=== PATIENT | male | born 2000 | race Caucasian/White ===

== ENCOUNTER 2019-06-03 17:18 | Emergency (ER) | payer OTHER, SELFPAY ==
[2019-06-03 17:20] VITALS: BP 161/73; PULSE 67; PULSE 72; RESP 16; RESP 18; TEMP 37.1; O2SAT 97; O2SAT 98; BMI 25.7
[2019-06-03 17:22] VITALS: O2SAT 96
[2019-06-03] MEDS: Etomidate 20 MG/10 ML Vial IV (17:22)
[2019-06-03] MEDS: Rocuronium Bromide 50 MG/5 ML Vial IV (17:23)
[2019-06-03] MEDS: Midazolam 2 MG/2 ML Syringe IV (17:24)
--- NOTE | 2019-06-03 17:25 | RAD_ITS ---
STUDY: X-RAY CHEST REASON FOR EXAM: Male, 18 years old. Endotracheal tube placement. TECHNIQUE: Single frontal view of the chest. COMPARISON: None. FINDINGS: There is an endotracheal tube in place terminating 2.6 cm above the jamarcus. There is perihilar fullness associated with peribronchial cuffing. Normal size heart. Normal visualized aortic arch and descending thoracic aorta. Normal visualized thoracic spine. Normal visualized ribs, clavicles, and shoulders. There is no demonstrated abnormality of the visualized soft tissue structures of the upper abdomen. RAD/Chest 1 View (Portable) IMPRESSION: Endotracheal tube terminating 2.6 cm above the jamarcus. Pulmonary venous congestion with possible associated mild edema. Electronically Signed: Virginia Clayton MD at 17:39 EST Tel , Service support ,
[2019-06-03 17:41] LABS: Bedside Glucose 151 mg/dL (70-110)
--- NOTE | 2019-06-03 17:55 | ED.RN ---
PT ARRIVED AND WAS EMERGENTLY INTUBATED AT 1725
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
== END 2019-06-03 17:54 | disposition short-term general hospital (02) ==
PROVIDERS: Emergency Provider Emergency Medicine
DX: S06.9X9A Unspecified intracranial injury with loss of consciousness of unspecified duration, initial encounter (principal); S01.01XA Laceration without foreign body of scalp, initial encounter; S80.212A Abrasion, left knee, initial encounter; R29.3 Abnormal posture; R40.2430 Glasgow coma scale score 3-8, unspecified time; V19.49XA Pedal cycle driver injured in collision with other motor vehicles in traffic accident, initial encounter; Y93.55 Activity, bike riding; Y92.9 Unspecified place or not applicable
CPT/HCPCS: 31500; 51702; 71045; 82962; 99285; J7030; A4216

== ENCOUNTER 2019-06-23 17:46 | Inpatient (IN) | payer SELFPAY, OTHER ==
[2019-06-23 17:50] VITALS: RESP 24; O2SAT 98
[2019-06-23 17:55] VITALS: BP 120/69; PULSE 87; RESP 20; TEMP 36.6; O2SAT 97; BMI 21.7
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
[2019-06-23] MEDS: Jevity 1.5 1,000 ML 60 ML GT (19:52)
[2019-06-23 20:46] LABS: Magnesium 2.4 mg/dL (1.6-2.6)
[2019-06-23 21:00] VITALS: BP 110/61; PULSE 77; RESP 28; TEMP 37.8; O2SAT 98; BMI 21.8
[2019-06-23] MEDS: traZODone 50 MG Tablet GT (21:38)
[2019-06-23] MEDS: Propranolol 10 MG Tablet 20 MG GT (21:38)
[2019-06-24] MEDS: 0.9% Saline Lock 10 ML Syringe IV ×2 (00:12→11:58)
[2019-06-24] MEDS: 0.9% NaCl IVPB Med Flush (250 mL) 15 ML IV (00:17)
--- NOTE | 2019-06-24 05:43 | NURSING ---
pt arrived to the floor via cart per ambulance . parents currently at bed side. pt is non.verbal with no movement at this time. pt has a trach with # 8 shiley, trach cuff is sutured to pt neck and is intact. lungs sounds are diminished through out, bowels sounds are present times 4 quads. oral care completed with mothers' help by talking with pt to keep his mouth open. tongue is noted to have a white coating. swabs and suctioning were used to clean oral cavity. pt repositioned 2 Q hours. pt arrived with mepilex to coccyx area and was removed during and assessment skin is intact this area, but is dark pink in color will continue to monitor. trach care and suctioning provided for comfort , pt is able to cough large amts of creamy colored secretions surgical wound noted to the crown of the head that is dark in color and wound nurse was consulted
[2019-06-24 06:40] VITALS: O2SAT 99
[2019-06-24] MEDS: Enoxaparin 30 MG/0.3 ML Syringe SC (07:12)
[2019-06-24 09:14] VITALS: BP 114/68; PULSE 72; RESP 16; TEMP 36.9; O2SAT 99
[2019-06-24] MEDS: Propranolol 10 MG Tablet 20 MG GT ×4 (09:34→22:15)
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
[2019-06-24 14:00] VITALS: BP 107/67; PULSE 84; RESP 18; TEMP 36.6; O2SAT 98
--- NOTE | 2019-06-24 15:42 | NURSING ---
wound photo: scalp
--- NOTE | 2019-06-24 16:12 | CHAPLAIN ---
Type of Pastoral Visit _x__ Initial Visit ___ Follow-up Visit ___ On-call Visit ___ General Patient Visit ___ Spiritual Assessment ___ Family Conference ___ Bereavement ___ Rapid Response ___ Code Blue ___ Other (describe below) Pastoral Care Referral From ___ Patient _x__ Family ___ Nurse ___ Physician ___ Fire Dispatcher ___ Repair Armature Winder ___ Other (describe below) Sacrament/Intervention _x__ Active listening ___ Anointing ___ Worship ___ Bereavement ___ Communion ___ Nickie exploration ___ ___ Life review _x__ Prayer ___ Reconciliation ___ Sacrament of Sick _x__ Supportive presence ___ Wedding ___ Other (describe below) Pastoral Comments parents of patient are in the room; pt is sleeping at first and then awakens during the visit; parents describe situation and the healing process so far; family is of the Juan nickie and welcome spiritual care; this slab lifting engineer also talks with pt who is not able to respond; pt looks at slab lifting engineer but not yet able to follow the conversation it appears; offer of ongoing presence and support to patient and family; family welcomes prayer
[2019-06-24] MEDS: Pivot 1.5 Cal 1,000 ML 60 ML GT (16:56)
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
[2019-06-24 19:33] VITALS: BP 123/66; PULSE 86; RESP 18; TEMP 36.1; O2SAT 97
[2019-06-24 21:14] VITALS: O2SAT 98
[2019-06-24] MEDS: traZODone 50 MG Tablet GT (22:15)
--- NOTE | 2019-06-25 01:59 | NURSING ---
PT'S INNER TRACH CANNULA CHANGED. PT TOLERATES PROCEDURE WELL. MINIMAL SPUTUM PRODUCTION AT THIS TIME. RESP ARE EVEN AND EASY. ORAL CARE GIVEN.
[2019-06-25 06:58] VITALS: O2SAT 96
[2019-06-25 07:20] LABS: International Normalized Ratio 1.1; Prothrombin Time (Protime)PT. 14.4 SECONDS (11.7-14.9)
[2019-06-25 07:21] LABS: Absolute Lymphocyte Count 1.63 X10^3/uL (0.83-4.51); Absolute Neutrophil Count 3.9 X10^3/uL (2.0-7.7); Basophil# 0.05 X10^3/uL; Basophil% 0.8 % (0-1); Eosinophil# 0.14 X10^3/uL; Eosinophils% 2.2 % (0-5); Hematocrit 32.9 % (40-54); Hemoglobin 10.2 g/dL (13.0-16.5); Lymphocyte # 1.63 X10^3/ul (4.0); Lymphocyte % 26.1 % (19-41); Mean Corpuscular Hgb 26.6 pg (27.0-32.0); Mean Corpuscular Volume 85.7 fL (80-94); Mean Platelet Vol. 11.3 fl (6.2-12.0); Monocyte# 0.51 X10^3/uL; Monocyte% 8.2 % (0-10); NRBC Flagged by Analyzer 0 % (0-5); Neutrophil % 62.4 % (47-70); Platelet Count 388 K/mm3 (150-450); RBC Distribution Width SD 43.7 fl (35.1-43.9); Red Blood Count 3.84 M/mm3 (4.6-6.2); White Blood Count 6.3 K/mm3 (4.4-11.0)
[2019-06-25 07:30] LABS: ALB/GLOB Ratio 0.6 RATIO (0.9-2.4); AST(SGOT) 43 U/L (15-37); Alanine Aminotransfer ALT/SGPT 54 U/L (16-61); Albumin, Serum 3.1 g/dL (3.2-5.0); Alkaline Phosphatase 51 U/L (45-117); Anion Gap 5 (5-15); BUN 30 mg/dL (7-18); BUN/Creat Ratio 48.5 RATIO (10-20); Chloride 112 mmol/L (98-107); Creatinine, Serum 0.62 mg/dL (0.70-1.30); EST Glomerular Filtration Rate 174 mL/min (>60); Est Glom Filt Rate - Afr Amer 211 mL/min (>60); Estimated Creatinine Clearance 167.94 ml/min; Globulin 5.1 g/dL (2.2-4.2); Glucose 116 mg/dL (74-106); Magnesium 2.4 mg/dL (1.6-2.6); Phosphorus 3.5 mg/dL (2.5-4.9); Potassium 3.8 mmol/L (3.5-5.1); Protein, Total 8.2 g/dL (6.4-8.2); Sodium Level 146 mmol/L (136-145)
[2019-06-25] MEDS: Enoxaparin 40 MG/0.4 ML Syringe SC (07:37)
[2019-06-25 08:50] VITALS: BP 112/65; PULSE 82; RESP 20; TEMP 36.7; O2SAT 96
[2019-06-25 10:00] VITALS: O2SAT 97
[2019-06-25] MEDS: Pivot 1.5 Cal 1,000 ML 60 ML GT (10:34)
[2019-06-25] MEDS: Propranolol 10 MG Tablet 20 MG GT ×4 (10:34→21:54)
[2019-06-25] MEDS: Acetaminophen 650 MG/20 ML UDC GT ×2 (10:45→18:23)
[2019-06-25] MEDS: Loperamide 2 MG Capsule GT (14:40)
[2019-06-25] MEDS: traZODone 50 MG Tablet GT (21:54)
[2019-06-25 22:00] VITALS: BP 113/58; PULSE 79; RESP 18; TEMP 36.1; O2SAT 100
--- NOTE | 2019-06-26 03:00 | NURSING ---
pt noted to be coughing with increased secretions at this time. trach care provided. cleansed around trach and new inner cannula inserted. pt tolerated procedure well. PEG care provided at this time as well.
--- NOTE | 2019-06-26 05:03 | NURSING ---
Reviewed and agree with LPNs handoff
[2019-06-26] MEDS: Pivot 1.5 Cal 1,000 ML 60 ML GT (05:45)
[2019-06-26] MEDS: Enoxaparin 40 MG/0.4 ML Syringe SC (05:45)
[2019-06-26] MEDS: Acetaminophen 650 MG/20 ML UDC GT ×3 (06:00→22:54)
--- NOTE | 2019-06-26 06:15 | NURSING ---
pt had increased secretions at this time, suction done. pt tolerated procedure well. lungs clear. coughs up excess secretions with ease. will continue to monitor for the need to suction.
[2019-06-26 07:00] VITALS: BP 119/68; PULSE 82; RESP 18; TEMP 36.8; O2SAT 98
[2019-06-26 07:52] VITALS: O2SAT 98
[2019-06-26] MEDS: Propranolol 10 MG Tablet 20 MG GT ×4 (08:33→22:54)
[2019-06-26] MEDS: Menthol/Lanolin/Calamine/Znox 113 GM Tube 1 APPLIC TOPICAL ×3 (08:33→22:50)
[2019-06-26] MEDS: Loperamide 2 MG Capsule GT ×2 (08:33→14:32)
--- NOTE | 2019-06-26 14:03 | NURSING ---
Message left for Dr. Ruby office nurse to have call back regarding culture report.
--- NOTE | 2019-06-26 14:30 | NURSING ---
Dr. Ruby nurse Bethany reported that he is out for the day and Dr. Sow has been made aware. NNO's per Dr. Sow. Patient is afebrile.
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
[2019-06-26 22:00] VITALS: BP 118/72; PULSE 80; RESP 18; TEMP 36.3; O2SAT 95; O2SAT 97
[2019-06-26] MEDS: traZODone 50 MG Tablet GT (22:54)
[2019-06-27] MEDS: Pivot 1.5 Cal 1,000 ML 60 ML GT ×2 (01:17→21:29)
[2019-06-27] MEDS: Enoxaparin 40 MG/0.4 ML Syringe SC (04:51)
--- NOTE | 2019-06-27 06:43 | NURSING ---
Reviewed and agree with LPNs handoff
[2019-06-27] MEDS: Menthol/Lanolin/Calamine/Znox 113 GM Tube 1 APPLIC TOPICAL ×3 (07:00→21:35)
--- NOTE | 2019-06-27 07:52 | PCM.PN.BLA ---
Progress Note Received call from nursing staff regarding the patient's sputum culture which was positive for Klebsiella pneumonia with 2+ growth. The organism appears to be pansensitive. However, given that the patient remains afebrile and is clinically stable without evidence of an elevated white blood cell count or significant airway secretions, I do not see an indication for antibiotics to be started at this time. We will continue to monitor accordingly.
[2019-06-27 08:02] VITALS: BP 101/52; PULSE 70; RESP 20; TEMP 36.9; O2SAT 99
[2019-06-27] MEDS: Propranolol 10 MG Tablet 20 MG GT ×4 (08:42→21:37)
[2019-06-27] MEDS: Acetaminophen 650 MG/20 ML UDC GT ×2 (08:42→21:37)
[2019-06-27 08:50] VITALS: O2SAT 98
[2019-06-27] MEDS: Loperamide 2 MG Capsule GT ×3 (09:22→21:37)
[2019-06-27 12:20] VITALS: O2SAT 98
[2019-06-27] MEDS: Fluconazole Suspension 40 MG/ML 35 ML Bottle 200 MG GT (15:25)
[2019-06-27 18:51] LABS: Bedside Glucose 102 mg/dL (70-110)
[2019-06-27 19:32] VITALS: BP 119/83; PULSE 81; RESP 18; TEMP 36.7; O2SAT 98
[2019-06-27] MEDS: traZODone 50 MG Tablet GT (21:37)
[2019-06-27 22:00] VITALS: PULSE 81; RESP 16
[2019-06-28] MEDS: Pivot 1.5 Cal 1,000 ML 60 ML GT ×2 (05:53→17:53)
[2019-06-28] MEDS: Loperamide 2 MG Capsule GT ×3 (05:53→21:20)
[2019-06-28] MEDS: Enoxaparin 40 MG/0.4 ML Syringe SC (06:02)
[2019-06-28] MEDS: Menthol/Lanolin/Calamine/Znox 113 GM Tube 1 APPLIC TOPICAL ×3 (06:03→21:18)
[2019-06-28 07:05] LABS: Bedside Glucose 102 mg/dL (70-110)
[2019-06-28 07:21] VITALS: BP 107/65; PULSE 85; RESP 17; TEMP 36.9; O2SAT 97
[2019-06-28 08:08] VITALS: O2SAT 95
[2019-06-28] MEDS: Propranolol 10 MG Tablet 20 MG GT ×4 (08:52→21:20)
[2019-06-28] MEDS: Fluconazole Suspension 40 MG/ML 35 ML Bottle 200 MG GT (08:52)
[2019-06-28] MEDS: Acetaminophen 650 MG/20 ML UDC GT ×2 (14:38→21:18)
[2019-06-28 17:01] LABS: Bedside Glucose 124 mg/dL (70-110)
[2019-06-28 19:30] VITALS: BP 113/70; PULSE 77; RESP 16; TEMP 36.6; O2SAT 97
[2019-06-28] MEDS: traZODone 50 MG Tablet GT (21:20)
[2019-06-28 22:00] VITALS: RESP 16
[2019-06-29 05:45] LABS: Absolute Lymphocyte Count 1.71 X10^3/uL (0.83-4.51); Absolute Neutrophil Count 4.4 X10^3/uL (2.0-7.7); Basophil# 0.03 X10^3/uL; Basophil% 0.4 % (0-1); Eosinophil# 0.14 X10^3/uL; Hematocrit 34.1 % (40-54); Hemoglobin 10.9 g/dL (13.0-16.5); Lymphocyte # 1.71 X10^3/ul (4.0); Mean Corpuscular Hgb 26.5 pg (27.0-32.0); Mean Platelet Vol. 11.3 fl (6.2-12.0); Monocyte# 0.55 X10^3/uL; NRBC Flagged by Analyzer 0 % (0-5); Neutrophil # 4.39 X10^3/uL (2.7-7.7); Neutrophil % 64.2 % (47-70); Platelet Count 261 K/mm3 (150-450); RBC Distribution Width CV 14.3 % (11.6-14.6); RBC Distribution Width SD 42.3 fl (35.1-43.9); Red Blood Count 4.11 M/mm3 (4.6-6.2); White Blood Count 6.9 K/mm3 (4.4-11.0)
[2019-06-29 05:55] LABS: Anion Gap 6 (5-15); BUN 25 mg/dL (7-18); BUN/Creat Ratio 36.8 RATIO (10-20); Calcium,Total 9.2 mg/dL (8.5-10.1); Chloride 104 mmol/L (98-107); Creatinine, Serum 0.68 mg/dL (0.70-1.30); EST Glomerular Filtration Rate 156 mL/min (>60); Est Glom Filt Rate - Afr Amer 189 mL/min (>60); Estimated Creatinine Clearance 153.13 ml/min; Glucose 116 mg/dL (74-106); Magnesium 1.9 mg/dL (1.6-2.6); Phosphorus 4.2 mg/dL (2.5-4.9); Potassium 3.9 mmol/L (3.5-5.1); Sodium Level 137 mmol/L (136-145)
[2019-06-29] MEDS: Enoxaparin 40 MG/0.4 ML Syringe SC (06:01)
[2019-06-29] MEDS: Loperamide 2 MG Capsule GT ×4 (06:02→21:47)
[2019-06-29] MEDS: Menthol/Lanolin/Calamine/Znox 113 GM Tube 1 APPLIC TOPICAL ×3 (06:02→21:47)
[2019-06-29 06:56] LABS: Bedside Glucose 125 mg/dL (70-110)
[2019-06-29 08:07] VITALS: BP 104/58; PULSE 69; RESP 16; TEMP 36.9; O2SAT 99
[2019-06-29] MEDS: Fluconazole Suspension 40 MG/ML 35 ML Bottle 200 MG GT (09:01)
[2019-06-29] MEDS: Acetaminophen 650 MG/20 ML UDC GT (09:02)
[2019-06-29] MEDS: Propranolol 10 MG Tablet 20 MG GT ×4 (09:02→21:59)
--- NOTE | 2019-06-29 12:25 | CASEMGMT ---
Social Work IDT met with patient and parents for Team Meeting. Discussed patient's progress in therapy. Pt is able to track with his eyes, focusing better, and starting to respond with facial expressions. Pt's head control is limited but able to turn head on his own at times. Pt is yuriy lift for transfers, OT working on ROM - pt has more tone on right side than left. Pt able to follow directions at times, just needing extra time to process and perform task. Pt is total assist for ADLs. ST continuing to work on processing. Nursing in tune with facial expressions or body sings to asses for pain. Therapy recommending neck brace to assist with neck muscles and strength. Left message with [employer] for quote as pt is private pay. Pt was approved at [facility] and will transfer 06/30. Plan: Transfer to [facility] 06/30. LENORE Kimbrough
[2019-06-29] MEDS: Pivot 1.5 Cal 1,000 ML 60 ML GT (13:27)
--- NOTE | 2019-06-29 13:39 | NURSING ---
the scabbed area to the posterior head remains dry and stable. no surrounding erythema. the scab is loosening slightly around the edges. will continue to monitor. pt will be moving down to TCU tomorrow. will follow patient there as needed as well.
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
--- NOTE | 2019-06-29 17:02 | CHAPLAIN ---
Type of Pastoral Visit ___ Initial Visit _x__ Follow-up Visit ___ On-call Visit ___ General Patient Visit ___ Spiritual Assessment ___ Family Conference ___ Bereavement ___ Rapid Response ___ Code Blue ___ Other (describe below) Pastoral Care Referral From ___ Patient _x__ Family ___ Nurse ___ Physician ___ General Office Worker ___ Peoplesoft Developer ___ Other (describe below) Sacrament/Intervention ___ Active listening ___ Anointing ___ Jew ___ Bereavement ___ Communion ___ Nickie exploration ___ ___ Life review _x__ Prayer ___ Reconciliation ___ Sacrament of Sick _x__ Supportive presence ___ Wedding ___ Other (describe below) Pastoral Comments mother of patient is in the room with him; talked with mother but pt is alert and seems to be aware of the conversation and surroundings
[2019-06-29] MEDS: tiZANidine HCl 2 MG Tablet GT (21:47)
[2019-06-29] MEDS: traZODone 50 MG Tablet GT (21:47)
[2019-06-29 22:00] VITALS: BP 115/62; PULSE 78; RESP 16; TEMP 36.3; O2SAT 97
[2019-06-30] MEDS: Pivot 1.5 Cal 1,000 ML 60 ML GT (04:15)
[2019-06-30] MEDS: Enoxaparin 40 MG/0.4 ML Syringe SC (06:14)
[2019-06-30] MEDS: Loperamide 2 MG Capsule GT ×2 (06:14→13:45)
[2019-06-30] MEDS: Menthol/Lanolin/Calamine/Znox 113 GM Tube 1 APPLIC TOPICAL ×2 (06:15→13:45)
[2019-06-30 09:32] VITALS: BP 110/71; PULSE 76; RESP 16; TEMP 36.7; O2SAT 97
[2019-06-30] MEDS: Fluconazole Suspension 40 MG/ML 35 ML Bottle 200 MG GT (09:38)
[2019-06-30] MEDS: Propranolol 10 MG Tablet 20 MG GT ×2 (09:38→13:45)
[2019-06-30] MEDS: Acetaminophen 650 MG/20 ML UDC GT (09:42)
[2019-06-30 09:55] VITALS: O2SAT 95
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
[2019-06-30 13:24] VITALS: BP 112/70; PULSE 76; RESP 16; TEMP 36.7; O2SAT 98
[2019-06-30 14:02] VITALS: BP 112/70; PULSE 76; RESP 16; TEMP 36.7; O2SAT 98
--- NOTE | 2019-06-30 14:04 | NURSING ---
discharged to TCU. Family present. denies questions or concerns.
== END 2019-06-30 14:00 | disposition skilled nursing facility (03) | DRG 949 ==
PROVIDERS: Family Medicine; Hospitalist; Admitting Provider Internal Medicine; Family Provider Family Medicine; PCP Family Medicine; Visit Provider Internal Medicine
DX: S06.5X Traumatic subdural hemorrhage (principal); J96.11 Chronic respiratory failure with hypoxia; D62 Acute posthemorrhagic anemia; S27.329D Contusion of lung, unspecified, subsequent encounter; V13.4XXD Pedal cycle driver injured in collision with car, pick-up truck or van in traffic accident, subsequent encounter; Z93.0 Tracheostomy status; Z93.1 Gastrostomy status
CPT/HCPCS: 31502; 31720; 36415; 80048; 80053; 82962; 83735; 84100; 85025; 85610; 87070; 87077; 87186; 87205; 92507; 92523; 92526; 92610; 97110; 97112; 97140; 97162; 97166; 97530; 97535; 97802; 97803; 99251; J7050; A4216; G0463; J0295

== ENCOUNTER 2019-06-30 14:00 | Inpatient (IN) | payer SELFPAY, OTHER ==
[2019-06-30 14:44] VITALS: BP 104/61; PULSE 74; RESP 16; TEMP 36.7; BMI 22.1
--- NOTE | 2019-06-30 16:19 | NURSING ---
PT ARRIVED FROM REHAB FLOOR BY BED AT 1400. FAMILY WITH PT.
--- NOTE | 2019-06-30 16:22 | NS ---
Recommend Jevity 1.5 via PEG at goal rate of 60mL/hour w/ 200mL H2O flush every 4 hours to provide 2160 calories, 91.8 g protein, and 2294mL total fluid per day. Would recommend starting Jevity at 20mL/hour and increase by 20mL every 8 hours as res tolerates until goal rate achieved. May be appropriate to transition res to bolus feeds as new formula is tolerated- consult RD for adjusted recommendations as warranted. Lizy Ayoub MS, RDN, LD
--- NOTE | 2019-06-30 18:16 | NURSING ---
PT FAMILY WISHES FOR PT TO BE FULL CODE. REPORTED TO HELEN CMCAIN
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
[2019-06-30] MEDS: MELATONIN 10 MG TABLET 5 MG PO (22:14)
[2019-06-30] MEDS: Menthol/Lanolin/Calamine/Znox 113 GM Tube 1 APPLIC TOPICAL (22:15)
[2019-06-30] MEDS: tiZANidine HCl 2 MG Tablet GT (22:15)
[2019-06-30] MEDS: Propranolol 10 MG Tablet 20 MG GT (22:23)
[2019-06-30] MEDS: Jevity 1.5 1,000 ML 60 ML GT (22:32)
--- NOTE | 2019-06-30 23:05 | NURSING ---
Per Darvin in pharmacy administer 2200 Propranolol now hold 1700 dosage. Bottle of Jevity hung at this time.
[2019-07-01] MEDS: Fluconazole Suspension 40 MG/ML 35 ML Bottle 200 MG GT (03:56)
[2019-07-01] MEDS: Propranolol 10 MG Tablet 20 MG GT ×4 (03:58→20:51)
[2019-07-01] MEDS: Menthol/Lanolin/Calamine/Znox 113 GM Tube 1 APPLIC TOPICAL ×3 (03:58→20:51)
[2019-07-01] MEDS: Enoxaparin 40 MG/0.4 ML Syringe SC (04:09)
[2019-07-01 06:17] LABS: Absolute Lymphocyte Count 1.67 X10^3/uL (0.83-4.51); Absolute Neutrophil Count 5.2 X10^3/uL (2.0-7.7); Basophil# 0.05 X10^3/uL; Basophil% 0.6 % (0-1); Eosinophil# 0.14 X10^3/uL; Eosinophils% 1.8 % (0-5); Hematocrit 36.1 % (40-54); Hemoglobin 11.4 g/dL (13.0-16.5); Lymphocyte # 1.67 X10^3/ul (4.0); Lymphocyte % 21.4 % (19-41); Mean Corp Hgb Conc 31.6 g/dL (32-36); Mean Corpuscular Hgb 26.4 pg (27.0-32.0); Mean Corpuscular Volume 83.6 fL (80-94); Mean Platelet Vol. 11.8 fl (6.2-12.0); Monocyte# 0.66 X10^3/uL; Monocyte% 8.5 % (0-10); NRBC Flagged by Analyzer 0 % (0-5); Neutrophil # 5.23 X10^3/uL (2.7-7.7); Neutrophil % 67.2 % (47-70); Platelet Count 256 K/mm3 (150-450); RBC Distribution Width CV 14.6 % (11.6-14.6); RBC Distribution Width SD 43.9 fl (35.1-43.9); Red Blood Count 4.32 M/mm3 (4.6-6.2); White Blood Count 7.8 K/mm3 (4.4-11.0)
[2019-07-01 06:27] LABS: Anion Gap 6 (5-15); BUN 22 mg/dL (7-18); BUN/Creat Ratio 31.6 RATIO (10-20); Calcium,Total 9.5 mg/dL (8.5-10.1); Chloride 105 mmol/L (98-107); EST Glomerular Filtration Rate 152 mL/min (>60); Est Glom Filt Rate - Afr Amer 184 mL/min (>60); Estimated Creatinine Clearance 151.11 ml/min; Glucose 122 mg/dL (74-106); Potassium 3.9 mmol/L (3.5-5.1); Sodium Level 139 mmol/L (136-145)
[2019-07-01 06:55] LABS: Phosphorus 4.8 mg/dL (2.5-4.9)
[2019-07-01 10:56] VITALS: BP 113/57; PULSE 86
[2019-07-01] MEDS: Tuberculin,Purif.prot.deriv. 50 TU/ML Vial 5 ML ID (10:58)
[2019-07-01 15:16] VITALS: BP 106/62; PULSE 73; RESP 18; TEMP 36.7; O2SAT 97
[2019-07-01] MEDS: Jevity 1.5 1,000 ML 60 ML GT (16:00)
[2019-07-01] MEDS: tiZANidine HCl 2 MG Tablet GT (20:51)
[2019-07-01] MEDS: MELATONIN 10 MG TABLET 5 MG PO (20:51)
[2019-07-02] MEDS: Fluconazole Suspension 40 MG/ML 35 ML Bottle 200 MG GT (04:56)
[2019-07-02] MEDS: Propranolol 10 MG Tablet 20 MG GT ×2 (04:56→11:32)
[2019-07-02] MEDS: Menthol/Lanolin/Calamine/Znox 113 GM Tube 1 APPLIC TOPICAL (04:57)
[2019-07-02] MEDS: Enoxaparin 40 MG/0.4 ML Syringe SC (05:13)
--- NOTE | 2019-07-02 07:35 | NURSING ---
INnner cannula changed with AM med pass. Pt tolerated well
[2019-07-02] MEDS: Jevity 1.5 1,000 ML 60 ML GT (11:39)
--- NOTE | 2019-07-02 15:20 | PCM.PN.RX ---
<Khadra Vo M - Last Filed: 07/02/19 15:20> Progress Note - Pharmacy Subjective: TCU ADMISSION Objective: Allergies Unable to Assess Allergy (Verified 06/03/19 17:47) Current Medications Generic Name Dose Route Start Last Admin Trade Name Freq PRN Reason Stop Dose Admin Acetaminophen 650 mg 06/30/19 15:19 Tylenol Liquid GT Q6H PRN PRN Pain 1-10 or Fever Bisacodyl 10 mg 06/30/19 15:19 Dulcolax RECTAL DAILY PRN Constipation Calamine/Phenol 1 applic 06/30/19 22:00 07/02/19 04:57 Calmoseptine Ointment TOPICAL 1 applicatio TID MIGUEL ÁNGEL Administration Protocol Enoxaparin Sodium 40 mg 07/01/19 06:00 07/02/19 05:13 Lovenox SC 40 mg DAILY@0600 MIGUEL ÁNGEL Administration Fluconazole 200 mg 07/01/19 06:00 07/02/19 04:56 Fluconazole GT 07/10/19 06:01 200 mg DAILY MIGUEL ÁNGEL Administration Enteral Nutritional Formula 1,000 mls @ 60 mls/hr 06/30/19 15:30 07/02/19 11:39 Jevity 1.5 GT 60 mls/hr .[id number] MIGUEL ÁNGEL Administration Loperamide HCl 2 mg 06/30/19 15:19 Imodium Liquid GT Q4H PRN PRN Diarrhea Loperamide HCl 2 mg 06/30/19 22:00 07/02/19 14:37 Imodium Liquid PO Not Given Q8 MIGUEL ÁNGEL Melatonin 5 mg 06/30/19 22:00 07/01/19 20:51 Melatonin PO 5 mg QHS MIGUEL ÁNGEL Administration Multi-Ingredient Cream 1 applic 06/30/19 22:00 07/01/19 20:51 Eucerin TOPICAL 1 applicatio QHS MIGUEL ÁNGEL Administration Protocol Propranolol HCl 20 mg 06/30/19 17:00 07/02/19 11:32 Inderal GT 20 mg 4X/DAY MIGUEL ÁNGEL Administration Tizanidine HCl 2 mg 06/30/19 20:00 07/01/19 20:51 Zanaflex GT 2 mg QHS@2000 MIGUEL ÁNGEL Administration Tuberculin PPD 5 tu 07/08/19 10:00 Tubersol, Aplisol, Ppd ID 07/08/19 10:01 X1 ONE Problem List (Last Reviewed 06/24/19 @ 12:43 by AVEL Cheng Debility (Acute) Scalp laceration (Chronic) Insomnia (Chronic) Vital Signs Temp Pulse Resp BP Pulse Ox 98.1 F 73 18 106/62 97 07/01/19 15:16 07/01/19 15:16 07/01/19 15:16 07/01/19 15:16 07/01/19 15:16 Oxygen Flow Rate (L/min) 4 Oxygen Delivery Method Trach Collar Weight: 64 kg Body Mass Index (BMI) 22.1 Finger Stick Blood Glucose 151 Sodium 139 mmol/L (136-145) 07/01/19 05:05 Potassium 3.9 mmol/L (3.5-5.1) 07/01/19 05:05 Chloride 105 mmol/L (98-107) 07/01/19 05:05 Carbon Dioxide 28.0 mmol/L (21.0-32.0) 07/01/19 05:05 Anion Gap 6 (5-15) 07/01/19 05:05 BUN 22 mg/dL (7-18) H 07/01/19 05:05 Creatinine 0.70 mg/dL (0.70-1.30) 07/01/19 05:05 Est GFR (MDRD) Af Amer 184 mL/min (>60) 07/01/19 05:05 Est GFR (MDRD) Non-Af 152 mL/min (>60) 07/01/19 05:05 BUN/Creatinine Ratio 31.6 RATIO (10-20) H 07/01/19 05:05 Glucose 122 mg/dL (74-106) H 07/01/19 05:05 Assessment/Plan: 1. Pain: Tylenol Liquid 650mg GT Q6H PRN pain. Please continue to monitor PRN usage, S/S of increased or decreased pain 2. DVT prophylaxis: Lovenox 40mg SC daily. Please continue to monitor renal function, S/S bleeding and/or bruising 3. Thrush: Fluconazole 200mg GT daily thru 07/10/2019. Please continue to monitor for thrush improvement, medication effectiveness *4. Insomnia - Melatonin 5mg GT QHS. Please continue to monitor for medication effectiveness. May consider re-timing med ~2hrs prior to patient's bedtime for optimum results. 5. Tachycardia - Propranolol 20mg GT 4x/day. Please continue to monitor pulse, BP, medication effectiveness 6. Muscle spasm - Tizanidine 2mg GT QHS. Please continue to monitor patient for continued spasms, medication effectiveness Psychotropic Medications: None Unnecessary Medications: None *Bowel Regimen: Imodium 2mg GT Q8H, Imodium 2mg GT Q4H PRN diarrhea, Dulcolax 10mg OH daily PRN constipation. Please continue to monitor patient's bowel status, amount of bowel movements/diarrhea. Should the patient become constipated, consider discontinuing the patient's scheduled Imodium as to not further his constipation Date of Note:: 07/02/19 - Provider Comments Provider responsibility: Provider responsible to enter orders to implement recommendations <Joe Amaral Chi - Last Filed: 07/02/19 20:25> Progress Note - Pharmacy Subjective: [] Objective: Allergies Unable to Assess Allergy (Verified 06/03/19 17:47) Vital Signs Temp Pulse Resp BP Pulse Ox 98.1 F 66 17 112/65 98 07/02/19 16:00 07/02/19 16:00 07/02/19 16:00 07/02/19 16:00 07/02/19 16:00 Oxygen Flow Rate (L/min) 4 Oxygen Delivery Method Room Air Weight: 64 kg Body Mass Index (BMI) 22.1 Finger Stick Blood Glucose 151 Sodium 139 mmol/L (136-145) 07/01/19 05:05 Potassium 3.9 mmol/L (3.5-5.1) 07/01/19 05:05 Chloride 105 mmol/L (98-107) 07/01/19 05:05 Carbon Dioxide 28.0 mmol/L (21.0-32.0) 07/01/19 05:05 Anion Gap 6 (5-15) 07/01/19 05:05 BUN 22 mg/dL (7-18) H 07/01/19 05:05 Creatinine 0.70 mg/dL (0.70-1.30) 07/01/19 05:05 Est GFR (MDRD) Af Amer 184 mL/min (>60) 07/01/19 05:05 Est GFR (MDRD) Non-Af 152 mL/min (>60) 07/01/19 05:05 BUN/Creatinine Ratio 31.6 RATIO (10-20) H 07/01/19 05:05 Glucose 122 mg/dL (74-106) H 07/01/19 05:05 Assessment/Plan: Psychotropic Medications: Unnecessary Medications: Bowel Regimen: - Provider Comments Provider responsibility: Provider responsible to enter orders to implement recommendations Provider Comments to Recommendations by Pharmacy: Agree
[2019-07-02 16:00] VITALS: BP 112/65; PULSE 66; RESP 17; TEMP 36.7; O2SAT 98
--- NOTE | 2019-07-02 17:49 | NURSING ---
Dr Mims's nurse practitioner, Melba regarding plastic white piece sticking up on Rt side of scalp. no drng or s/s infection noted. She states that is his shunt and he needs to be transferred back to [facility][1] to ER to be admitted, high risk of infection. DR Amaral updated, pt being transferred by [facility]. Family updated, mother stated that she was never told he had a shunt.
--- NOTE | 2019-07-02 17:51 | DCINST_ITS ---
- Discharge Diagnoses Current Active Problems: Current Active and Chronic Problems (Last Reviewed 06/24/19 @ 12:43 by Lisa Daly DO) Debility (Acute) Scalp laceration (Chronic) Insomnia (Chronic) You will use the following diet at home:: Other - NPO. Discharge Activity: Return to Normal Activity Call your doctor if you observe: Fever of 101 or Higher, Inability to urinate, Inability to have a bowel movement, Chest pain, Uncontrolled pain Allergies/Adverse Reactions: Allergies Unable to Assess Allergy (Verified 06/03/19 17:47) Medications to take at Discharge Jevity 1.5 60 ml GT DAILY 06/23/19 Propranolol HCl [Inderal (Beta Paco)] 20 mg GT 4X/DAY 06/23/19 Acetaminophen Liquid [Tylenol Liquid] 650 mg GT Q6H PRN PRN udc 06/30/19 Bisacodyl [Dulcolax] 10 mg RECTAL DAILY PRN 06/30/19 Enoxaparin [Lovenox] 40 mg SUBCUT DAILY@0600 06/30/19 Fluconazole Suspension [Fluconazole] 200 mg GT DAILY 06/30/19 Loperamide [Imodium] 2 mg GT Q4H PRN PRN cap 06/30/19 Loperamide [Imodium] 2 mg GT Q8 06/30/19 Melatonin/Pyridoxine [Melatonin 5 mg Tablet] 1 ea PO QHS 06/30/19 Menthol/Lanolin/Calamine/Znox [Calmoseptine Ointment] 1 applic TOPICAL TID 06/30/19 Tizanidine HCl [Zanaflex] 2 mg GT QHS@2000 06/30/19 Loperamide [Imodium Liquid] 2 mg PO Q8 ml 07/02/19 Mineral Oil/Petrolatum,White [Eucerin] 1 applic TOPICAL QHS jar 07/02/19 Primary Care Physician: Darvin Telles MD [Primary Care Provider] - Test Results: Test results from this visit will be discussed in further detail at your follow- up appointment, if applicable. Please Follow Up With: Dr. Leia Lynne Proposed Discharge Date: 07/02/19
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
--- NOTE | 2019-07-02 18:24 | NURSING ---
report called to [facility] at this time. oliveira summit here and pt placed on cot, oxygen via trach collar at 28%. PEG tube disconnected from kangaroo pump and flushed for transport. mother at side.
--- NOTE | 2019-07-02 22:59 | NURSING ---
Call from HELEN Solomon at [facility] stating pt is discharged and will be returning back to the unit tonight. Stating Dr. Lynne was consulted and the area is fine to schedule a F/U. He stated no medications were administered, no labs taken or no images were taken. Pt to depart via cot between [phone].
[2019-07-03] VITALS: BP 120/67; PULSE 74; RESP 18; TEMP 37.2
[2019-07-03] MEDS: Jevity 1.5 1,000 ML 60 ML GT ×2 (00:14→19:10)
[2019-07-03] MEDS: MELATONIN 10 MG TABLET 5 MG PO ×2 (00:16→21:47)
[2019-07-03] MEDS: Propranolol 10 MG Tablet 20 MG GT ×5 (00:17→21:47)
[2019-07-03] MEDS: tiZANidine HCl 2 MG Tablet GT ×2 (00:17→21:47)
[2019-07-03] MEDS: Menthol/Lanolin/Calamine/Znox 113 GM Tube 1 APPLIC TOPICAL ×4 (00:28→21:49)
[2019-07-03] MEDS: Fluconazole Suspension 40 MG/ML 35 ML Bottle 200 MG GT (05:27)
[2019-07-03] MEDS: Enoxaparin 40 MG/0.4 ML Syringe SC (05:29)
[2019-07-03 06:11] LABS: Absolute Lymphocyte Count 1.57 X10^3/uL (0.83-4.51); Absolute Neutrophil Count 3.1 X10^3/uL (2.0-7.7); Basophil# 0.05 X10^3/uL; Basophil% 0.9 % (0-1); Eosinophils% 1.9 % (0-5); Hematocrit 34.6 % (40-54); Lymphocyte # 1.57 X10^3/ul (4.0); Lymphocyte % 29.1 % (19-41); Mean Corp Hgb Conc 31.8 g/dL (32-36); Mean Corpuscular Hgb 26.4 pg (27.0-32.0); Mean Platelet Vol. 11.8 fl (6.2-12.0); Monocyte# 0.55 X10^3/uL; Monocyte% 10.2 % (0-10); NRBC Flagged by Analyzer 0 % (0-5); Neutrophil # 3.12 X10^3/uL (2.7-7.7); Neutrophil % 57.7 % (47-70); Platelet Count 209 K/mm3 (150-450); RBC Distribution Width CV 14.6 % (11.6-14.6); RBC Distribution Width SD 43.8 fl (35.1-43.9); Red Blood Count 4.17 M/mm3 (4.6-6.2); White Blood Count 5.4 K/mm3 (4.4-11.0)
[2019-07-03 06:28] LABS: Anion Gap 5 (5-15); BUN 19 mg/dL (7-18); Calcium,Total 9.5 mg/dL (8.5-10.1); Chloride 104 mmol/L (98-107); Creatinine, Serum 0.73 mg/dL (0.70-1.30); EST Glomerular Filtration Rate 144 mL/min (>60); Est Glom Filt Rate - Afr Amer 174 mL/min (>60); Glucose 140 mg/dL (74-106); Magnesium 2.1 mg/dL (1.6-2.6); Phosphorus 4.8 mg/dL (2.5-4.9); Potassium 3.9 mmol/L (3.5-5.1); Sodium Level 139 mmol/L (136-145)
[2019-07-03 12:16] VITALS: BP 108/60; PULSE 86
[2019-07-03] MEDS: Acetaminophen 650 MG/20 ML UDC GT (13:40)
--- NOTE | 2019-07-03 15:09 | MDS.RN ---
staff observation for pain for gage 07/07/19 completed.
[2019-07-03 16:00] VITALS: BP 100/62; PULSE 73; RESP 18; TEMP 37.1; O2SAT 98
--- NOTE | 2019-07-03 16:17 | NURSING ---
spoke to DR Cabrera's membership secretary, he wants to see pt on at 3pm to assess the ICP monitor or possible shunt that is protruding from pt head. Wants staff to cover protruding object w/4x4 gauze to protect site. Mother has many questions since pt nonverbal. Called Dr Haji office left message that mother needs to speak with someone regarding what they will actually do while pt at their office. Family leery about sending pt in another ambulance for transport since [facility] did nothing last evening and they are private pay. awaiting return call.
[2019-07-04] MEDS: Enoxaparin 40 MG/0.4 ML Syringe SC (06:48)
[2019-07-04] MEDS: Propranolol 10 MG Tablet 20 MG GT ×4 (06:50→21:57)
[2019-07-04] MEDS: Fluconazole Suspension 40 MG/ML 35 ML Bottle 200 MG GT (06:53)
[2019-07-04] MEDS: Menthol/Lanolin/Calamine/Znox 113 GM Tube 1 APPLIC TOPICAL ×3 (07:10→22:02)
[2019-07-04 11:00] VITALS: BP 108/70; PULSE 75; O2SAT 94
[2019-07-04] MEDS: Acetaminophen 650 MG/20 ML UDC GT ×2 (11:03→21:55)
[2019-07-04 13:30] VITALS: O2SAT 99
--- NOTE | 2019-07-04 13:30 | CPS ---
Found cool aerosol running off 4lpm, increased to 6lpm as required by manufacturers guidelines.
[2019-07-04 16:00] VITALS: BP 109/70; PULSE 68; RESP 18; TEMP 36.5; O2SAT 99
[2019-07-04] MEDS: Jevity 1.5 1,000 ML 60 ML GT (16:20)
[2019-07-04] MEDS: MELATONIN 10 MG TABLET 5 MG PO (21:57)
[2019-07-04] MEDS: tiZANidine HCl 2 MG Tablet GT (21:57)
--- NOTE | 2019-07-04 23:42 | NURSING ---
Inner cannula changed this AM pt tolerated well.
[2019-07-05] MEDS: Fluconazole Suspension 40 MG/ML 35 ML Bottle 200 MG GT (06:17)
[2019-07-05] MEDS: Enoxaparin 40 MG/0.4 ML Syringe SC (06:17)
[2019-07-05] MEDS: Propranolol 10 MG Tablet 20 MG GT ×4 (06:17→21:28)
[2019-07-05] MEDS: Menthol/Lanolin/Calamine/Znox 113 GM Tube 1 APPLIC TOPICAL ×3 (06:21→21:39)
--- NOTE | 2019-07-05 06:47 | NURSING ---
Cleaning performed using sterile technique, inner cannula replaced with new one. Cleansed tracheostomy site using normal saline, moistened cotton applicator and 4x4 gauze and a dried 4x4 gauze. Ostomy site tissue intact and a small amount of drainage on old dressing. Pt tolerated well call light within reach and HOB elevated at 30 degrees.
[2019-07-05] MEDS: Jevity 1.5 1,000 ML 60 ML GT (11:40)
[2019-07-05 13:40] VITALS: O2SAT 99
[2019-07-05 16:00] VITALS: BP 105/62; PULSE 69; RESP 20; TEMP 37.1; O2SAT 99
--- NOTE | 2019-07-05 19:14 | NURSING ---
Inner cannula changed, 4x4 split gauze replaced after cleaning stoma, pt coughed up small amount of sputum, Ostomy site cleaned small amount of dry crusty drainage, split drg changed, Jevity maintained through pump, pt tolerated procedure well
[2019-07-05] MEDS: MELATONIN 10 MG TABLET 5 MG PO (21:29)
[2019-07-05] MEDS: tiZANidine HCl 2 MG Tablet GT (21:29)
[2019-07-06] MEDS: Enoxaparin 40 MG/0.4 ML Syringe SC (06:19)
[2019-07-06] MEDS: Propranolol 10 MG Tablet 20 MG GT ×4 (06:21→21:19)
[2019-07-06] MEDS: Fluconazole Suspension 40 MG/ML 35 ML Bottle 200 MG GT (06:22)
[2019-07-06] MEDS: Menthol/Lanolin/Calamine/Znox 113 GM Tube 1 APPLIC TOPICAL ×3 (06:31→22:33)
[2019-07-06] MEDS: Jevity 1.5 1,000 ML 60 ML GT (06:58)
[2019-07-06 07:33] VITALS: O2SAT 98
--- NOTE | 2019-07-06 09:54 | NURSING ---
Contacted in regards to upcoming appointment. Mom wanted to verify that they will be doing something at this appointment. This nurse spoke with Elizabet snyder nurse in the doctors office. She told this nurse that the white hardware will either be removed in the office tomorrow or the pt will be admitted to [facility] to have it removed. Mom aware of plan and is agreeable.
[2019-07-06] MEDS: Acetaminophen 650 MG/20 ML UDC GT ×2 (14:32→21:34)
[2019-07-06 16:00] VITALS: BP 122/71; PULSE 53; RESP 18; TEMP 36.7; O2SAT 99
--- NOTE | 2019-07-06 19:16 | NURSING ---
Inner canula changed, 4x4 split gauze applied after cleaning stoma, pt coughed up large amount of sputum. Jevity maintained through pump, Pt tolerated well.
[2019-07-06] MEDS: MELATONIN 10 MG TABLET 5 MG PO (21:19)
[2019-07-06] MEDS: tiZANidine HCl 2 MG Tablet GT (21:19)
[2019-07-07] MEDS: Jevity 1.5 1,000 ML 60 ML GT (04:11)
[2019-07-07] MEDS: Propranolol 10 MG Tablet 20 MG GT ×4 (06:29→21:44)
[2019-07-07] MEDS: Fluconazole Suspension 40 MG/ML 35 ML Bottle 200 MG GT (06:29)
[2019-07-07] MEDS: Enoxaparin 40 MG/0.4 ML Syringe SC (06:34)
[2019-07-07] MEDS: Menthol/Lanolin/Calamine/Znox 113 GM Tube 1 APPLIC TOPICAL ×3 (06:47→22:12)
[2019-07-07 09:40] VITALS: PULSE 55; RESP 18
[2019-07-07] MEDS: Acetaminophen 650 MG/20 ML UDC GT ×2 (11:19→21:43)
--- NOTE | 2019-07-07 13:52 | NURSING ---
PT LEFT AT 1345 BY COT TO APPOINTMENT IN [place]. PT MOTHER WITH PT.
[2019-07-07 16:00] VITALS: BP 120/74; PULSE 66; RESP 18; O2SAT 99
--- NOTE | 2019-07-07 16:07 | NURSING ---
PT RETURNED FROM APPOINTMENT AT 1605 BY COT,MOTHER WITH PT.
--- NOTE | 2019-07-07 16:16 | NURSING ---
[facility] Dr Luciano at 1610. Pt returned with one suture to RT frontal lobe from removal of a white tube that was left in during previous surgery. No paperwork was sent back with pt on what was removed and when sutures can be removed. Called office and spoke with Kathie, she is going to fax an order for suture removal and report that states what was done at [facility]. awaiting fax.
--- NOTE | 2019-07-07 16:38 | NURSING ---
DRESSING AND INNER CANULA CHANGED AND DRESSING TO HEAD CHANGED WHEN PT ARRIVED BACK TO FLOOR. HELEN SAGE AWARE
[2019-07-07] MEDS: tiZANidine HCl 2 MG Tablet GT (21:44)
[2019-07-07] MEDS: MELATONIN 10 MG TABLET 5 MG PO (21:45)
[2019-07-08] MEDS: Jevity 1.5 1,000 ML 60 ML GT (01:53)
[2019-07-08] MEDS: Enoxaparin 40 MG/0.4 ML Syringe SC (06:41)
[2019-07-08] MEDS: Menthol/Lanolin/Calamine/Znox 113 GM Tube 1 APPLIC TOPICAL ×3 (06:41→22:32)
[2019-07-08] MEDS: Propranolol 10 MG Tablet 20 MG GT ×4 (06:41→21:50)
[2019-07-08] MEDS: Fluconazole Suspension 40 MG/ML 35 ML Bottle 200 MG GT (06:47)
[2019-07-08 07:22] VITALS: O2SAT 99
--- NOTE | 2019-07-08 07:26 | NURSING ---
Cleansed tracheostomy site using normal saline, and applied clean 4x4 guaze. Cleansed peg tube site area and replaced dressing. Pt tolerated well.
--- NOTE | 2019-07-08 09:10 | NS ---
May be appropriate to transition res to bolus feeds as pt tolerating TF - if bolus feeds warranted rec Jevity 1.5 240 cc with 200 cc H2O flush during waking hours (ie. 7a, 10a, 1p, 4p, 7p, 10p) to provide 2160 calories, 91.8 g protein, and 2294mL total fluid per day.
--- NOTE | 2019-07-08 09:17 | CASEMGMT ---
Social Work IDT met with patient and parents for care plan meeting. Discussed patient's progress in therapy. ST is seeing improvements with following one step commands, trialing ice chips and exercises, increased eye contact. Pt stood at the parallel bars for 3 mins twice, lifting legs, trialing SerraLift for transfers, but currently yuriy lift, biking on the NuStep, and wearing cervical collar for head control. Pt is private pay and [facility] Liaison assisting. Will continue to follow. LENORE Kimbrough
--- NOTE | 2019-07-08 11:01 | NURSING ---
spoke with DR Robles office, he wants speech to trial PMV (speaking valve). Edna, in speech therapy updated.
[2019-07-08] MEDS: Tuberculin,Purif.prot.deriv. 50 TU/ML Vial 5 ML ID (11:08)
[2019-07-08] MEDS: Acetaminophen 650 MG/20 ML UDC GT (11:09)
--- NOTE | 2019-07-08 12:00 | NURSING ---
spoke with sole stapler welt regarding boluses and times. ordering 360cc boluses 4 xday and 300cc flushes with each bolus
--- NOTE | 2019-07-08 14:20 | NURSING ---
Pt orders for Jevity changed. This nurse removed kangaroo pump and peg tube clamped.
[2019-07-08 16:00] VITALS: BP 102/63; PULSE 59; RESP 20; TEMP 36.7; O2SAT 97
--- NOTE | 2019-07-08 16:54 | CHAPLAIN ---
Type of Pastoral Visit ___ Initial Visit _x__ Follow-up Visit ___ On-call Visit ___ General Patient Visit ___ Spiritual Assessment ___ Family Conference ___ Bereavement ___ Rapid Response ___ Code Blue ___ Other (describe below) Pastoral Care Referral From ___ Patient _x__ Family ___ Nurse ___ Physician ___ Office Helper Clerical ___ Sow Farm Technician ___ Other (describe below) Sacrament/Intervention _x__ Active listening ___ Anointing ___ Orthodox ___ Bereavement ___ Communion ___ Nickie exploration ___ ___ Life review _x__ Prayer ___ Reconciliation ___ Sacrament of Sick _x__ Supportive presence ___ Wedding ___ Other (describe below) Pastoral Comments patient is sleeping but mother and sister are with him in the room; engaged in conversation for support and listening time with family members; prayer welcomed;
[2019-07-08] MEDS: Jevity 1.5. 1,000 ML Bottle 360 ML GT ×2 (18:05→22:12)
--- NOTE | 2019-07-08 18:33 | NURSING ---
300 cc flush given after Jevity bolus feeding. Tracheostomy site cleaned and dressing changed. Pt tolerated well.
[2019-07-08 21:25] VITALS: PULSE 80; RESP 16
[2019-07-08] MEDS: MELATONIN 10 MG TABLET 5 MG PO (21:51)
[2019-07-08] MEDS: tiZANidine HCl 2 MG Tablet GT (21:52)
[2019-07-09] MEDS: Propranolol 10 MG Tablet 20 MG GT ×4 (06:13→22:24)
[2019-07-09] MEDS: Fluconazole Suspension 40 MG/ML 35 ML Bottle 200 MG GT (06:14)
[2019-07-09] MEDS: Enoxaparin 40 MG/0.4 ML Syringe SC (06:15)
[2019-07-09] MEDS: Jevity 1.5. 1,000 ML Bottle 360 ML GT ×4 (06:18→22:29)
[2019-07-09] MEDS: Menthol/Lanolin/Calamine/Znox 113 GM Tube 1 APPLIC TOPICAL ×3 (06:21→22:42)
--- NOTE | 2019-07-09 06:29 | NURSING ---
Peg tube remains patent and no residual p. Peg placement verified by auscultation. HOB at 30 degree. Pt given 360cc of jevity 1.5 bolus and 300cc of sterile water flushed after bolus. All meds received via peg tube without difficulty. Pt tolerated well.
--- NOTE | 2019-07-09 11:23 | NURSING ---
DRESSING TO TRAK CLEANED AND CHANGED. CHANGED INTER CANNULA.
[2019-07-09] MEDS: Acetaminophen 650 MG/20 ML UDC GT ×2 (11:59→22:24)
[2019-07-09 14:30] VITALS: PULSE 82; RESP 16; O2SAT 95
[2019-07-09 16:00] VITALS: BP 119/63; PULSE 74; RESP 16; TEMP 37; O2SAT 98
--- NOTE | 2019-07-09 16:15 | NURSING ---
SPEECH THERAPY INTO WORK WITH PT TODAY WITH SPEAKING VALVE FOR 30 MINS. PT OXYGEN HELD AT 98%. SPEECH WILL TRIAL AGAIN TOMORROW AND WILL REPORT BACK.
[2019-07-09] MEDS: tiZANidine HCl 2 MG Tablet GT (22:24)
[2019-07-09] MEDS: MELATONIN 10 MG TABLET 5 MG PO (22:25)
--- NOTE | 2019-07-09 23:20 | NURSING ---
Went in to give patient tube feed. Patient has 0 residual and PEG tube placement confirmed with auscultation. Patient's head of bed elevated before tube feed given. Tube feed and flushes given as ordered. Patient with emesis. Patient's head of the bed remained elevated all the way at this time. Patient without anymore emesis. Lungs clear to auscultation. Patient resting peacefully. Will update Dr. Amaral.
[2019-07-10 06:03] LABS: Absolute Lymphocyte Count 1.58 X10^3/uL (0.83-4.51); Absolute Neutrophil Count 3.1 X10^3/uL (2.0-7.7); Basophil# 0.03 X10^3/uL; Basophil% 0.6 % (0-1); Eosinophil# 0.08 X10^3/uL; Eosinophils% 1.5 % (0-5); Hematocrit 36.4 % (40-54); Hemoglobin 11.4 g/dL (13.0-16.5); Lymphocyte # 1.58 X10^3/ul (4.0); Mean Corp Hgb Conc 31.3 g/dL (32-36); Mean Corpuscular Hgb 26.2 pg (27.0-32.0); Mean Corpuscular Volume 83.7 fL (80-94); Mean Platelet Vol. 11.1 fl (6.2-12.0); Monocyte# 0.45 X10^3/uL; Monocyte% 8.6 % (0-10); NRBC Flagged by Analyzer 0 % (0-5); Neutrophil # 3.11 X10^3/uL (2.7-7.7); Neutrophil % 59.1 % (47-70); Platelet Count 169 K/mm3 (150-450); RBC Distribution Width CV 14.4 % (11.6-14.6); RBC Distribution Width SD 44.1 fl (35.1-43.9); Red Blood Count 4.35 M/mm3 (4.6-6.2); White Blood Count 5.3 K/mm3 (4.4-11.0)
[2019-07-10 06:28] LABS: Anion Gap 5 (5-15); BUN 13 mg/dL (7-18); BUN/Creat Ratio 18.2 RATIO (10-20); Calcium,Total 9.5 mg/dL (8.5-10.1); Chloride 101 mmol/L (98-107); Creatinine, Serum 0.71 mg/dL (0.70-1.30); EST Glomerular Filtration Rate 148 mL/min (>60); Est Glom Filt Rate - Afr Amer 179 mL/min (>60); Estimated Creatinine Clearance 150.33 ml/min; Glucose 95 mg/dL (74-106); Phosphorus 4.7 mg/dL (2.5-4.9); Potassium 4.5 mmol/L (3.5-5.1); Sodium Level 138 mmol/L (136-145)
[2019-07-10] MEDS: Fluconazole Suspension 40 MG/ML 35 ML Bottle 200 MG GT (06:31)
[2019-07-10] MEDS: Enoxaparin 40 MG/0.4 ML Syringe SC (06:31)
[2019-07-10] MEDS: Propranolol 10 MG Tablet 20 MG GT ×4 (06:32→22:45)
[2019-07-10] MEDS: Jevity 1.5. 1,000 ML Bottle 360 ML GT ×3 (06:42→18:05)
[2019-07-10] MEDS: Menthol/Lanolin/Calamine/Znox 113 GM Tube 1 APPLIC TOPICAL ×3 (06:55→21:55)
--- NOTE | 2019-07-10 08:11 | RAD_ITS ---
STUDY: X-RAY - ABDOMEN/PELVIS REASON FOR EXAM: Male, 19 years old. NAUSEA/VOMITING TECHNIQUE: Single AP view of the abdomen / pelvis. COMPARISON: None. FINDINGS: Normal visualized lung bases. There is an unremarkable bowel gas pattern. Gastrostomy tube is in situ. The visualized liver, spleen and kidneys are grossly normal in size and morphology. Normal soft tissue structures. Normal visualized osseous structures. RAD/Abdomen Single View IMPRESSION: A gastrostomy tube is seen within the distal stomach. Electronically Signed: Sorin Ferrer, at 10:39 EST , Service support ,
--- NOTE | 2019-07-10 08:31 | MDS.RN ---
Information for the mds was obtained from review of the clinical record, interview of resident, staff, and direct observation of resident's care.
[2019-07-10 13:07] LABS: Mucous, Urine 0 SEEN /hpf (<or=2+); Red Blood Cells-Urine 0 SEEN /hpf (0-5)
[2019-07-10 13:12] LABS: Color, Urine Straw (Yellow); Glucose, Dipstick Normal (Normal); Ketone-Dipstick Negative (Negative); Leukocyte Esterase-Dipstick Negative /ul (Negative); Nitrite-Dipstick Negative (Negative); Occult Blood-Urine Negative /ul (Negative); Protein-Dipstick Negative (Negative); Specific Gravity, Urine 1.015 (1.002-1.030); Urine Bilirubin Dipstick Negative (Negative); Urine Clarity Cloudy (Clear); Urine Urobilinogen Normal (Normal)
[2019-07-10 13:55] LABS: Amorphous Sediment 4+; Bacteria 3+ /hpf (None Seen); Squamous Epithelial Cells - UA 0-5 SEEN /hpf (0-5); White Blood Cells 0-5 SEEN /hpf (0-5)
[2019-07-10 14:10] VITALS: O2SAT 93
[2019-07-10 16:00] VITALS: BP 118/71; PULSE 79; RESP 17; TEMP 36.9; O2SAT 96
[2019-07-10] MEDS: NYSTATIN 500,000 UNIT/5 ML UDC 500000 UNIT PO ×2 (18:05→22:45)
[2019-07-10] MEDS: MELATONIN 10 MG TABLET 5 MG PO (22:45)
[2019-07-10] MEDS: tiZANidine HCl 2 MG Tablet GT (22:45)
--- NOTE | 2019-07-10 23:04 | NURSING ---
2300- PEG residual 130mL prior to tonight's dose of jevity and water flush. Residual returned and scheduled medications given. Dr. Amaral notified and new orders received to hold tonight's dose of Jevity and water flush and to recheck residual prior to next scheduled feed. Bedside nurse, Kadi notified.
[2019-07-10 23:08] VITALS: O2SAT 96
--- NOTE | 2019-07-10 23:18 | NURSING ---
Pt with 130cc of residual this evening. Dr Amaral notified. N.O. to hold Jevity bolus and 300cc sterile water flush this evening and reassess residual in morning.
[2019-07-11] MEDS: Acetaminophen 650 MG/20 ML UDC GT ×2 (02:39→22:06)
[2019-07-11] MEDS: Menthol/Lanolin/Calamine/Znox 113 GM Tube 1 APPLIC TOPICAL ×3 (06:14→21:51)
[2019-07-11] MEDS: Propranolol 10 MG Tablet 20 MG GT ×4 (06:23→22:06)
[2019-07-11] MEDS: Jevity 1.5. 1,000 ML Bottle 360 ML GT ×3 (06:23→18:26)
[2019-07-11] MEDS: NYSTATIN 500,000 UNIT/5 ML UDC 500000 UNIT PO ×4 (06:24→22:06)
[2019-07-11] MEDS: Enoxaparin 40 MG/0.4 ML Syringe SC (06:24)
[2019-07-11 09:30] VITALS: PULSE 75; RESP 18; O2SAT 99
[2019-07-11 10:55] VITALS: O2SAT 96
[2019-07-11 13:20] VITALS: O2SAT 96
[2019-07-11 16:00] VITALS: BP 119/65; PULSE 78; RESP 17; TEMP 36.7; O2SAT 96
--- NOTE | 2019-07-11 18:47 | NURSING ---
0 RESIDUAL, 360 TUBE FEED,300 FLUSH HEAD OF BED 30 DEGREES. PT TOLERATED WELL.
[2019-07-11] MEDS: Nystatin Powder 15gm Bottle 1 APPLIC TOPICAL (21:52)
[2019-07-11] MEDS: MELATONIN 10 MG TABLET 5 MG PO (22:07)
[2019-07-11] MEDS: tiZANidine HCl 2 MG Tablet GT (22:07)
[2019-07-12] MEDS: NYSTATIN 500,000 UNIT/5 ML UDC 500000 UNIT PO ×4 (05:52→22:11)
[2019-07-12] MEDS: Enoxaparin 40 MG/0.4 ML Syringe SC (05:52)
[2019-07-12] MEDS: Propranolol 10 MG Tablet 20 MG GT ×4 (05:52→22:10)
[2019-07-12] MEDS: Acetaminophen 650 MG/20 ML UDC GT ×2 (05:53→22:12)
[2019-07-12] MEDS: Nystatin Powder 15gm Bottle 1 APPLIC TOPICAL ×2 (05:58→22:06)
[2019-07-12] MEDS: Menthol/Lanolin/Calamine/Znox 113 GM Tube 1 APPLIC TOPICAL ×3 (05:58→22:07)
[2019-07-12] MEDS: Jevity 1.5. 1,000 ML Bottle 360 ML GT ×4 (05:58→22:07)
--- NOTE | 2019-07-12 06:31 | NURSING ---
Per family pt swung both legs out of the bed during the middle of the night and had done it a couple of nights ago also. PA applied and staffing to switch bed to [facility] [place] for safety.
--- NOTE | 2019-07-12 06:41 | NURSING ---
family reports they woke up this am and pt had both legs dangling over the bed, this is the 2nd time in the last few days this has happened but the first time they have reported it to staff. repositioned pt and notified tcu rn for other safety measures for pt to prevent falling.
--- NOTE | 2019-07-12 11:47 | NURSING ---
PT SITTING UP IN RECLINER. 0 RESIDUAL,360 JEVITY 1.5, 300 FLUSH WITH MEDS. PT TOLERATED WELL. PARENTS IN ROOM.
--- NOTE | 2019-07-12 14:35 | NURSING ---
Kavin, RT attempted to cap trach but pt began having trouble with stridor like respirations. pt on Rm air, sat 96%.
[2019-07-12 15:12] VITALS: BP 109/63; PULSE 71; RESP 19; TEMP 37; O2SAT 96
--- NOTE | 2019-07-12 15:37 | CPS ---
Placed Resident on trach cap,tolerated poorly.Became stridorus,accessory muscle usage noted. Removed cap. Resident respirations returned to normal. RN aware.
--- NOTE | 2019-07-12 17:56 | NURSING ---
pt in bed,30 degrees. placement verified,0 residual, 360 jevity 1.5, flush 300. pt tolerated well.
[2019-07-12] MEDS: tiZANidine HCl 2 MG Tablet GT (22:13)
[2019-07-12] MEDS: MELATONIN 10 MG TABLET 5 MG PO (22:13)
[2019-07-12 22:17] VITALS: PULSE 56; RESP 16; O2SAT 98
[2019-07-13] MEDS: Enoxaparin 40 MG/0.4 ML Syringe SC (06:04)
[2019-07-13] MEDS: Propranolol 10 MG Tablet 20 MG GT ×4 (06:04→22:04)
[2019-07-13] MEDS: Menthol/Lanolin/Calamine/Znox 113 GM Tube 1 APPLIC TOPICAL ×3 (06:04→22:28)
[2019-07-13] MEDS: NYSTATIN 500,000 UNIT/5 ML UDC 500000 UNIT PO ×4 (06:04→22:05)
[2019-07-13] MEDS: Nystatin Powder 15gm Bottle 1 APPLIC TOPICAL ×2 (06:16→22:29)
[2019-07-13] MEDS: Jevity 1.5. 1,000 ML Bottle 360 ML GT ×4 (06:19→22:19)
[2019-07-13 08:12] VITALS: O2SAT 99
[2019-07-13 10:00] VITALS: O2SAT 98
[2019-07-13 16:00] VITALS: BP 106/54; PULSE 57; RESP 16; TEMP 36.7; O2SAT 100
[2019-07-13] MEDS: tiZANidine HCl 2 MG Tablet GT (22:04)
[2019-07-13] MEDS: MELATONIN 10 MG TABLET 5 MG PO (22:04)
[2019-07-13] MEDS: Acetaminophen 650 MG/20 ML UDC GT (22:28)
[2019-07-13 22:48] VITALS: O2SAT 98
--- NOTE | 2019-07-14 00:07 | NURSING ---
22:20 pm Pt HOB elevated at 30 degrees, no residual verified placement, given medication as ordered. Removed inner cannula and cleansed tracheostomy area and applied new dressing. Peg tube area cleansed and dressing also changed tonight. Small drainage amount brown colored, and no odor noted during this time.
[2019-07-14] MEDS: Propranolol 10 MG Tablet 20 MG GT ×4 (05:45→21:36)
[2019-07-14] MEDS: Menthol/Lanolin/Calamine/Znox 113 GM Tube 1 APPLIC TOPICAL ×3 (05:46→21:39)
[2019-07-14] MEDS: Enoxaparin 40 MG/0.4 ML Syringe SC (06:05)
[2019-07-14] MEDS: Jevity 1.5. 1,000 ML Bottle 360 ML GT ×4 (06:08→21:39)
[2019-07-14] MEDS: Nystatin Powder 15gm Bottle 1 APPLIC TOPICAL ×2 (06:08→21:38)
[2019-07-14] MEDS: NYSTATIN 500,000 UNIT/5 ML UDC 500000 UNIT PO ×4 (06:10→21:36)
[2019-07-14 08:27] VITALS: O2SAT 99
--- NOTE | 2019-07-14 11:46 | NURSING ---
inner cannula changed, stoma cleaned and dried. Peg tube area cleaned/dried and change dressing, 25 ml residual before noon feed, Pt sitting in recliner, helmet and soft collar in place, family members in place, nystatin s/s painted to tongue, pt was receptive with care
[2019-07-14] MEDS: Acetaminophen 650 MG/20 ML UDC GT (11:55)
[2019-07-14 15:55] VITALS: BP 105/62; PULSE 60; RESP 20; TEMP 36.7; O2SAT 97
[2019-07-14] MEDS: MELATONIN 10 MG TABLET 5 MG PO (21:36)
[2019-07-14] MEDS: tiZANidine HCl 2 MG Tablet GT (21:39)
[2019-07-15] MEDS: NYSTATIN 500,000 UNIT/5 ML UDC 500000 UNIT PO ×4 (06:23→22:46)
[2019-07-15] MEDS: Enoxaparin 40 MG/0.4 ML Syringe SC (06:23)
[2019-07-15] MEDS: Propranolol 10 MG Tablet 20 MG GT ×4 (06:23→22:45)
[2019-07-15] MEDS: Menthol/Lanolin/Calamine/Znox 113 GM Tube 1 APPLIC TOPICAL ×3 (06:31→22:46)
[2019-07-15] MEDS: Jevity 1.5. 1,000 ML Bottle 360 ML GT ×4 (06:31→22:46)
[2019-07-15] MEDS: Nystatin Powder 15gm Bottle 1 APPLIC TOPICAL ×2 (06:47→22:47)
[2019-07-15 07:46] VITALS: O2SAT 98
[2019-07-15 10:00] VITALS: PULSE 66; RESP 16; O2SAT 98
--- NOTE | 2019-07-15 11:00 | NURSING ---
Pt trach care done by this nurse. Dressing and inner cannula changes. Pt tolerated well.
--- NOTE | 2019-07-15 11:25 | NURSING ---
Addendum entered by Lisa Hallman 07/15/19 12:30: Pt doing well w/capping of trach, continues to sat 97-98% on RA, staff in doing incont care. Family at bedside. Original Note: Johanna RT assisted this nurse with capping trach. Pt tolerating well sat 97-98% on RA, no stridor. much encouragement to explain to have pt breathe thru nose or mouth to assist with respirations. Mother and father at side communicating this with son/patient. Will continue to monitor.
[2019-07-15 15:35] VITALS: BP 134/72; PULSE 88; RESP 19; TEMP 36.1; O2SAT 95
[2019-07-15] MEDS: Acetaminophen 650 MG/20 ML UDC GT (16:46)
--- NOTE | 2019-07-15 18:04 | NURSING ---
pt remains capped, doing well. able to cough up secretions but not able to spit it out, suctioned with yankur at times. sat 96-98%, no resp distress noted. mother and father at bedside. sitting in recliner chair.
[2019-07-15] MEDS: tiZANidine HCl 2 MG Tablet GT (20:00)
[2019-07-15] MEDS: MELATONIN 10 MG TABLET 5 MG PO (22:45)
[2019-07-16] MEDS: Menthol/Lanolin/Calamine/Znox 113 GM Tube 1 APPLIC TOPICAL ×3 (06:31→22:10)
[2019-07-16] MEDS: Propranolol 10 MG Tablet 20 MG GT ×4 (06:31→22:20)
[2019-07-16] MEDS: Jevity 1.5. 1,000 ML Bottle 360 ML GT ×4 (06:32→22:12)
[2019-07-16] MEDS: NYSTATIN 500,000 UNIT/5 ML UDC 500000 UNIT PO ×4 (06:32→22:09)
[2019-07-16] MEDS: Nystatin Powder 15gm Bottle 1 APPLIC TOPICAL ×2 (06:32→22:11)
[2019-07-16] MEDS: Enoxaparin 40 MG/0.4 ML Syringe SC (06:34)
--- NOTE | 2019-07-16 09:46 | NURSING ---
PER SPEECH THERAPY,PT DEANNE WATER PROTOCOL. TEASPOON SIPS OF WATER OR ICE CHIPS. STAFF AND OK FOR FAMILY TO DO. MOUTH CARE ALSO TO BE GIVEN. REPORTED TO HELEN RODRIGUEZ
--- NOTE | 2019-07-16 10:30 | NS ---
Rec increase bolus feeds to 360 cc 4x/day (0600, 1200, 1800, 2400) with 300 cc flush after each feeding to provide ~ 2160 seda, 91.8 gm pro, 2294 cc free water per day and better meet res est nutritional needs.
--- NOTE | 2019-07-16 12:44 | NURSING ---
PT INTER CANNULA CHANGED, SITE CLEANED AND NEW DRESSING APPLIED. MOUTH CARE DONE, PEG PLACEMENT VERIFIED,0 RESIDUAL. 360 ML OF JEVITY 1.5, AND FLUSHED WITH 300 ML OF STERIL WATER. HEAD OF BED 30 DEGREES. PT TOLERATED WELL,PT FAMILY IN ROOM.
[2019-07-16 16:00] VITALS: BP 120/82; PULSE 81; RESP 18; TEMP 36.8; O2SAT 94
--- NOTE | 2019-07-16 18:11 | NURSING ---
THIS NURSE SUCTIONED TRAK OUT,MODERATE/THICK/CREAMY IN COLOR. VERIFIED PEG PLACEMENT,0 RESIDUAL. HEAD OF BED 30 DEGREES, JEVITY 1.5 360ML,FLUSH WITH STERIL WATER 300ML WITH MEDS. PT MOTHER DID MOUTH CARE AT BED SIDE. PT TOLERATED WELL.
[2019-07-16 21:40] VITALS: O2SAT 98
[2019-07-16] MEDS: tiZANidine HCl 2 MG Tablet GT (22:09)
[2019-07-16] MEDS: MELATONIN 10 MG TABLET 5 MG PO (22:10)
[2019-07-16 22:20] VITALS: BP 126/68; PULSE 71; O2SAT 99
[2019-07-17 05:54] VITALS: PULSE 67; RESP 18; O2SAT 98
[2019-07-17] MEDS: Menthol/Lanolin/Calamine/Znox 113 GM Tube 1 APPLIC TOPICAL ×3 (05:58→22:41)
[2019-07-17] MEDS: Nystatin Powder 15gm Bottle 1 APPLIC TOPICAL ×2 (05:59→22:42)
[2019-07-17] MEDS: Enoxaparin 40 MG/0.4 ML Syringe SC (06:00)
[2019-07-17 06:05] LABS: Absolute Lymphocyte Count 1.75 X10^3/uL (0.83-4.51); Absolute Neutrophil Count 2.8 X10^3/uL (2.0-7.7); Basophil# 0.03 X10^3/uL; Basophil% 0.5 % (0-1); Eosinophil# 0.18 X10^3/uL; Eosinophils% 3.3 % (0-5); Hematocrit 35.7 % (40-54); Hemoglobin 11.4 g/dL (13.0-16.5); Lymphocyte # 1.75 X10^3/ul (4.0); Lymphocyte % 32.1 % (19-41); Mean Corp Hgb Conc 31.9 g/dL (32-36); Mean Corpuscular Hgb 26.4 pg (27.0-32.0); Mean Corpuscular Volume 82.6 fL (80-94); Mean Platelet Vol. 10.6 fl (6.2-12.0); Monocyte# 0.69 X10^3/uL; Monocyte% 12.6 % (0-10); NRBC Flagged by Analyzer 0 % (0-5); Neutrophil % 51.3 % (47-70); Platelet Count 236 K/mm3 (150-450); RBC Distribution Width CV 14.6 % (11.6-14.6); RBC Distribution Width SD 43.7 fl (35.1-43.9); Red Blood Count 4.32 M/mm3 (4.6-6.2); White Blood Count 5.5 K/mm3 (4.4-11.0)
[2019-07-17 06:21] LABS: Anion Gap 8 (5-15); BUN 12 mg/dL (7-18); BUN/Creat Ratio 18.6 RATIO (10-20); Calcium,Total 9.5 mg/dL (8.5-10.1); Chloride 102 mmol/L (98-107); Creatinine, Serum 0.64 mg/dL (0.70-1.30); EST Glomerular Filtration Rate 166 mL/min (>60); Est Glom Filt Rate - Afr Amer 201 mL/min (>60); Estimated Creatinine Clearance 169.41 ml/min; Glucose 98 mg/dL (74-106); Magnesium 1.9 mg/dL (1.6-2.6); Phosphorus 5.3 mg/dL (2.5-4.9); Sodium Level 139 mmol/L (136-145)
[2019-07-17] MEDS: Jevity 1.5. 1,000 ML Bottle 360 ML GT ×4 (06:45→22:33)
[2019-07-17] MEDS: NYSTATIN 500,000 UNIT/5 ML UDC 500000 UNIT PO ×3 (06:45→18:34)
[2019-07-17] MEDS: Propranolol 10 MG Tablet 20 MG GT ×4 (06:46→22:32)
[2019-07-17 08:10] VITALS: O2SAT 98
[2019-07-17] MEDS: Acetaminophen 650 MG/20 ML UDC GT ×2 (08:50→22:40)
[2019-07-17 09:30] VITALS: PULSE 71; RESP 18; O2SAT 97
--- NOTE | 2019-07-17 12:01 | NURSING ---
pt up 30 degrees, mouth care done. peg tube verified, 0 residual. jevity 1.5 360ml and flush sterile water 300ml with med. pt tolerated well.
--- NOTE | 2019-07-17 12:04 | NURSING ---
AT 9AM PT GIVEN TYLENOL BY PEG TUBE. 1O RESIDUAL,60 FLUSH WITH STERILE WATER. SUCTIONED TRAK, VERY LITTLE SPUTUM. CHANGED INTER CANNULA AND CLEANED AND NEW DRESSING TO TRAK SITE. PT TOLERATED WELL.
[2019-07-17 16:00] VITALS: BP 105/62; PULSE 76; RESP 16; TEMP 37.1; O2SAT 98
--- NOTE | 2019-07-17 18:54 | NURSING ---
Addendum entered by Ralph Capellan 07/17/19 19:01: HEAD OF BED 30 DEGREES Original Note: PEG PLACEMENT VERIFIED,0 RESIDUAL. BOLUS OF JEVITY 1.5 360ML AND FLUSH 300ML OF STERILE WATER GIVEN. PT TOLERATED WELL. FAMILY IN ROOM.
[2019-07-17 22:31] VITALS: PULSE 80; O2SAT 97
[2019-07-17] MEDS: tiZANidine HCl 2 MG Tablet GT (22:32)
[2019-07-17] MEDS: MELATONIN 10 MG TABLET 5 MG PO (22:32)
[2019-07-17 23:20] VITALS: O2SAT 99
[2019-07-18] MEDS: Menthol/Lanolin/Calamine/Znox 113 GM Tube 1 APPLIC TOPICAL ×3 (06:17→22:17)
[2019-07-18] MEDS: Nystatin Powder 15gm Bottle 1 APPLIC TOPICAL ×2 (06:18→22:19)
[2019-07-18] MEDS: Enoxaparin 40 MG/0.4 ML Syringe SC (06:20)
[2019-07-18 06:24] VITALS: PULSE 58; O2SAT 99
[2019-07-18] MEDS: Jevity 1.5. 1,000 ML Bottle 360 ML GT ×4 (06:25→22:17)
[2019-07-18] MEDS: Propranolol 10 MG Tablet 20 MG GT ×4 (06:25→22:17)
[2019-07-18 07:43] VITALS: O2SAT 100
[2019-07-18] MEDS: Acetaminophen 650 MG/20 ML UDC GT (12:24)
[2019-07-18 16:00] VITALS: BP 118/68; PULSE 91; RESP 24; TEMP 36.4; O2SAT 95
[2019-07-18 21:07] VITALS: O2SAT 98
[2019-07-18] MEDS: tiZANidine HCl 2 MG Tablet GT (22:17)
[2019-07-18] MEDS: MELATONIN 10 MG TABLET 5 MG PO (22:18)
[2019-07-18 23:04] VITALS: RESP 18; O2SAT 95
[2019-07-19] MEDS: Enoxaparin 40 MG/0.4 ML Syringe SC (05:07)
[2019-07-19] MEDS: Nystatin Powder 15gm Bottle 1 APPLIC TOPICAL ×2 (05:08→23:02)
[2019-07-19] MEDS: Menthol/Lanolin/Calamine/Znox 113 GM Tube 1 APPLIC TOPICAL ×3 (05:08→20:37)
[2019-07-19] MEDS: Jevity 1.5. 1,000 ML Bottle 360 ML GT ×4 (06:49→23:02)
[2019-07-19] MEDS: Propranolol 10 MG Tablet 20 MG GT ×4 (06:49→23:01)
[2019-07-19 07:51] VITALS: O2SAT 99
[2019-07-19 10:00] VITALS: PULSE 76; RESP 18; O2SAT 97
[2019-07-19 15:32] VITALS: BP 112/67; PULSE 92; RESP 18; TEMP 36.9; O2SAT 95
[2019-07-19] MEDS: Acetaminophen 650 MG/20 ML UDC GT (18:15)
--- NOTE | 2019-07-19 20:24 | CPS ---
Pt uncapped and cool aerosol put on at 1855, 28%.
[2019-07-19] MEDS: tiZANidine HCl 2 MG Tablet GT (20:29)
[2019-07-19] MEDS: MELATONIN 10 MG TABLET 5 MG PO (23:01)
[2019-07-20] MEDS: Jevity 1.5. 1,000 ML Bottle 360 ML GT ×4 (06:57→22:16)
[2019-07-20] MEDS: Propranolol 10 MG Tablet 20 MG GT ×4 (06:57→22:02)
[2019-07-20] MEDS: Menthol/Lanolin/Calamine/Znox 113 GM Tube 1 APPLIC TOPICAL ×3 (06:57→21:57)
[2019-07-20] MEDS: Enoxaparin 40 MG/0.4 ML Syringe SC (06:58)
[2019-07-20] MEDS: Nystatin Powder 15gm Bottle 1 APPLIC TOPICAL ×2 (06:58→21:57)
--- NOTE | 2019-07-20 08:12 | CPS ---
Pt. was placed on Trach Cap trial this morning. Was showing slight signs of discomfort/distress after initial capping. Family said that pt. sometimes gets nervous when cap is initially put on. MIDDLE SCHOOL SPORTS COACH allowed patient to trial for 30 mins under observation by this MIDDLE SCHOOL SPORTS COACH. After this time, pt. was still showing signs of distress. Including tachypnea,ins/ex wheezes, and audible increased WOB. Results were explained to family and pt. was placed back on cool aerosol by trach for the time being. Will try patient on cap trial later in the day if tolerated.
[2019-07-20 10:00] VITALS: PULSE 72; RESP 14
--- NOTE | 2019-07-20 14:10 | NURSING ---
Trach and dressing changed and cleaned around trach. pt tolerated well.
[2019-07-20 16:00] VITALS: BP 114/48; PULSE 70; RESP 18; TEMP 36.4; O2SAT 97
[2019-07-20] MEDS: MELATONIN 10 MG TABLET 5 MG PO (22:02)
[2019-07-20] MEDS: tiZANidine HCl 2 MG Tablet GT (22:03)
[2019-07-21] MEDS: Jevity 1.5. 1,000 ML Bottle 360 ML GT ×4 (07:07→22:44)
[2019-07-21] MEDS: Enoxaparin 40 MG/0.4 ML Syringe SC (07:08)
[2019-07-21] MEDS: Propranolol 10 MG Tablet 20 MG GT ×4 (07:08→22:35)
[2019-07-21] MEDS: Nystatin Powder 15gm Bottle 1 APPLIC TOPICAL ×2 (07:19→22:37)
[2019-07-21] MEDS: Menthol/Lanolin/Calamine/Znox 113 GM Tube 1 APPLIC TOPICAL ×3 (07:20→22:36)
[2019-07-21 10:00] VITALS: PULSE 74; RESP 16
[2019-07-21] MEDS: Acetaminophen 650 MG/20 ML UDC GT (11:39)
--- NOTE | 2019-07-21 15:03 | NURSING ---
Inner canula and dressing to trach changed. Cleaned around site, then recapped.
[2019-07-21 16:00] VITALS: BP 112/59; PULSE 65; RESP 17; TEMP 37; O2SAT 97
--- NOTE | 2019-07-21 16:38 | NURSING ---
Mother up at desk asking about when trach would be removed or how long until it can be removed. attempted to call Dr Robles's office for appt but closed. Will contact him on after the New Year. Mother verbalized understanding.
[2019-07-21] MEDS: MELATONIN 10 MG TABLET 5 MG PO (22:35)
[2019-07-21] MEDS: tiZANidine HCl 2 MG Tablet GT (22:35)
[2019-07-22] MEDS: Jevity 1.5. 1,000 ML Bottle 360 ML GT ×4 (06:44→22:07)
[2019-07-22] MEDS: Propranolol 10 MG Tablet 20 MG GT ×3 (06:45→22:05)
[2019-07-22] MEDS: Nystatin Powder 15gm Bottle 1 APPLIC TOPICAL ×2 (06:50→22:07)
[2019-07-22] MEDS: Menthol/Lanolin/Calamine/Znox 113 GM Tube 1 APPLIC TOPICAL ×3 (06:50→22:06)
[2019-07-22] MEDS: Enoxaparin 40 MG/0.4 ML Syringe SC (06:51)
--- NOTE | 2019-07-22 07:41 | NURSING ---
Peg tube remains patent and no residual during this time. Peg placement verified by auscultation. HOB at 30 degree. Pt given 360cc of jevity 1.5 bolus and 300cc of sterile water flushed after bolus. All meds received via peg tube without difficulty. Pt tolerated well.
--- NOTE | 2019-07-22 09:00 | NURSING ---
Per previous shift, pts family concerned with pts bp and propanolol. Dr. Amaral aware and new order to decrease propanolol to TID. Will update pts family.
[2019-07-22 13:15] VITALS: BP 123/70; PULSE 80; RESP 22; O2SAT 95
[2019-07-22 15:35] VITALS: BP 112/72; PULSE 93; RESP 20; TEMP 36.8; O2SAT 97
[2019-07-22 21:50] VITALS: PULSE 76; O2SAT 97
[2019-07-22] MEDS: tiZANidine HCl 2 MG Tablet GT (22:06)
[2019-07-22] MEDS: MELATONIN 10 MG TABLET 5 MG PO (22:07)
[2019-07-22 22:37] VITALS: O2SAT 99
[2019-07-23] MEDS: Enoxaparin 40 MG/0.4 ML Syringe SC (06:36)
[2019-07-23] MEDS: Nystatin Powder 15gm Bottle 1 APPLIC TOPICAL ×2 (06:36→22:04)
[2019-07-23] MEDS: Jevity 1.5. 1,000 ML Bottle 360 ML GT ×4 (06:36→21:53)
[2019-07-23] MEDS: Propranolol 10 MG Tablet 20 MG GT ×3 (06:37→21:43)
[2019-07-23] MEDS: Menthol/Lanolin/Calamine/Znox 113 GM Tube 1 APPLIC TOPICAL ×3 (06:37→22:03)
--- NOTE | 2019-07-23 09:34 | NURSING ---
Dr Apple office notified of consult order for possible trach removal. pt tolerating capping during day. updated family on consult.
--- NOTE | 2019-07-23 12:26 | NURSING ---
Addendum entered by Lisa Hallman 07/23/19 16:24: Cap was replaced in approx 1 minute after pt expelled sputum Original Note: During administering of PEG tube feeding, pt was trialing yogurt for speech therapist. This nurse left room & approx [address] came out to let staff know pt had vomited up tube feed. Lungs clear A&P but some wheezing noted. Cap removed from trach and pt able to cough out sputum. sat 99% on RA. Will update Dr Amaral.
[2019-07-23] MEDS: Acetaminophen 650 MG/20 ML UDC GT (15:10)
[2019-07-23 15:19] VITALS: BP 122/82; PULSE 73; RESP 20; TEMP 36.4; O2SAT 99
--- NOTE | 2019-07-23 17:40 | NURSING ---
Sat 97% on RA, lungs w/expiratory wheezing T/O, Faint crackles/coarseness RLL, HOB elevated 30 degrees. family at bedside, updated Dr Amaral, new order for chest xray in AM. Will conintue to monitor. pt able to cough up some secretions in mouth and then swallows. Pt was able to blow his nose with assist of his Aunt holding tissue. resting in bed, call light in reach. Family updated on xray in AM
[2019-07-23] MEDS: tiZANidine HCl 2 MG Tablet GT (21:43)
[2019-07-23] MEDS: MELATONIN 10 MG TABLET 5 MG PO (21:44)
[2019-07-23 22:06] VITALS: BP 123/70; PULSE 89; O2SAT 95
[2019-07-24 03:13] VITALS: PULSE 83; O2SAT 94
[2019-07-24] MEDS: Nystatin Powder 15gm Bottle 1 APPLIC TOPICAL ×2 (06:05→21:23)
[2019-07-24] MEDS: Menthol/Lanolin/Calamine/Znox 113 GM Tube 1 APPLIC TOPICAL ×3 (06:07→21:23)
[2019-07-24 06:08] VITALS: BP 104/57; PULSE 82; O2SAT 97
[2019-07-24] MEDS: Jevity 1.5. 1,000 ML Bottle 360 ML GT ×4 (06:10→21:34)
[2019-07-24] MEDS: Propranolol 10 MG Tablet 20 MG GT ×3 (06:13→21:13)
[2019-07-24] MEDS: Enoxaparin 40 MG/0.4 ML Syringe SC (06:21)
--- NOTE | 2019-07-24 08:00 | RAD_ITS ---
STUDY: X-RAY CHEST REASON FOR EXAM: Male, 19 years old. COUGH, EMESIS TECHNIQUE: PA and lateral views of the chest. COMPARISON: June 03, 2019. FINDINGS: The tracheostomy tube tip terminates 3.5 cm proximal to the jamarcus. There is no pneumothorax. There is no pleural effusion. The lungs are clear and expanded. Normal size heart. There is no demonstrated mediastinal lymphadenopathy or mediastinal mass lesion. Normal visualized pulmonary arteries. Normal visualized aortic arch and descending thoracic aorta. Normal visualized thoracic spine. Normal visualized ribs, clavicles, and shoulders. There is no demonstrated abnormality of the visualized soft tissue structures of the upper abdomen. RAD/Chest PA and Lateral IMPRESSION: No evident acute cardiopulmonary disease. Electronically Signed: Yair Garcia MD at 11:35 EST , Service support ,
[2019-07-24 11:05] VITALS: O2SAT 98
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
[2019-07-24 14:21] VITALS: BP 124/78; PULSE 66; RESP 18; TEMP 36.9; O2SAT 97
[2019-07-24 15:16] VITALS: PULSE 86; RESP 18; O2SAT 99
[2019-07-24 21:10] VITALS: BP 129/72; PULSE 78; O2SAT 98
[2019-07-24] MEDS: Acetaminophen 650 MG/20 ML UDC GT (21:13)
[2019-07-24] MEDS: MELATONIN 10 MG TABLET 5 MG PO (21:13)
[2019-07-24] MEDS: tiZANidine HCl 2 MG Tablet GT (21:13)
[2019-07-25 05:44] VITALS: BP 124/63; PULSE 85
[2019-07-25] MEDS: Enoxaparin 40 MG/0.4 ML Syringe SC (05:45)
[2019-07-25] MEDS: Propranolol 10 MG Tablet 20 MG GT ×3 (05:45→21:32)
[2019-07-25] MEDS: Jevity 1.5. 1,000 ML Bottle 360 ML GT ×4 (05:48→21:32)
[2019-07-25] MEDS: Menthol/Lanolin/Calamine/Znox 113 GM Tube 1 APPLIC TOPICAL ×3 (05:59→21:33)
[2019-07-25] MEDS: Nystatin Powder 15gm Bottle 1 APPLIC TOPICAL ×2 (05:59→21:33)
[2019-07-25 13:30] VITALS: O2SAT 97
--- NOTE | 2019-07-25 15:25 | NURSING ---
Peg site and Trach site cleaned and new dressing applied. Innercanula changed, patient produced large amount mucus.
[2019-07-25 15:43] VITALS: BP 131/76; PULSE 103; RESP 19; TEMP 37.1; O2SAT 97
[2019-07-25] MEDS: tiZANidine HCl 2 MG Tablet GT (21:31)
[2019-07-25] MEDS: MELATONIN 10 MG TABLET 5 MG PO (21:31)
--- NOTE | 2019-07-25 23:32 | CPS ---
Pt's mother stated her son's trach has been capped the past couple of nights and she wanted to leave his trach capped tonight.
[2019-07-26] MEDS: Enoxaparin 40 MG/0.4 ML Syringe SC (06:30)
[2019-07-26] MEDS: Jevity 1.5. 1,000 ML Bottle 360 ML GT ×4 (06:30→21:33)
[2019-07-26] MEDS: Menthol/Lanolin/Calamine/Znox 113 GM Tube 1 APPLIC TOPICAL ×3 (06:31→21:34)
[2019-07-26] MEDS: Propranolol 10 MG Tablet 20 MG GT ×3 (06:31→21:32)
[2019-07-26] MEDS: Nystatin Powder 15gm Bottle 1 APPLIC TOPICAL ×2 (06:32→21:34)
[2019-07-26 10:00] VITALS: PULSE 79; RESP 16; O2SAT 96
[2019-07-26 11:00] VITALS: O2SAT 98
[2019-07-26 15:10] VITALS: BP 124/68; PULSE 90; RESP 20; TEMP 37; O2SAT 97
--- NOTE | 2019-07-26 18:40 | NURSING ---
Trach cleaned, dressing and inner canula changed.
[2019-07-26] MEDS: MELATONIN 10 MG TABLET 5 MG PO (21:32)
[2019-07-26] MEDS: tiZANidine HCl 2 MG Tablet GT (21:33)
[2019-07-27] MEDS: Propranolol 10 MG Tablet 20 MG GT ×3 (06:30→21:29)
[2019-07-27] MEDS: Enoxaparin 40 MG/0.4 ML Syringe SC (06:30)
[2019-07-27] MEDS: Jevity 1.5. 1,000 ML Bottle 360 ML GT ×4 (06:31→21:34)
[2019-07-27] MEDS: Nystatin Powder 15gm Bottle 1 APPLIC TOPICAL ×2 (06:31→21:26)
[2019-07-27] MEDS: Menthol/Lanolin/Calamine/Znox 113 GM Tube 1 APPLIC TOPICAL ×3 (06:31→21:25)
[2019-07-27 07:52] VITALS: O2SAT 97
--- NOTE | 2019-07-27 12:30 | NURSING ---
spoke with Dr Apple claims assistant, he will return call regarding concerns about stridorous breathing at times but if trach is lifted it immediately disappears & lungs clear. awaiting return call.
--- NOTE | 2019-07-27 15:30 | NURSING ---
Addendum entered by Maria Ferraro 07/27/19 15:39: Old dressing removed. Tracheostomy stoma cleansed with Sterile water. Inner cannula removed and new cannula inserted. New DSD applied and trach recapped. Pt tolerated well. Dressing at PEG site also changed and cleansed. Pt tolerated well. Original Note: Tracheostomy care performed at this time by this nurse.
[2019-07-27 15:44] VITALS: BP 118/71; PULSE 75; RESP 17; TEMP 37; O2SAT 97
[2019-07-27 21:20] VITALS: O2SAT 94
[2019-07-27 21:22] VITALS: BP 115/64; PULSE 90; O2SAT 95
[2019-07-27] MEDS: MELATONIN 10 MG TABLET 5 MG PO (21:29)
[2019-07-27] MEDS: tiZANidine HCl 2 MG Tablet GT (21:29)
[2019-07-28 05:40] VITALS: BP 123/73; PULSE 84; O2SAT 97
[2019-07-28] MEDS: Nystatin Powder 15gm Bottle 1 APPLIC TOPICAL ×2 (05:42→21:42)
[2019-07-28] MEDS: Menthol/Lanolin/Calamine/Znox 113 GM Tube 1 APPLIC TOPICAL ×3 (05:42→21:41)
[2019-07-28] MEDS: Propranolol 10 MG Tablet 20 MG GT ×3 (05:44→21:34)
[2019-07-28] MEDS: Jevity 1.5. 1,000 ML Bottle 360 ML GT ×4 (05:59→22:34)
[2019-07-28] MEDS: Enoxaparin 40 MG/0.4 ML Syringe SC (06:00)
[2019-07-28] MEDS: Acetaminophen 650 MG/20 ML UDC GT ×2 (11:27→21:38)
--- NOTE | 2019-07-28 11:30 | NURSING ---
Attempted to administer tube feed but pt with 80cc residual from morning feeding. Mom states pt rubbing head, felt his head hurting. Tylenol adminstered via PEG. will try tube feed later.
[2019-07-28 12:45] VITALS: PULSE 83; RESP 18; O2SAT 96
--- NOTE | 2019-07-28 13:30 | RAD_ITS ---
STUDY: SWALLOWING STUDY REASON FOR EXAM: Male, 19 years old. DYSPHAGIA TECHNIQUE: The examination was performed with Speech Pathology in attendance. Under fluoroscopic observation, the patient ingested thin barium, thick barium, barium pudding, and barium coated cracker. FLUOROSCOPY TIME: 2:08 minutes/seconds RADIOLOGIST INVOLVEMENT: Radiologist was present and providing direct supervision. COMPARISON: None. FINDINGS: The following was observed during swallowing of the various mixtures of barium: Thin Barium: There was no evidence of aspiration or laryngeal penetration. Thick Barium: There was no evidence of aspiration or laryngeal penetration. Barium Pudding: There was no evidence of aspiration or laryngeal penetration. Barium Coated Cracker: There was no evidence of aspiration or laryngeal penetration. RAD/Swallowing Function w/Video IMPRESSION: Normal tailored barium swallow study. No evidence of increased risk for aspiration. The swallow study findings were discussed with the patient by the speech pathologist at the conclusion of the examination. Please see speech pathology report for more information and recommendations. Electronically Signed: Sorin Ferrer, at 14:29 EST , Service support ,
--- NOTE | 2019-07-28 15:06 | CHAPLAIN ---
Type of Pastoral Visit ___ Initial Visit _x__ Follow-up Visit ___ On-call Visit ___ General Patient Visit ___ Spiritual Assessment ___ Family Conference ___ Bereavement ___ Rapid Response ___ Code Blue ___ Other (describe below) Pastoral Care Referral From ___ Patient _x__ Family ___ Nurse ___ Physician ___ Recruitment Intern ___ Electric Trucker ___ Other (describe below) Sacrament/Intervention _x__ Active listening ___ Anointing ___ Jain ___ Bereavement ___ Communion ___ Nickie exploration ___ ___ Life review ___ Prayer ___ Reconciliation ___ Sacrament of Sick _x__ Supportive presence ___ Wedding ___ Other (describe below) Pastoral Comments spoke directly to patient and he was able to track this videographer with his eyes and followed me as I moved into chair; when talked to the patient did turn his head to videographer; pt does not try to speak and does not show any emotion or feelings; 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
--- NOTE | 2019-07-28 15:29 | NURSING ---
this nurse changed out inter cannula and cleaned trak area and applied new dressing. peg placement verified ,10 residual. scheduled meds given with 100 flush of sterile water. bed in low position,mother in room. pt tolerated well. reported to rica argueta
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
[2019-07-28 16:00] VITALS: BP 120/71; PULSE 78; RESP 22; TEMP 36.9; O2SAT 96
--- NOTE | 2019-07-28 16:43 | CASEMGMT ---
Social Work Met with patient and mother about patient's current status. Pt had repeat MBS on this date and passed and has been upgraded to puree, thin diet. Discussed pt's appt with ENT on 07/24. Mother inquiring about other options and had several questions about the outcome. Provided a list of other ENTs for pt to get other opinions about trach short and emt intermediate. Inquired about pt's mood. Mother reports no change in mood she can see, although staff has noticed a decline in mood. Explained mood symptoms and signs from brain injury and offered continued support, along with pharmacological intervention if needed. Encouraged mother to speak with physician or nursing further with any questions and assistance. Mother appreciative of visit and information. Will continue to follow. LENORE Kimbrough
--- NOTE | 2019-07-28 18:45 | NURSING ---
PEG PLACEMENT VERIFIED,0 RESIDUAL. HOB 30 DEGREES, JEVITY 1.5 360CC GIVEN, FLUSHED 300CC. PT TOLERATED WELL. RAILS UP X2, BED IN LOW POSITION,FAMILY IN ROOM.
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
[2019-07-28] MEDS: tiZANidine HCl 2 MG Tablet GT (21:33)
[2019-07-28] MEDS: MELATONIN 10 MG TABLET 5 MG PO (21:33)
[2019-07-29 05:22] VITALS: BP 127/85; PULSE 87
[2019-07-29] MEDS: Acetaminophen 650 MG/20 ML UDC GT ×3 (05:28→20:34)
[2019-07-29] MEDS: Propranolol 10 MG Tablet 20 MG GT ×3 (05:28→20:34)
[2019-07-29] MEDS: Enoxaparin 40 MG/0.4 ML Syringe SC (05:40)
[2019-07-29] MEDS: Jevity 1.5. 1,000 ML Bottle 360 ML GT (05:40)
[2019-07-29] MEDS: Menthol/Lanolin/Calamine/Znox 113 GM Tube 1 APPLIC TOPICAL ×3 (05:41→20:43)
[2019-07-29] MEDS: Nystatin Powder 15gm Bottle 1 APPLIC TOPICAL ×2 (05:42→20:44)
--- NOTE | 2019-07-29 11:49 | NURSING ---
PER SPEECH THERAPY, ASK DIETARY TO ADJUST TUBE FEEDINGS DO TO PT DID VERY WELL WITH EATING TODAY. NO STRAWS, SUPERVISED FEED, OK FOR FAMILY TO FEED PT. ENCOURAGE PT TO HOLD DRINKING CUP AND UTENSILS. PT UP 90 DEGREES DURING INTAKE AND STAY UP FOR 30 TO 90 MINS AFTER EATING. INSTRUCTIONS ON BOARD IN PT ROOM. REPORTED TO HELEN MCCAIN
[2019-07-29 15:39] VITALS: BP 124/85; PULSE 83; RESP 20; TEMP 36.9; O2SAT 98
[2019-07-29 20:35] VITALS: PULSE 72; RESP 16; O2SAT 97
[2019-07-29] MEDS: MELATONIN 10 MG TABLET 5 MG PO (20:35)
[2019-07-29] MEDS: tiZANidine HCl 2 MG Tablet GT (20:35)
[2019-07-30 06:38] VITALS: O2SAT 95
[2019-07-30] MEDS: Enoxaparin 40 MG/0.4 ML Syringe SC (07:04)
[2019-07-30] MEDS: Menthol/Lanolin/Calamine/Znox 113 GM Tube 1 APPLIC TOPICAL ×3 (07:04→22:03)
[2019-07-30] MEDS: Acetaminophen 650 MG/20 ML UDC GT ×3 (07:04→21:22)
[2019-07-30] MEDS: Nystatin Powder 15gm Bottle 1 APPLIC TOPICAL ×2 (07:05→22:03)
[2019-07-30] MEDS: Propranolol 10 MG Tablet 20 MG GT ×3 (07:08→21:20)
--- NOTE | 2019-07-30 08:54 | NS ---
Recommend bolus feeds of Jevity 1.5 360 cc after each meal if PO intake <50% at meals. Recommend continue w/ 360cc feeding at night until adequate, consistent intake at meals is established. Recommend 150cc H2O flush every 4 hours to provide ~900cc/day additional fluid. Will adjust flushes pending PO fluid intake as established. Daily weights for close monitoring of nutritional status. Continue regular diet, consistency per ROUGH RICE GRADER. Will provide ONS w/ meals for additional calories/protein if consumed. Discussed recommendations w/ Sejal, TCU staff. Please contact clinical RDN w/ further questions at [phone]. Lizy Ayoub MS, RDN, LD
--- NOTE | 2019-07-30 09:01 | NURSING ---
Received notification from Dietary to change Jevity bolus feeding to 360ml after meals, hold if patient consumes 50% or more. Continue 150ml water flush 4xday and give a nightly Jevity tube feed of 360ml. Monitor weight daily for one week.
--- NOTE | 2019-07-30 13:24 | NURSING ---
spoke with AC, pt to be NPO at midnight, no meds d/t inability to take with a sip of water. plan for pt to come down [phone] with surgery at 1100, subject to change
[2019-07-30 16:00] VITALS: BP 117/63; PULSE 73; RESP 18; TEMP 36.7; O2SAT 99
[2019-07-30] MEDS: tiZANidine HCl 2 MG Tablet GT (21:20)
[2019-07-30] MEDS: MELATONIN 10 MG TABLET 5 MG PO (21:23)
[2019-07-30] MEDS: Jevity 1.5. 1,000 ML Bottle 360 ML GT (21:34)
[2019-07-31 06:16] VITALS: BP 107/70; PULSE 76
[2019-07-31] MEDS: Menthol/Lanolin/Calamine/Znox 113 GM Tube 1 APPLIC TOPICAL ×3 (06:19→22:34)
[2019-07-31] MEDS: Nystatin Powder 15gm Bottle 1 APPLIC TOPICAL ×2 (06:20→22:34)
[2019-07-31] MEDS: Enoxaparin 40 MG/0.4 ML Syringe SC (06:23)
[2019-07-31] MEDS: Propranolol 10 MG Tablet 20 MG GT ×3 (06:30→22:05)
[2019-07-31 10:00] VITALS: PULSE 67; RESP 18; O2SAT 97
[2019-07-31] MEDS: Acetaminophen 650 MG/20 ML UDC GT ×2 (14:00→22:04)
[2019-07-31 15:09] VITALS: BP 108/58; PULSE 68; RESP 19; TEMP 37; O2SAT 97
--- NOTE | 2019-07-31 15:11 | NURSING ---
this RN spoke with Dr. 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
[2019-07-31 16:48] VITALS: O2SAT 96
[2019-07-31] MEDS: Jevity 1.5. 1,000 ML Bottle 360 ML GT ×2 (18:04→22:27)
[2019-07-31 21:30] VITALS: BP 126/79; PULSE 86; O2SAT 98
[2019-07-31] MEDS: tiZANidine HCl 2 MG Tablet GT (22:05)
[2019-07-31] MEDS: MELATONIN 10 MG TABLET 5 MG PO (22:06)
[2019-08-01] MEDS: Propranolol 10 MG Tablet 20 MG GT ×3 (06:39→21:20)
[2019-08-01] MEDS: Menthol/Lanolin/Calamine/Znox 113 GM Tube 1 APPLIC TOPICAL ×3 (06:51→21:25)
[2019-08-01] MEDS: Nystatin Powder 15gm Bottle 1 APPLIC TOPICAL ×2 (06:51→21:43)
[2019-08-01 07:28] VITALS: O2SAT 98
[2019-08-01] MEDS: Enoxaparin 40 MG/0.4 ML Syringe SC (09:22)
[2019-08-01 15:30] VITALS: BP 111/57; PULSE 77; RESP 20; TEMP 37.1; O2SAT 99
[2019-08-01] MEDS: MELATONIN 10 MG TABLET 5 MG PO (21:20)
[2019-08-01] MEDS: tiZANidine HCl 2 MG Tablet GT (21:20)
[2019-08-01] MEDS: Jevity 1.5. 1,000 ML Bottle 360 ML GT (21:21)
[2019-08-02] MEDS: Acetaminophen 650 MG/20 ML UDC GT ×3 (03:29→22:00)
--- NOTE | 2019-08-02 03:41 | NURSING ---
This nurse and CHECK WRITING MACHINE OPERATOR into reposition pt. Stool noted to be on hands, blankets and pillow sheets. Incontinence care provided. Pt noted to of picked scab off of posterior head, a small amount of blood noted to be on pillow case. Area cleansed with NS and adaptic with DSD applied. Pt noted to be restless. Pt mom requesting Tylenol be given stating he gets restless like this when he has pain. PRN tylenol given via PEG. Pt lying in bed, mom at bedside, bed in the lowest position, PA on and call light in reach.
[2019-08-02] MEDS: Enoxaparin 40 MG/0.4 ML Syringe SC (06:43)
[2019-08-02] MEDS: Propranolol 10 MG Tablet 20 MG GT ×3 (06:44→21:58)
[2019-08-02] MEDS: Menthol/Lanolin/Calamine/Znox 113 GM Tube 1 APPLIC TOPICAL ×3 (06:56→22:12)
[2019-08-02] MEDS: Nystatin Powder 15gm Bottle 1 APPLIC TOPICAL ×2 (06:57→22:14)
[2019-08-02 09:20] VITALS: PULSE 81; RESP 18; O2SAT 98
--- NOTE | 2019-08-02 13:15 | CPS ---
patient not in room, trach tube and oxygenation not assessed
--- NOTE | 2019-08-02 13:50 | CPS ---
Patient not in room, tracheostomy tube and oxygenation not assessed.
[2019-08-02 16:00] VITALS: BP 124/65; PULSE 71; RESP 19; TEMP 37.2; O2SAT 98
[2019-08-02 16:39] VITALS: O2SAT 98
--- NOTE | 2019-08-02 18:56 | NURSING ---
PT ATE WELL TODAY,NO BOLUSES GIVEN. INTER CANNULA CHANGED AND TRACH AREA CLEANED WITH NEW DRESSING. PT TOLERATED WELL. PT RESTING IN RECLINER AT THIS TIME PARENTS IN ROOM.
[2019-08-02] MEDS: MELATONIN 10 MG TABLET 5 MG PO (21:57)
[2019-08-02] MEDS: tiZANidine HCl 2 MG Tablet GT (22:00)
[2019-08-02] MEDS: Jevity 1.5. 1,000 ML Bottle 360 ML GT (22:14)
[2019-08-03 05:50] VITALS: O2SAT 97
[2019-08-03] MEDS: Propranolol 10 MG Tablet 20 MG GT ×3 (06:06→21:52)
[2019-08-03] MEDS: Enoxaparin 40 MG/0.4 ML Syringe SC (06:06)
[2019-08-03] MEDS: Menthol/Lanolin/Calamine/Znox 113 GM Tube 1 APPLIC TOPICAL ×3 (06:16→22:08)
[2019-08-03] MEDS: Nystatin Powder 15gm Bottle 1 APPLIC TOPICAL ×2 (06:18→22:10)
[2019-08-03 16:00] VITALS: BP 128/78; PULSE 88; RESP 20; TEMP 36.7; O2SAT 98
[2019-08-03] MEDS: tiZANidine HCl 2 MG Tablet GT (21:52)
[2019-08-03] MEDS: Acetaminophen 650 MG/20 ML UDC GT (21:52)
[2019-08-03] MEDS: MELATONIN 10 MG TABLET 5 MG PO (21:53)
[2019-08-03] MEDS: Jevity 1.5. 1,000 ML Bottle 360 ML GT (22:11)
[2019-08-03 22:12] VITALS: PULSE 74; O2SAT 98
[2019-08-04] MEDS: Nystatin Powder 15gm Bottle 1 APPLIC TOPICAL ×2 (06:15→22:01)
[2019-08-04] MEDS: Menthol/Lanolin/Calamine/Znox 113 GM Tube 1 APPLIC TOPICAL ×3 (06:15→22:01)
[2019-08-04] MEDS: Enoxaparin 40 MG/0.4 ML Syringe SC (06:17)
[2019-08-04] MEDS: Propranolol 10 MG Tablet 20 MG GT ×3 (06:17→22:02)
[2019-08-04 10:00] VITALS: PULSE 76; RESP 20
[2019-08-04] MEDS: Acetaminophen 650 MG/20 ML UDC GT ×2 (15:01→22:01)
[2019-08-04 15:09] VITALS: BP 117/69; PULSE 76; RESP 22; TEMP 37.1; O2SAT 99
[2019-08-04] MEDS: tiZANidine HCl 2 MG Tablet GT (22:02)
[2019-08-04] MEDS: MELATONIN 10 MG TABLET 5 MG PO (22:02)
[2019-08-04] MEDS: Jevity 1.5. 1,000 ML Bottle 360 ML GT (22:28)
[2019-08-05] MEDS: Enoxaparin 40 MG/0.4 ML Syringe SC (07:09)
[2019-08-05] MEDS: Nystatin Powder 15gm Bottle 1 APPLIC TOPICAL ×2 (07:10→20:29)
[2019-08-05] MEDS: Propranolol 10 MG Tablet 20 MG GT ×3 (07:10→20:26)
[2019-08-05] MEDS: Menthol/Lanolin/Calamine/Znox 113 GM Tube 1 APPLIC TOPICAL ×3 (07:11→20:35)
[2019-08-05] MEDS: Acetaminophen 650 MG/20 ML UDC GT ×2 (09:01→20:27)
--- NOTE | 2019-08-05 13:20 | NURSING ---
PT LEFT FLOOR AT 12:55 BY WHEEL CHAIR FOR DOCTOR APPOINTMENT. PARENTS TAKING PT.
--- NOTE | 2019-08-05 14:13 | NURSING ---
PT RETURNED TO FLOOR AT 1410.
[2019-08-05 16:00] VITALS: BP 120/69; PULSE 71; RESP 20; TEMP 37.1; O2SAT 95
[2019-08-05] MEDS: tiZANidine HCl 2 MG Tablet GT (20:26)
[2019-08-05] MEDS: MELATONIN 10 MG TABLET 5 MG PO (20:26)
[2019-08-05] MEDS: Jevity 1.5. 1,000 ML Bottle 360 ML GT (20:55)
[2019-08-05 20:58] VITALS: PULSE 80; RESP 16; O2SAT 97
[2019-08-06] MEDS: Menthol/Lanolin/Calamine/Znox 113 GM Tube 1 APPLIC TOPICAL ×3 (06:19→22:39)
[2019-08-06] MEDS: Nystatin Powder 15gm Bottle 1 APPLIC TOPICAL ×2 (06:20→22:54)
[2019-08-06] MEDS: Enoxaparin 40 MG/0.4 ML Syringe SC (06:24)
[2019-08-06] MEDS: Propranolol 10 MG Tablet 20 MG GT ×3 (06:25→22:40)
--- NOTE | 2019-08-06 06:51 | NURSING ---
This nurse changed inner cannula and cleaned trach area and applied new dressing. Peg area cleansed and dressing changed. Scheduled meds given with 150 flush of sterile water. Bed in low position,mother in room. pt tolerated well. Pt was given supplements this morning per mother.
[2019-08-06 07:12] VITALS: RESP 16; O2SAT 98
[2019-08-06] MEDS: Acetaminophen 650 MG/20 ML UDC GT ×2 (08:49→22:41)
[2019-08-06 16:00] VITALS: BP 116/61; PULSE 59; RESP 20; TEMP 37; O2SAT 100
[2019-08-06] MEDS: Jevity 1.5. 1,000 ML Bottle 360 ML GT (22:36)
[2019-08-06] MEDS: MELATONIN 10 MG TABLET 5 MG PO (22:40)
[2019-08-06] MEDS: tiZANidine HCl 2 MG Tablet GT (22:40)
[2019-08-06 23:31] VITALS: PULSE 72; RESP 16; O2SAT 98
[2019-08-07] MEDS: Enoxaparin 40 MG/0.4 ML Syringe SC (06:26)
[2019-08-07] MEDS: Propranolol 10 MG Tablet 20 MG GT ×3 (06:35→22:26)
[2019-08-07] MEDS: Nystatin Powder 15gm Bottle 1 APPLIC TOPICAL ×2 (06:36→22:48)
[2019-08-07] MEDS: Menthol/Lanolin/Calamine/Znox 113 GM Tube 1 APPLIC TOPICAL ×3 (06:48→22:47)
--- NOTE | 2019-08-07 06:52 | NURSING ---
Scheduled meds given with 150 flush of sterile water. Bed in low position,mother in room. pt tolerated well. Pt was given supplements this morning per mother.
[2019-08-07 07:28] VITALS: O2SAT 97
[2019-08-07 10:00] VITALS: PULSE 79; RESP 14; O2SAT 97
--- NOTE | 2019-08-07 11:03 | NURSING ---
Trach site and peg cleaned. Inner cannula and dressing changed.
[2019-08-07 16:00] VITALS: BP 115/58; PULSE 85; RESP 16; TEMP 37.1; O2SAT 97
[2019-08-07] MEDS: MELATONIN 10 MG TABLET 5 MG PO (22:26)
[2019-08-07] MEDS: tiZANidine HCl 2 MG Tablet GT (22:26)
[2019-08-07] MEDS: Acetaminophen 650 MG/20 ML UDC GT (22:27)
[2019-08-07] MEDS: Jevity 1.5. 1,000 ML Bottle 360 ML GT (22:50)
--- NOTE | 2019-08-08 01:49 | NURSING ---
0 residual, placement verified, given hs bolus 360ml with 150 flush of sterile water. Pt was given hs meds and supplements per mother request. Pt tolerated well.
[2019-08-08] MEDS: Propranolol 10 MG Tablet 20 MG GT ×3 (05:51→23:15)
[2019-08-08] MEDS: Enoxaparin 40 MG/0.4 ML Syringe SC (05:52)
[2019-08-08] MEDS: Menthol/Lanolin/Calamine/Znox 113 GM Tube 1 APPLIC TOPICAL ×3 (05:54→23:20)
[2019-08-08] MEDS: Nystatin Powder 15gm Bottle 1 APPLIC TOPICAL ×2 (05:54→23:19)
--- NOTE | 2019-08-08 06:04 | NURSING ---
0 residual, placement verified, given AM meds and supplements with 150 flush of sterile water. HOB elevated at 30 degrees, bed lower, and call light within reach. Supplements given per mother request. Pt tolerated well.
[2019-08-08 07:20] VITALS: O2SAT 98
[2019-08-08 16:00] VITALS: BP 110/67; PULSE 66; RESP 18; TEMP 37.1; O2SAT 100
[2019-08-08 19:59] VITALS: O2SAT 97
[2019-08-08 22:00] VITALS: PULSE 76; RESP 16; O2SAT 96
[2019-08-08] MEDS: MELATONIN 10 MG TABLET 5 MG PO (23:15)
[2019-08-08] MEDS: Acetaminophen 650 MG/20 ML UDC GT (23:16)
[2019-08-08] MEDS: tiZANidine HCl 2 MG Tablet GT (23:16)
[2019-08-08] MEDS: Jevity 1.5. 1,000 ML Bottle 360 ML GT (23:20)
[2019-08-09] MEDS: Propranolol 10 MG Tablet 20 MG GT ×3 (06:50→21:25)
[2019-08-09] MEDS: Enoxaparin 40 MG/0.4 ML Syringe SC (06:50)
[2019-08-09] MEDS: Nystatin Powder 15gm Bottle 1 APPLIC TOPICAL ×2 (06:58→21:48)
[2019-08-09] MEDS: Menthol/Lanolin/Calamine/Znox 113 GM Tube 1 APPLIC TOPICAL ×3 (06:58→21:44)
[2019-08-09 10:00] VITALS: PULSE 80; RESP 16; O2SAT 97
[2019-08-09 15:54] VITALS: BP 114/64; PULSE 72; RESP 18; TEMP 37; O2SAT 93
[2019-08-09] MEDS: Acetaminophen 650 MG/20 ML UDC GT (21:24)
[2019-08-09] MEDS: tiZANidine HCl 2 MG Tablet GT (21:25)
[2019-08-09] MEDS: MELATONIN 10 MG TABLET 5 MG PO (21:25)
[2019-08-09] MEDS: Jevity 1.5. 1,000 ML Bottle 360 ML GT (21:50)
[2019-08-10] MEDS: Propranolol 10 MG Tablet 20 MG GT ×3 (04:10→22:10)
[2019-08-10] MEDS: Enoxaparin 40 MG/0.4 ML Syringe SC (04:10)
[2019-08-10] MEDS: Nystatin Powder 15gm Bottle 1 APPLIC TOPICAL ×2 (04:19→22:14)
[2019-08-10] MEDS: Menthol/Lanolin/Calamine/Znox 113 GM Tube 1 APPLIC TOPICAL ×3 (04:20→22:13)
--- NOTE | 2019-08-10 14:38 | NURSING ---
trach site cleaned, inter cannula and dressing changed. pt tolerated well
[2019-08-10 16:00] VITALS: BP 102/70; PULSE 87; RESP 20; TEMP 36.9; O2SAT 100
[2019-08-10] MEDS: MELATONIN 10 MG TABLET 5 MG PO (22:10)
[2019-08-10] MEDS: Acetaminophen 650 MG/20 ML UDC GT (22:10)
[2019-08-10] MEDS: Jevity 1.5. 1,000 ML Bottle 360 ML GT (22:10)
[2019-08-10] MEDS: tiZANidine HCl 2 MG Tablet GT (22:10)
[2019-08-11] MEDS: Propranolol 10 MG Tablet 20 MG GT ×3 (05:42→21:44)
[2019-08-11] MEDS: Menthol/Lanolin/Calamine/Znox 113 GM Tube 1 APPLIC TOPICAL ×3 (05:49→22:07)
[2019-08-11] MEDS: Nystatin Powder 15gm Bottle 1 APPLIC TOPICAL ×2 (05:50→22:07)
[2019-08-11] MEDS: Enoxaparin 40 MG/0.4 ML Syringe SC (06:29)
[2019-08-11 07:20] VITALS: O2SAT 96
[2019-08-11 10:00] VITALS: RESP 14
[2019-08-11] MEDS: Acetaminophen 650 MG/20 ML UDC GT ×2 (14:45→21:50)
--- NOTE | 2019-08-11 14:58 | NURSING ---
Trach site cleaned, innercanula changed. Dressing to trach and peg changed.
[2019-08-11 16:00] VITALS: BP 115/73; PULSE 76; RESP 19; TEMP 36.9; O2SAT 98
[2019-08-11] MEDS: tiZANidine HCl 2 MG Tablet GT (21:44)
[2019-08-11] MEDS: MELATONIN 10 MG TABLET 5 MG PO (21:44)
[2019-08-11] MEDS: Jevity 1.5. 1,000 ML Bottle 360 ML GT (21:50)
[2019-08-12] MEDS: Propranolol 10 MG Tablet 20 MG GT ×3 (06:01→21:22)
[2019-08-12] MEDS: Enoxaparin 40 MG/0.4 ML Syringe SC (06:11)
[2019-08-12] MEDS: Menthol/Lanolin/Calamine/Znox 113 GM Tube 1 APPLIC TOPICAL ×3 (06:18→21:50)
[2019-08-12] MEDS: Nystatin Powder 15gm Bottle 1 APPLIC TOPICAL ×2 (06:18→21:50)
[2019-08-12] MEDS: Acetaminophen 650 MG/20 ML UDC GT ×2 (12:49→21:23)
[2019-08-12 16:00] VITALS: BP 116/69; PULSE 84; RESP 19; TEMP 37; O2SAT 97
--- NOTE | 2019-08-12 16:50 | NURSING ---
Trach and peg tube cleaned and dressings changed. Inner cannula changed.
[2019-08-12] MEDS: tiZANidine HCl 2 MG Tablet GT (21:22)
[2019-08-12] MEDS: MELATONIN 10 MG TABLET 5 MG PO (21:22)
[2019-08-12 21:25] VITALS: PULSE 60; RESP 16; O2SAT 98
[2019-08-12] MEDS: Jevity 1.5. 1,000 ML Bottle 480 ML GT (21:51)
[2019-08-13] MEDS: Menthol/Lanolin/Calamine/Znox 113 GM Tube 1 APPLIC TOPICAL ×3 (06:27→22:10)
[2019-08-13] MEDS: Nystatin Powder 15gm Bottle 1 APPLIC TOPICAL ×2 (06:27→22:10)
[2019-08-13] MEDS: Propranolol 10 MG Tablet 20 MG GT ×3 (06:28→22:09)
[2019-08-13] MEDS: Enoxaparin 40 MG/0.4 ML Syringe SC (06:28)
[2019-08-13] MEDS: Acetaminophen 650 MG/20 ML UDC GT ×2 (10:33→22:08)
[2019-08-13 10:45] VITALS: PULSE 77; RESP 18; O2SAT 98
--- NOTE | 2019-08-13 13:12 | NURSING ---
TRACH SITE CLEANED AND DRESSING CHANGED. INTER CANNULA CHANGED. PT TOLERATED WELL.
[2019-08-13 16:00] VITALS: BP 131/71; PULSE 70; RESP 16; TEMP 36.8; O2SAT 98
[2019-08-13] MEDS: MELATONIN 10 MG TABLET 5 MG PO (22:08)
[2019-08-13] MEDS: tiZANidine HCl 2 MG Tablet GT (22:09)
[2019-08-13] MEDS: Jevity 1.5. 1,000 ML Bottle 480 ML GT (22:23)
[2019-08-14] MEDS: Propranolol 10 MG Tablet 20 MG GT ×3 (05:56→23:27)
[2019-08-14] MEDS: Enoxaparin 40 MG/0.4 ML Syringe SC (06:00)
[2019-08-14] MEDS: Nystatin Powder 15gm Bottle 1 APPLIC TOPICAL ×2 (06:01→23:30)
[2019-08-14] MEDS: Menthol/Lanolin/Calamine/Znox 113 GM Tube 1 APPLIC TOPICAL ×3 (06:02→23:28)
[2019-08-14] MEDS: Acetaminophen 650 MG/20 ML UDC GT ×2 (12:52→23:09)
--- NOTE | 2019-08-14 14:51 | NURSING ---
PT HAD SHOWER, DRESSING CHANGED TO PT TRACH SITE AND PEG TUBE DUE TO WETNESS.
[2019-08-14 16:00] VITALS: BP 102/59; PULSE 67; RESP 17; TEMP 36.9; O2SAT 97
[2019-08-14 23:00] VITALS: PULSE 75; O2SAT 97
[2019-08-14] MEDS: Jevity 1.5. 1,000 ML Bottle 480 ML GT (23:09)
[2019-08-14] MEDS: tiZANidine HCl 2 MG Tablet GT (23:27)
[2019-08-14] MEDS: MELATONIN 10 MG TABLET 5 MG PO (23:27)
[2019-08-15] MEDS: Menthol/Lanolin/Calamine/Znox 113 GM Tube 1 APPLIC TOPICAL ×3 (06:56→23:06)
[2019-08-15] MEDS: Enoxaparin 40 MG/0.4 ML Syringe SC (06:58)
[2019-08-15] MEDS: Propranolol 10 MG Tablet 20 MG GT ×3 (06:58→23:07)
[2019-08-15] MEDS: Nystatin Powder 15gm Bottle 1 APPLIC TOPICAL ×2 (07:16→23:09)
--- NOTE | 2019-08-15 14:10 | NURSING ---
Trach and peg tube dressing changed and cleaned. Inner cannula changed.
[2019-08-15] MEDS: Acetaminophen 650 MG/20 ML UDC GT ×2 (14:59→23:09)
[2019-08-15 15:00] VITALS: BP 121/71; PULSE 78; RESP 24; TEMP 37.1; O2SAT 98
[2019-08-15] MEDS: tiZANidine HCl 2 MG Tablet GT (23:06)
[2019-08-15] MEDS: MELATONIN 10 MG TABLET 5 MG PO (23:08)
[2019-08-15] MEDS: Jevity 1.5. 1,000 ML Bottle 480 ML GT (23:08)
[2019-08-15 23:10] VITALS: PULSE 67; RESP 18; O2SAT 98
[2019-08-16] MEDS: Menthol/Lanolin/Calamine/Znox 113 GM Tube 1 APPLIC TOPICAL ×3 (06:21→21:42)
[2019-08-16] MEDS: Propranolol 10 MG Tablet 20 MG GT ×3 (06:22→21:42)
[2019-08-16] MEDS: Enoxaparin 40 MG/0.4 ML Syringe SC (06:23)
[2019-08-16] MEDS: Nystatin Powder 15gm Bottle 1 APPLIC TOPICAL ×2 (06:24→21:40)
[2019-08-16 15:56] VITALS: BP 110/67; PULSE 80; RESP 17; TEMP 37.1; O2SAT 97
[2019-08-16] MEDS: MELATONIN 10 MG TABLET 5 MG PO (21:40)
[2019-08-16] MEDS: Acetaminophen 650 MG/20 ML UDC GT (21:41)
[2019-08-16] MEDS: tiZANidine HCl 2 MG Tablet GT (21:42)
[2019-08-16] MEDS: Jevity 1.5. 1,000 ML Bottle 480 ML GT (21:43)
[2019-08-16 21:45] VITALS: BP 131/80; PULSE 100; RESP 20; TEMP 37.1; O2SAT 97
[2019-08-17] MEDS: Propranolol 10 MG Tablet 20 MG GT ×3 (06:57→21:37)
[2019-08-17] MEDS: Enoxaparin 40 MG/0.4 ML Syringe SC (06:57)
[2019-08-17] MEDS: Menthol/Lanolin/Calamine/Znox 113 GM Tube 1 APPLIC TOPICAL ×3 (07:17→21:58)
[2019-08-17] MEDS: Nystatin Powder 15gm Bottle 1 APPLIC TOPICAL ×2 (07:21→21:58)
--- NOTE | 2019-08-17 08:44 | NURSING ---
PT FAMILY CALLED NURSE TO HIS ROOM. PT THREW UP ALL OF HIS BREAKFAST. THIS NURSE ASKED PT IF HIS STOMACH HURT OR FELT SICK. PT SHOOK HEAD NO. REPORTED TO HELEN SAGE
--- NOTE | 2019-08-17 08:55 | RAD_ITS ---
STUDY: X-RAY CHEST REASON FOR EXAM: Male, 19 years old. ASPIRATION TECHNIQUE: PA and lateral views of the chest. COMPARISON: Comparison is made with prior examination dated July 24, 2019. FINDINGS: A tracheostomy tube is in situ. The tip is at 4.4 cm proximal to the jamarcus. The lungs are clear and expanded. There is no demonstrated pleural abnormality. Normal size heart. Normal mediastinum and kris. Normal visualized pulmonary arteries. Normal visualized aortic arch and descending thoracic aorta. Normal visualized thoracic spine. Normal visualized ribs, clavicles, and shoulders. Findings suggestive of a gastrostomy tube. RAD/Chest PA and Lateral IMPRESSION: Normal x-ray examination of the chest. Electronically Signed: Sorin Ferrer, at 12:37 EST , Service support ,
[2019-08-17 14:00] VITALS: PULSE 85; RESP 18; O2SAT 96
[2019-08-17 16:00] VITALS: BP 118/71; PULSE 71; RESP 18; TEMP 36.6
[2019-08-17] MEDS: Acetaminophen 650 MG/20 ML UDC GT (21:37)
[2019-08-17] MEDS: tiZANidine HCl 2 MG Tablet GT (21:38)
[2019-08-17] MEDS: MELATONIN 10 MG TABLET 5 MG PO (21:38)
[2019-08-17] MEDS: Jevity 1.5. 1,000 ML Bottle 480 ML GT (21:56)
[2019-08-18] MEDS: Propranolol 10 MG Tablet 20 MG GT ×2 (06:03→13:16)
[2019-08-18] MEDS: Enoxaparin 40 MG/0.4 ML Syringe SC (06:03)
[2019-08-18] MEDS: Nystatin Powder 15gm Bottle 1 APPLIC TOPICAL ×2 (06:04→21:07)
[2019-08-18] MEDS: Menthol/Lanolin/Calamine/Znox 113 GM Tube 1 APPLIC TOPICAL ×3 (06:04→21:07)
--- NOTE | 2019-08-18 08:08 | NURSING ---
per family,pt was flushed at 6am.
--- NOTE | 2019-08-18 09:33 | NURSING ---
TRACH SITE CLEANED,NEW DRESSING AND INTER CANNULA.
--- NOTE | 2019-08-18 14:40 | PHA.CONS_ITS ---
<Khadra Vo M - Last Filed: 08/18/19 14:40> Progress Note - Pharmacy Subjective: [] TCU FOLLOW-UP Objective: Allergies No Known Allergies Allergy (Verified 07/12/19 06:19) Current Medications Generic Name Dose Route Start Last Admin Trade Name Freq PRN Reason Stop Dose Admin Acetaminophen 650 mg 06/30/19 15:19 08/15/19 14:59 Tylenol Liquid GT 650 mg Q6H PRN PRN Administration Pain 1-10 or Fever Acetaminophen 650 mg 08/02/19 22:00 08/17/19 21:37 Tylenol Liquid GT 650 mg QHS MIGUEL ÁNGEL Administration Albuterol Sulfate 2.5 mg 08/17/19 08:22 Ventolin Aerosols INHALATION Q2H PRN PRN WHEEZING Bisacodyl 10 mg 06/30/19 15:19 Dulcolax RECTAL DAILY PRN Constipation Calamine/Phenol 1 applic 06/30/19 22:00 08/18/19 13:15 Calmoseptine Ointment TOPICAL 1 applicatio TID [facility] Administration Protocol Enoxaparin Sodium 40 mg 07/01/19 06:00 08/18/19 06:03 Lovenox SC 40 mg DAILY@0600 [facility] Administration Enteral Nutritional Formula 480 ml 08/12/19 22:00 08/17/19 21:56 Jevity 1.5 GT 480 ml 2199 [facility] Administration Guaifenesin 10 ml 07/27/19 08:22 Robitussin GT Q4H PRN PRN secretions Loperamide HCl 2 mg 06/30/19 15:19 Imodium Liquid GT Q4H PRN PRN Diarrhea Melatonin 5 mg 06/30/19 22:00 08/17/19 21:38 Melatonin PO 5 mg QHS [facility] Administration Multi-Ingredient Cream 1 applic 07/15/19 22:00 08/18/19 06:04 Eucerin TOPICAL 1 applicatio 599,2199 [facility] Administration Protocol Nystatin 1 applic 07/11/19 22:00 08/18/19 06:04 Mycostatin Powder TOPICAL 1 applicatio 0600,0 [facility] Administration Protocol Propranolol HCl 20 mg 07/22/19 14:00 08/18/19 13:16 Inderal GT 20 mg TID MIGUEL [facility]NGEL Administration Tizanidine HCl 2 mg 06/30/19 20:00 08/17/19 21:38 Zanaflex GT 2 mg QHS@1999 [facility] Administration Problem List (Last Reviewed 06/24/19 @ 12:43 by Lisa Daly DO) Debility (Acute) Scalp laceration (Chronic) Insomnia (Chronic) Vital Signs Temp Pulse Resp BP Pulse Ox 97.9 F 71 18 118/71 96 08/17/19 16:00 08/17/19 16:00 08/17/19 16:00 08/17/19 16:00 08/17/19 14:00 Oxygen Flow Rate (L/min) 6 Oxygen Delivery Method Room Air Weight: 60.384 kg Body Mass Index (BMI) 22.1 Finger Stick Blood Glucose 151 Sodium 139 mmol/L (136-145) 07/17/19 05:05 Potassium 4.0 mmol/L (3.5-5.1) 07/17/19 05:05 Chloride 102 mmol/L (98-107) 07/17/19 05:05 Carbon Dioxide 29.0 mmol/L (21.0-32.0) 07/17/19 05:05 Anion Gap 8 (5-15) 07/17/19 05:05 BUN 12 mg/dL (7-18) 07/17/19 05:05 Creatinine 0.64 mg/dL (0.70-1.30) L 07/17/19 05:05 Est GFR (MDRD) Af Amer 201 mL/min (>60) 07/17/19 05:05 Est GFR (MDRD) Non-Af 166 mL/min (>60) 07/17/19 05:05 BUN/Creatinine Ratio 18.6 RATIO (10-20) 07/17/19 05:05 Glucose 98 mg/dL (74-106) 07/17/19 05:05 Assessment/Plan: 1. Pain: Tylenol Liquid 650mg GT QHS, Tylenol Liquid 650mg GT Q6H PRN Pain 1-10 or fever. Please continue to monitor PRN usage, S/S of increased or decreased pain 2. DVT prophylaxis: Lovenox 40mg SC daily. Please continue to monitor renal function, S/S bleeding and/or bruising 3. Insomnia - Melatonin 5mg GT QHS. Please continue to monitor for medication effectiveness. 4. Tachycardia - Propranolol 20mg GT TID. Please continue to monitor pulse, BP, medication effectiveness 6. Muscle spasm - Tizanidine 2mg GT QHS. Please continue to monitor patient for continued spasms, medication effectiveness 7. Wheezing/congestion: Robitussin 10mL GT Q4h PRN, Albuterol 1 inhalation Q2h PRN. Please continue to monitor for medication effectiveness, PRN usage Psychotropic Medications: None Unnecessary Medications: None Bowel Regimen: Imodium 2mg GT Q8H, Imodium 2mg GT Q4H PRN diarrhea, Dulcolax 10mg NC daily PRN constipation. Please continue to monitor patient's bowel status, amount of bowel movements/diarrhea. Date of Note:: 08/18/19 - Provider Comments Provider responsibility: Provider responsible to enter orders to implement recommendations <Joe Amaral Chi - Last Filed: 08/18/19 16:29> Progress Note - Pharmacy Subjective: [] Objective: Allergies No Known Allergies Allergy (Verified 07/12/19 06:19) Current Medications Generic Name Dose Route Start Last Admin Trade Name Freq PRN Reason Stop Dose Admin Acetaminophen 650 mg 06/30/19 15:19 08/15/19 14:59 Tylenol Liquid GT 650 mg Q6H PRN PRN Administration Pain 1-10 or Fever Acetaminophen 650 mg 08/02/19 22:00 08/17/19 21:37 Tylenol Liquid GT 650 mg QHS [facility] Administration Albuterol Sulfate 2.5 mg 08/17/19 08:22 Ventolin Aerosols INHALATION Q2H PRN PRN WHEEZING Bisacodyl 10 mg 06/30/19 15:19 Dulcolax RECTAL DAILY PRN Constipation Calamine/Phenol 1 applic 06/30/19 22:00 08/18/19 13:15 Calmoseptine Ointment TOPICAL 1 applicatio TID [facility] Administration Protocol Enoxaparin Sodium 40 mg 07/01/19 06:00 08/18/19 06:03 Lovenox SC 40 mg DAILY@0600 [facility] Administration Enteral Nutritional Formula 480 ml 08/12/19 22:00 08/17/19 21:56 Jevity 1.5 GT 480 ml 2200 [facility] Administration Guaifenesin 10 ml 07/27/19 08:22 Robitussin GT Q4H PRN PRN secretions Loperamide HCl 2 mg 06/30/19 15:19 Imodium Liquid GT Q4H PRN PRN Diarrhea Melatonin 5 mg 06/30/19 22:00 08/17/19 21:38 Melatonin PO 5 mg QHS [facility] Administration Multi-Ingredient Cream 1 applic 07/15/19 22:00 08/18/19 06:04 Eucerin TOPICAL 1 applicatio 06,2199 [facility] Administration Protocol Nystatin 1 applic 07/11/19 22:00 08/18/19 06:04 Mycostatin Powder TOPICAL 1 applicatio 0600,2200 [facility] Administration Protocol Propranolol HCl 20 mg 08/18/19 22:00 Inderal PO TID [facility] Tizanidine HCl 2 mg 08/18/19 20:00 Zanaflex PO QHS@1999 [facility] Problem List (Last Reviewed 06/24/19 @ 12:43 by Lisa Daly DO) Debility (Acute) Scalp laceration (Chronic) Insomnia (Chronic) Vital Signs Temp Pulse Resp BP Pulse Ox 97.3 F L 67 16 100/56 L 98 08/18/19 15:47 08/18/19 15:47 08/18/19 15:47 08/18/19 15:47 08/18/19 15:47 Oxygen Flow Rate (L/min) 6 Oxygen Delivery Method Room Air Weight: 60.384 kg Body Mass Index (BMI) 22.1 Finger Stick Blood Glucose 151 Sodium 139 mmol/L (136-145) 07/17/19 05:05 Potassium 4.0 mmol/L (3.5-5.1) 07/17/19 05:05 Chloride 102 mmol/L (98-107) 07/17/19 05:05 Carbon Dioxide 29.0 mmol/L (21.0-32.0) 07/17/19 05:05 Anion Gap 8 (5-15) 07/17/19 05:05 BUN 12 mg/dL (7-18) 07/17/19 05:05 Creatinine 0.64 mg/dL (0.70-1.30) L 07/17/19 05:05 Est GFR (MDRD) Af Amer 201 mL/min (>60) 07/17/19 05:05 Est GFR (MDRD) Non-Af 166 mL/min (>60) 07/17/19 05:05 BUN/Creatinine Ratio 18.6 RATIO (10-20) 07/17/19 05:05 Glucose 98 mg/dL (74-106) 07/17/19 05:05 Assessment/Plan: Psychotropic Medications: Unnecessary Medications: Bowel Regimen: - Provider Comments Provider responsibility: Provider responsible to enter orders to implement recommendations Provider Comments to Recommendations by Pharmacy: Agree
[2019-08-18 15:47] VITALS: BP 100/56; PULSE 67; RESP 16; TEMP 36.3; O2SAT 98
--- NOTE | 2019-08-18 16:25 | CHAPLAIN ---
brief visit with parents of patient who is sleeping; parents report good progress and that DR at today's follow up appt is pleased; pt will be having surgery in September; continual support available
[2019-08-18 21:01] VITALS: BP 103/60; PULSE 76
[2019-08-18] MEDS: MELATONIN 10 MG TABLET 5 MG PO (21:04)
[2019-08-18] MEDS: Propranolol 10 MG Tablet 20 MG PO (21:04)
[2019-08-18] MEDS: tiZANidine HCl 2 MG Tablet PO (21:04)
[2019-08-18] MEDS: Jevity 1.5. 1,000 ML Bottle 480 ML GT (21:36)
[2019-08-18] MEDS: Acetaminophen 650 MG/20 ML UDC GT (21:42)
[2019-08-19 06:06] VITALS: BP 108/65; PULSE 61
[2019-08-19] MEDS: Enoxaparin 40 MG/0.4 ML Syringe SC (06:06)
[2019-08-19] MEDS: Propranolol 10 MG Tablet 20 MG PO ×3 (06:06→22:15)
[2019-08-19] MEDS: Menthol/Lanolin/Calamine/Znox 113 GM Tube 1 APPLIC TOPICAL ×3 (06:07→22:55)
[2019-08-19] MEDS: Nystatin Powder 15gm Bottle 1 APPLIC TOPICAL ×2 (06:07→22:55)
[2019-08-19 10:00] VITALS: PULSE 73; RESP 16; O2SAT 97
--- NOTE | 2019-08-19 11:03 | NURSING ---
Trach dressing and inner canula changed. Pt tolerated well. Dressing presents with green colored sputum and stoma said has redness. Charge nurse notified.
[2019-08-19] MEDS: Acetaminophen 650 MG/20 ML UDC GT ×2 (13:04→22:16)
[2019-08-19 16:00] VITALS: BP 145/60; PULSE 67; RESP 18; TEMP 35.9; O2SAT 96
--- NOTE | 2019-08-19 16:06 | CHAPLAIN ---
Type of Pastoral Visit ___ Initial Visit _x__ Follow-up Visit ___ On-call Visit ___ General Patient Visit ___ Spiritual Assessment ___ Family Conference ___ Bereavement ___ Rapid Response ___ Code Blue ___ Other (describe below) Pastoral Care Referral From ___ Patient _x__ Family ___ Nurse ___ Physician ___ Technical Service Specialist ___ Telephone Solicitor ___ Other (describe below) Sacrament/Intervention ___ Active listening ___ Anointing ___ Restorationist ___ Bereavement ___ Communion ___ Nickie exploration ___ ___ Life review ___ Prayer ___ Reconciliation ___ Sacrament of Sick _x__ Supportive presence ___ Wedding ___ Other (describe below) Pastoral Comments brief hello to the patient; family members are coming and going from the room; offer of presence and support
[2019-08-19] MEDS: MELATONIN 10 MG TABLET 5 MG PO (22:15)
[2019-08-19] MEDS: Jevity 1.5. 1,000 ML Bottle 480 ML GT (22:15)
[2019-08-19] MEDS: tiZANidine HCl 2 MG Tablet PO (22:16)
[2019-08-20] MEDS: Menthol/Lanolin/Calamine/Znox 113 GM Tube 1 APPLIC TOPICAL ×2 (06:07→21:51)
[2019-08-20] MEDS: Nystatin Powder 15gm Bottle 1 APPLIC TOPICAL ×2 (06:08→21:51)
[2019-08-20] MEDS: Propranolol 10 MG Tablet 20 MG PO ×3 (06:10→21:53)
[2019-08-20] MEDS: Enoxaparin 40 MG/0.4 ML Syringe SC (06:11)
[2019-08-20 15:28] VITALS: BP 126/75; PULSE 95; RESP 16; TEMP 36.2; O2SAT 97
[2019-08-20] MEDS: Jevity 1.5. 1,000 ML Bottle 480 ML GT (21:50)
[2019-08-20] MEDS: MELATONIN 10 MG TABLET 5 MG PO (21:54)
[2019-08-20] MEDS: tiZANidine HCl 2 MG Tablet PO (21:54)
[2019-08-20 21:55] VITALS: PULSE 76; RESP 16; O2SAT 97
[2019-08-20] MEDS: Acetaminophen 650 MG/20 ML UDC GT (21:55)
[2019-08-21] MEDS: Enoxaparin 40 MG/0.4 ML Syringe SC (06:10)
[2019-08-21] MEDS: Propranolol 10 MG Tablet 20 MG PO ×3 (06:11→21:12)
[2019-08-21] MEDS: Menthol/Lanolin/Calamine/Znox 113 GM Tube 1 APPLIC TOPICAL ×3 (06:18→21:10)
[2019-08-21] MEDS: Nystatin Powder 15gm Bottle 1 APPLIC TOPICAL ×2 (06:21→21:10)
--- NOTE | 2019-08-21 14:57 | NURSING ---
Trach and peg tube care provided. Dressings changed. Inner-cannula changed.
[2019-08-21 15:12] VITALS: BP 121/70; PULSE 75; RESP 18; TEMP 36.8; O2SAT 98
[2019-08-21 20:56] VITALS: PULSE 93; O2SAT 97
[2019-08-21] MEDS: Acetaminophen 650 MG/20 ML UDC GT (21:11)
[2019-08-21] MEDS: tiZANidine HCl 2 MG Tablet PO (21:12)
[2019-08-21] MEDS: MELATONIN 10 MG TABLET 5 MG PO (21:12)
--- NOTE | 2019-08-21 22:21 | NURSING ---
Addendum entered by Sari Hamm 08/22/19 04:05: Rechecked residual at 00:00 hours. 10 mL received. Patient tolerated well. Original Note: 230 mL residual, placement verified, HS medications administered with 150 flush of sterile water. Jevity 1.5 bolus held d/t residual amount. HOB elevated at 30 degrees, bed lowered. RN notified of residual amount. Will Continue to monitor.
[2019-08-22] MEDS: Enoxaparin 40 MG/0.4 ML Syringe SC (06:54)
[2019-08-22] MEDS: Propranolol 10 MG Tablet 20 MG PO ×3 (06:54→21:21)
[2019-08-22] MEDS: Menthol/Lanolin/Calamine/Znox 113 GM Tube 1 APPLIC TOPICAL ×3 (07:00→21:19)
[2019-08-22] MEDS: Nystatin Powder 15gm Bottle 1 APPLIC TOPICAL ×2 (07:00→21:19)
[2019-08-22 14:30] VITALS: PULSE 76; RESP 18; O2SAT 98
--- NOTE | 2019-08-22 15:20 | NURSING ---
AT 1440 PT WAS COUGHING HARD WHEN THIS NURSE IN ROOM. REMOVED CAP ON TRACH SITE AND PT COUGHED UP A LARGE AMOUNT OF THICK,CREAMY IN COLOR SPUTUM. PT THEN HAD 2OO CC OF LIGHT BROWN EMESES. PT STARTED COUGHING AGAIN AND BROUGHT UP MORE SPUTUM. CLEANED TRACH SITE AND CHANGED DRESSING AND INTER CANNULA. PT SETTLED DOWN AND NOW IS RESTING COMFORTABLY. CALLED RESPIRATORY TO SEND UP NEW BLUE STRAPS FOR AROUND PT NECK THAT HOLDS TRACH IN PLACE DUE TO OLD STRAPS GETTING SOILED. VITALS WERE DONE BY EXTERNAL GRINDER TENDER,VITALS WITH IN NORMAL LIMITS. WILL CONTINUE TO MONITOR. REPORTED TO HELEN SAGE
[2019-08-22 15:37] VITALS: BP 113/76; PULSE 76; RESP 16; TEMP 36.8; O2SAT 99
--- NOTE | 2019-08-22 16:56 | NURSING ---
THIS NURSE CHANGED BLUE TRACH COLLAR STRAPS. PT COUGHED AND BROUGHT UP SMALL AMOUNT THICK,CREAMY IN COLOR SPUTUM.
[2019-08-22] MEDS: Acetaminophen 650 MG/20 ML UDC GT (21:22)
[2019-08-22] MEDS: tiZANidine HCl 2 MG Tablet PO (21:23)
[2019-08-22] MEDS: MELATONIN 10 MG TABLET 5 MG PO (21:23)
[2019-08-22] MEDS: Jevity 1.5. 1,000 ML Bottle 480 ML GT (21:24)
[2019-08-23] MEDS: Propranolol 10 MG Tablet 20 MG PO ×3 (06:45→20:53)
[2019-08-23] MEDS: Enoxaparin 40 MG/0.4 ML Syringe SC (06:45)
[2019-08-23] MEDS: Menthol/Lanolin/Calamine/Znox 113 GM Tube 1 APPLIC TOPICAL ×3 (06:54→21:15)
[2019-08-23] MEDS: Nystatin Powder 15gm Bottle 1 APPLIC TOPICAL ×2 (06:55→21:16)
[2019-08-23 14:13] VITALS: BP 113/64; PULSE 79; RESP 16; TEMP 37.1; O2SAT 97
[2019-08-23] MEDS: Acetaminophen 650 MG/20 ML UDC GT (20:53)
[2019-08-23] MEDS: MELATONIN 10 MG TABLET 5 MG PO (20:53)
[2019-08-23] MEDS: tiZANidine HCl 2 MG Tablet PO (20:53)
[2019-08-23] MEDS: Jevity 1.5. 1,000 ML Bottle 480 ML GT (21:15)
[2019-08-24] MEDS: Enoxaparin 40 MG/0.4 ML Syringe SC (04:13)
[2019-08-24] MEDS: Propranolol 10 MG Tablet 20 MG PO ×3 (04:13→21:42)
[2019-08-24] MEDS: Menthol/Lanolin/Calamine/Znox 113 GM Tube 1 APPLIC TOPICAL ×3 (04:22→21:44)
[2019-08-24] MEDS: Nystatin Powder 15gm Bottle 1 APPLIC TOPICAL ×2 (04:22→21:45)
[2019-08-24 10:00] VITALS: RESP 16
[2019-08-24 14:11] VITALS: BP 112/71; PULSE 100; RESP 18; TEMP 37; O2SAT 94
--- NOTE | 2019-08-24 14:30 | NURSING ---
Trach and peg care provided. Peg flushed. Inner canula changed. pt tolerated well.
[2019-08-24 21:41] VITALS: O2SAT 98
[2019-08-24] MEDS: MELATONIN 10 MG TABLET 5 MG PO (21:41)
[2019-08-24] MEDS: Acetaminophen 650 MG/20 ML UDC GT (21:41)
[2019-08-24] MEDS: tiZANidine HCl 2 MG Tablet PO (21:42)
[2019-08-24] MEDS: Jevity 1.5. 1,000 ML Bottle 480 ML GT (21:45)
[2019-08-25] MEDS: Enoxaparin 40 MG/0.4 ML Syringe SC (06:00)
[2019-08-25] MEDS: Menthol/Lanolin/Calamine/Znox 113 GM Tube 1 APPLIC TOPICAL ×3 (06:00→21:54)
[2019-08-25] MEDS: Propranolol 10 MG Tablet 20 MG PO ×3 (06:00→21:52)
[2019-08-25] MEDS: Nystatin Powder 15gm Bottle 1 APPLIC TOPICAL ×2 (06:01→21:54)
[2019-08-25 06:07] LABS: Absolute Lymphocyte Count 1.91 X10^3/uL (0.83-4.51); Absolute Neutrophil Count 2.9 X10^3/uL (2.0-7.7); Basophil# 0.07 X10^3/uL; Basophil% 1.2 % (0-1); Eosinophils% 1.8 % (0-5); Hematocrit 38.3 % (40-54); Hemoglobin 12.5 g/dL (13.0-16.5); Lymphocyte # 1.91 X10^3/ul (4.0); Mean Corp Hgb Conc 32.6 g/dL (32-36); Mean Corpuscular Hgb 26.6 pg (27.0-32.0); Mean Corpuscular Volume 81.5 fL (80-94); Mean Platelet Vol. 9.9 fl (6.2-12.0); Monocyte# 0.65 X10^3/uL; Monocyte% 11.6 % (0-10); NRBC Flagged by Analyzer 0 % (0-5); Neutrophil # 2.87 X10^3/uL (2.7-7.7); Neutrophil % 51.2 % (47-70); Platelet Count 272 K/mm3 (150-450); RBC Distribution Width CV 13.8 % (11.6-14.6); White Blood Count 5.6 K/mm3 (4.4-11.0)
[2019-08-25 06:24] LABS: Anion Gap 5 (5-15); BUN 14 mg/dL (7-18); BUN/Creat Ratio 18.9 RATIO (10-20); Calcium,Total 9.7 mg/dL (8.5-10.1); Chloride 106 mmol/L (98-107); Creatinine, Serum 0.74 mg/dL (0.70-1.30); EST Glomerular Filtration Rate 142 mL/min (>60); Est Glom Filt Rate - Afr Amer 171 mL/min (>60); Estimated Creatinine Clearance 138.92 ml/min; Glucose 96 mg/dL (74-106); Potassium 3.9 mmol/L (3.5-5.1); Sodium Level 139 mmol/L (136-145)
[2019-08-25] MEDS: Acetaminophen 650 MG/20 ML UDC GT ×2 (13:23→21:57)
[2019-08-25 16:00] VITALS: BP 125/71; PULSE 94; RESP 18; TEMP 36.7; O2SAT 92
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
[2019-08-25] MEDS: tiZANidine HCl 2 MG Tablet PO (21:51)
[2019-08-25] MEDS: MELATONIN 10 MG TABLET 5 MG PO (21:51)
[2019-08-25] MEDS: Jevity 1.5. 1,000 ML Bottle 480 ML GT (21:55)
[2019-08-26] MEDS: Menthol/Lanolin/Calamine/Znox 113 GM Tube 1 APPLIC TOPICAL ×3 (06:57→22:31)
[2019-08-26] MEDS: Propranolol 10 MG Tablet 20 MG PO ×3 (06:59→22:33)
[2019-08-26] MEDS: Enoxaparin 40 MG/0.4 ML Syringe SC (07:11)
[2019-08-26] MEDS: Nystatin Powder 15gm Bottle 1 APPLIC TOPICAL ×2 (07:23→22:52)
[2019-08-26] MEDS: Acetaminophen 650 MG/20 ML UDC GT ×3 (09:01→22:34)
[2019-08-26 10:45] VITALS: PULSE 78; RESP 18; O2SAT 97
--- NOTE | 2019-08-26 11:05 | NURSING ---
TRACH SITE CLEANED,NEW DRESSING AND INTER CANNULA CHANGED. PEG SITE DRESSING ALSO CHANGED.
--- NOTE | 2019-08-26 13:03 | NURSING ---
PT MOTHER CAME TO THIS NURSE AND STATED THAT THE PT WAS HAVING A HEADACHE AGAIN AND THE HEADACHES STARTED LAST NIGHT. PRN TYLENOL WAS GIVEN EARLIER BY THIS NURSE. THIS NURSE ASKED PT IF HIS HEAD WAS HURTING AGAIN,PT SHOCK HIS HEAD YES. APPLIED HEATING PAD TO NECK AND SHOULDERS. REPORTED TO HELEN VELÁSQUEZ
[2019-08-26 15:37] VITALS: BP 109/65; PULSE 85; RESP 16; TEMP 36.9; O2SAT 97
[2019-08-26] MEDS: Jevity 1.5. 1,000 ML Bottle 480 ML GT (22:30)
[2019-08-26] MEDS: MELATONIN 10 MG TABLET 5 MG PO (22:33)
[2019-08-26] MEDS: tiZANidine HCl 2 MG Tablet PO (22:34)
[2019-08-27] MEDS: Propranolol 10 MG Tablet 20 MG PO ×3 (06:01→21:52)
[2019-08-27] MEDS: Menthol/Lanolin/Calamine/Znox 113 GM Tube 1 APPLIC TOPICAL ×3 (06:01→22:14)
[2019-08-27] MEDS: Enoxaparin 40 MG/0.4 ML Syringe SC (06:01)
[2019-08-27] MEDS: Nystatin Powder 15gm Bottle 1 APPLIC TOPICAL ×2 (06:02→22:14)
--- NOTE | 2019-08-27 07:21 | ED.RN ---
Cleanse trach site and peg tube area applied new dressing. No concerns voiced at this time.
[2019-08-27] MEDS: Acetaminophen 650 MG/20 ML UDC GT ×2 (13:14→21:55)
--- NOTE | 2019-08-27 13:30 | NURSING ---
PT MOTHER STATED HE HAD A HEADACHE. THIS NURSE ASKED PT IF HE HAD A HEADACHE, PT SHOOK HIS HEAD YES. THIS NURSE ASKED PT TO POINT TO THE FACE ON THE BELL FACE SCALE. PT POINTED TO A 4. PRN TYLENOL GIVEN.
[2019-08-27 13:44] VITALS: BP 116/70; PULSE 92; RESP 17; TEMP 36.6; O2SAT 99
[2019-08-27] MEDS: traMADol 50 MG Tablet GT (18:05)
--- NOTE | 2019-08-27 18:17 | NURSING ---
PT STILL HAS HEADACHE. ASKED PT WHERE IT HURT PT STATED TOP OF HEAD. HAD PT POINT OUT HOW BAD PAIN WAS WITHE BELL FACE SCALE. PT POINTED TO A 3. PT FATHER ASKED IF I COULD ONLY GIVE HALF TAB OF ULTRAM. GOT OK FROM HELEN SAGE
[2019-08-27] MEDS: tiZANidine HCl 2 MG Tablet PO (21:52)
[2019-08-27] MEDS: MELATONIN 10 MG TABLET 5 MG PO (21:54)
[2019-08-27] MEDS: Jevity 1.5. 1,000 ML Bottle 480 ML GT (22:15)
[2019-08-28] MEDS: Enoxaparin 40 MG/0.4 ML Syringe SC (06:49)
[2019-08-28] MEDS: Propranolol 10 MG Tablet 20 MG PO ×3 (06:51→22:31)
[2019-08-28] MEDS: Nystatin Powder 15gm Bottle 1 APPLIC TOPICAL ×2 (06:55→22:29)
[2019-08-28] MEDS: Menthol/Lanolin/Calamine/Znox 113 GM Tube 1 APPLIC TOPICAL ×3 (06:56→22:28)
[2019-08-28 10:00] VITALS: PULSE 86; RESP 16; O2SAT 99
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
[2019-08-28 14:40] VITALS: BP 122/78; PULSE 76; RESP 17; TEMP 36.6; O2SAT 98
--- NOTE | 2019-08-28 18:58 | NURSING ---
Trach site cleaned, Trach and peg dressing changed. Inner canula changed.
[2019-08-28] MEDS: Acetaminophen 650 MG/20 ML UDC GT (22:29)
[2019-08-28] MEDS: MELATONIN 10 MG TABLET 5 MG PO (22:30)
[2019-08-28] MEDS: tiZANidine HCl 2 MG Tablet PO (22:30)
[2019-08-28] MEDS: Jevity 1.5. 1,000 ML Bottle 480 ML GT (22:38)
[2019-08-29] MEDS: Nystatin Powder 15gm Bottle 1 APPLIC TOPICAL ×2 (06:34→21:43)
[2019-08-29] MEDS: Menthol/Lanolin/Calamine/Znox 113 GM Tube 1 APPLIC TOPICAL ×3 (06:34→21:42)
[2019-08-29] MEDS: Propranolol 10 MG Tablet 20 MG PO ×3 (06:35→21:41)
[2019-08-29] MEDS: Enoxaparin 40 MG/0.4 ML Syringe SC (06:36)
[2019-08-29 14:33] VITALS: BP 120/68; PULSE 73; RESP 16; TEMP 36.8; O2SAT 97
[2019-08-29] MEDS: tiZANidine HCl 2 MG Tablet PO (21:41)
[2019-08-29] MEDS: MELATONIN 10 MG TABLET 5 MG PO (21:41)
[2019-08-29] MEDS: Jevity 1.5. 1,000 ML Bottle 480 ML GT (21:43)
[2019-08-29] MEDS: Acetaminophen 650 MG/20 ML UDC GT (21:43)
--- NOTE | 2019-08-29 23:57 | NURSING ---
Mother called nurse to the room pt vomiting. 200cc liquid barnes emesis noted. pt wiped up and gown changed dressing to trach site changed pt cleaned up. Patient was in high fowlers in bed when vomited remains this way and instructed mother to leave bed this way incase he does this again.
[2019-08-30] MEDS: Menthol/Lanolin/Calamine/Znox 113 GM Tube 1 APPLIC TOPICAL ×3 (05:57→20:24)
[2019-08-30] MEDS: Nystatin Powder 15gm Bottle 1 APPLIC TOPICAL ×2 (05:58→20:23)
[2019-08-30] MEDS: Propranolol 10 MG Tablet 20 MG PO ×3 (05:58→20:16)
[2019-08-30] MEDS: Enoxaparin 40 MG/0.4 ML Syringe SC (05:58)
[2019-08-30 11:46] VITALS: PULSE 88
--- NOTE | 2019-08-30 12:47 | NS ---
Rec discontinue HS feeding of 480 cc Jevity 1.5 and 150 cc H2O flush every 4 hours as res w/ stable wt and continued gradual wt gain and good PO intake at meals consuming 75-100% of meals. Rec 30 ml flush before and after administration of medications via GT. Continue regular diet, consistency per HOUSING CASE MANAGER. Will continue to provide ONS w/ meals for additional calories/protein if consumed. Rec continue ensure enlive 120 cc 3x/day w/ medpass d/t wt loss. If res PO intake at meals declines rec resume HS feeding to 480 cc Jevity 1.5 to provide ~ 700 seda / 31 gm pro/day with 150 cc H2O flush every 4 hours. Please contact clinical RDN w/ further questions at [phone]. Alix Cruz RDN, LD
[2019-08-30 14:34] VITALS: BP 118/68; PULSE 94; RESP 20; TEMP 36.4; O2SAT 96
[2019-08-30] MEDS: tiZANidine HCl 2 MG Tablet PO (20:15)
[2019-08-30] MEDS: MELATONIN 10 MG TABLET 5 MG PO (20:15)
[2019-08-30] MEDS: Acetaminophen 650 MG/20 ML UDC GT (20:15)
[2019-08-31 06:15] VITALS: PULSE 98; O2SAT 98
[2019-08-31] MEDS: Propranolol 10 MG Tablet 20 MG PO ×3 (06:46→21:27)
[2019-08-31] MEDS: Enoxaparin 40 MG/0.4 ML Syringe SC (06:46)
[2019-08-31] MEDS: Nystatin Powder 15gm Bottle 1 APPLIC TOPICAL ×2 (06:50→21:34)
[2019-08-31] MEDS: Menthol/Lanolin/Calamine/Znox 113 GM Tube 1 APPLIC TOPICAL ×3 (06:50→21:33)
--- NOTE | 2019-08-31 14:58 | NURSING ---
Addendum entered by Lisa Hallman 08/31/19 16:36: pt back w/dry drsg over trach site, pt decannulated by DR Vargas. Family very happy. Original Note: pt off unit to Dr Vargas's office regarding trach removal.
[2019-08-31 14:59] VITALS: BP 125/72; PULSE 84; RESP 24; TEMP 36.6; O2SAT 97
--- NOTE | 2019-08-31 17:58 | NURSING ---
Hand Trimmer recommended DC 480cc [facility] @ & sched water flushes. Dr Amaral updated, discontinued both.
[2019-08-31] MEDS: Acetaminophen 650 MG/20 ML UDC GT (21:27)
[2019-08-31] MEDS: MELATONIN 10 MG TABLET 5 MG PO (21:27)
[2019-08-31] MEDS: tiZANidine HCl 2 MG Tablet PO (21:28)
[2019-09-01] MEDS: Propranolol 10 MG Tablet 20 MG PO ×3 (06:41→20:41)
[2019-09-01] MEDS: Menthol/Lanolin/Calamine/Znox 113 GM Tube 1 APPLIC TOPICAL ×3 (06:42→20:41)
[2019-09-01] MEDS: Nystatin Powder 15gm Bottle 1 APPLIC TOPICAL ×2 (06:42→20:42)
[2019-09-01] MEDS: Enoxaparin 40 MG/0.4 ML Syringe SC (06:42)
[2019-09-01 10:00] VITALS: PULSE 75; RESP 16; O2SAT 98
[2019-09-01 14:50] VITALS: BP 107/48; PULSE 82; RESP 16; TEMP 36.6; O2SAT 99
[2019-09-01] MEDS: Acetaminophen 650 MG/20 ML UDC GT (20:40)
[2019-09-01] MEDS: MELATONIN 10 MG TABLET 5 MG PO (20:40)
[2019-09-01] MEDS: tiZANidine HCl 2 MG Tablet PO (20:41)
[2019-09-02] MEDS: Menthol/Lanolin/Calamine/Znox 113 GM Tube 1 APPLIC TOPICAL ×3 (06:17→21:51)
[2019-09-02] MEDS: Propranolol 10 MG Tablet 20 MG PO ×3 (06:17→21:45)
[2019-09-02] MEDS: Enoxaparin 40 MG/0.4 ML Syringe SC (06:17)
[2019-09-02] MEDS: Nystatin Powder 15gm Bottle 1 APPLIC TOPICAL ×2 (06:18→21:52)
[2019-09-02 14:37] VITALS: BP 118/71; PULSE 78; RESP 20; TEMP 36.8; O2SAT 98
[2019-09-02] MEDS: Acetaminophen 650 MG/20 ML UDC GT (21:45)
[2019-09-02] MEDS: MELATONIN 10 MG TABLET 5 MG PO (21:45)
[2019-09-02] MEDS: tiZANidine HCl 2 MG Tablet PO (21:46)
[2019-09-02 22:02] VITALS: PULSE 78; RESP 16; O2SAT 98
[2019-09-03] MEDS: Propranolol 10 MG Tablet 20 MG PO ×3 (06:03→21:12)
[2019-09-03] MEDS: Enoxaparin 40 MG/0.4 ML Syringe SC (06:03)
[2019-09-03] MEDS: Menthol/Lanolin/Calamine/Znox 113 GM Tube 1 APPLIC TOPICAL ×3 (06:13→21:12)
[2019-09-03] MEDS: Nystatin Powder 15gm Bottle 1 APPLIC TOPICAL ×2 (06:13→21:12)
[2019-09-03 06:28] VITALS: PULSE 78; RESP 16; O2SAT 97
[2019-09-03 14:14] VITALS: BP 115/68; PULSE 70; RESP 18; TEMP 37.1; O2SAT 97
[2019-09-03] MEDS: tiZANidine HCl 2 MG Tablet PO (21:13)
[2019-09-03] MEDS: Acetaminophen 650 MG/20 ML UDC GT (21:13)
[2019-09-03] MEDS: MELATONIN 10 MG TABLET 5 MG PO (21:13)
[2019-09-04] MEDS: Propranolol 10 MG Tablet 20 MG PO ×3 (06:08→21:19)
[2019-09-04] MEDS: Enoxaparin 40 MG/0.4 ML Syringe SC (06:10)
[2019-09-04] MEDS: Nystatin Powder 15gm Bottle 1 APPLIC TOPICAL ×2 (06:24→21:20)
[2019-09-04] MEDS: Menthol/Lanolin/Calamine/Znox 113 GM Tube 1 APPLIC TOPICAL ×3 (06:24→21:20)
[2019-09-04 10:30] VITALS: PULSE 83; RESP 16; O2SAT 99
[2019-09-04 13:58] VITALS: BP 110/47; PULSE 75; RESP 16; TEMP 37.1; O2SAT 99
[2019-09-04 21:11] VITALS: BP 110/68; PULSE 65; RESP 14; O2SAT 96
[2019-09-04] MEDS: Acetaminophen 650 MG/20 ML UDC GT (21:13)
[2019-09-04] MEDS: tiZANidine HCl 2 MG Tablet PO (21:19)
[2019-09-04] MEDS: MELATONIN 10 MG TABLET 5 MG PO (21:19)
--- NOTE | 2019-09-04 21:30 | NURSING ---
Pt given HS medications. no further needs identified at this time. Riana CERVANTES
[2019-09-05 06:36] VITALS: BP 113/63; PULSE 66
[2019-09-05] MEDS: Enoxaparin 40 MG/0.4 ML Syringe SC (06:37)
[2019-09-05] MEDS: Propranolol 10 MG Tablet 20 MG PO ×3 (06:39→21:46)
[2019-09-05] MEDS: Nystatin Powder 15gm Bottle 1 APPLIC TOPICAL ×2 (06:43→22:10)
[2019-09-05] MEDS: Menthol/Lanolin/Calamine/Znox 113 GM Tube 1 APPLIC TOPICAL ×3 (06:43→22:11)
--- NOTE | 2019-09-05 09:14 | NURSING ---
Post decannulation site dressing changed. Wound appearance red granulation, well approximated, no drainge noted. Cleansed with sterile water, DSD applied and secured with tape.
[2019-09-05 13:56] VITALS: BP 115/58; PULSE 76; RESP 16; TEMP 36.8; O2SAT 98
[2019-09-05] MEDS: MELATONIN 10 MG TABLET 5 MG PO (21:45)
[2019-09-05] MEDS: Acetaminophen 650 MG/20 ML UDC GT (21:46)
[2019-09-05] MEDS: tiZANidine HCl 2 MG Tablet PO (21:47)
[2019-09-05 22:10] VITALS: PULSE 63; RESP 16; O2SAT 98
[2019-09-06] MEDS: Propranolol 10 MG Tablet 20 MG PO ×3 (07:03→20:07)
[2019-09-06] MEDS: Enoxaparin 40 MG/0.4 ML Syringe SC (07:03)
[2019-09-06] MEDS: Menthol/Lanolin/Calamine/Znox 113 GM Tube 1 APPLIC TOPICAL ×3 (07:06→20:24)
[2019-09-06] MEDS: Nystatin Powder 15gm Bottle 1 APPLIC TOPICAL ×2 (07:06→20:23)
[2019-09-06 10:00] VITALS: PULSE 78; RESP 16; O2SAT 98
[2019-09-06 13:59] VITALS: BP 105/50; PULSE 71; RESP 17; TEMP 36.8; O2SAT 98
[2019-09-06] MEDS: MELATONIN 10 MG TABLET 5 MG PO (20:07)
[2019-09-06] MEDS: tiZANidine HCl 2 MG Tablet PO (20:08)
[2019-09-06] MEDS: Acetaminophen 650 MG/20 ML UDC GT (20:08)
[2019-09-07] MEDS: Nystatin Powder 15gm Bottle 1 APPLIC TOPICAL ×2 (06:26→21:46)
[2019-09-07] MEDS: Menthol/Lanolin/Calamine/Znox 113 GM Tube 1 APPLIC TOPICAL ×3 (06:26→21:45)
[2019-09-07] MEDS: Enoxaparin 40 MG/0.4 ML Syringe SC (06:27)
[2019-09-07] MEDS: Propranolol 10 MG Tablet 20 MG PO ×3 (06:27→21:46)
--- NOTE | 2019-09-07 10:32 | NURSING ---
THIS NURSE AT 8AM CLEANED AREA AND REPLACED PT DRESSING TO NECK DUE TO PT PULLED OLD OFF. REPORTED TO HELEN SAGE
[2019-09-07 15:02] VITALS: BP 116/69; PULSE 67; RESP 20; TEMP 37; O2SAT 99
[2019-09-07 21:30] VITALS: PULSE 56; RESP 16; O2SAT 95
[2019-09-07] MEDS: Acetaminophen 650 MG/20 ML UDC GT (21:45)
[2019-09-07] MEDS: MELATONIN 10 MG TABLET 5 MG PO (21:46)
[2019-09-07] MEDS: tiZANidine HCl 2 MG Tablet PO (21:47)
[2019-09-08 06:00] VITALS: BP 100/54; PULSE 56; RESP 16; TEMP 36.5; O2SAT 95
[2019-09-08] MEDS: Enoxaparin 40 MG/0.4 ML Syringe SC (06:08)
[2019-09-08] MEDS: Propranolol 10 MG Tablet 20 MG PO ×3 (06:09→20:39)
[2019-09-08] MEDS: Nystatin Powder 15gm Bottle 1 APPLIC TOPICAL ×2 (06:09→20:45)
[2019-09-08] MEDS: Menthol/Lanolin/Calamine/Znox 113 GM Tube 1 APPLIC TOPICAL ×3 (06:09→20:45)
[2019-09-08 15:48] VITALS: BP 114/58; PULSE 72; RESP 16; TEMP 36.9; O2SAT 98
[2019-09-08 20:30] VITALS: PULSE 75; O2SAT 97
[2019-09-08] MEDS: Acetaminophen 650 MG/20 ML UDC GT (20:36)
[2019-09-08] MEDS: tiZANidine HCl 2 MG Tablet PO (20:40)
[2019-09-08] MEDS: MELATONIN 10 MG TABLET 5 MG PO (20:41)
[2019-09-09] MEDS: Enoxaparin 40 MG/0.4 ML Syringe SC (06:44)
[2019-09-09] MEDS: Propranolol 10 MG Tablet 20 MG PO ×3 (06:44→21:16)
[2019-09-09] MEDS: Menthol/Lanolin/Calamine/Znox 113 GM Tube 1 APPLIC TOPICAL ×3 (06:44→21:18)
[2019-09-09] MEDS: Nystatin Powder 15gm Bottle 1 APPLIC TOPICAL ×2 (06:45→21:18)
[2019-09-09 08:28] VITALS: PULSE 80
[2019-09-09 14:30] VITALS: BP 103/58; PULSE 78; RESP 16; TEMP 36.7; O2SAT 98
[2019-09-09] MEDS: MELATONIN 10 MG TABLET 5 MG PO (21:16)
[2019-09-09] MEDS: tiZANidine HCl 2 MG Tablet PO (21:16)
[2019-09-09] MEDS: Acetaminophen 650 MG/20 ML UDC GT (21:17)
[2019-09-10] MEDS: Nystatin Powder 15gm Bottle 1 APPLIC TOPICAL ×2 (06:34→22:17)
[2019-09-10] MEDS: Enoxaparin 40 MG/0.4 ML Syringe SC (06:34)
[2019-09-10] MEDS: Menthol/Lanolin/Calamine/Znox 113 GM Tube 1 APPLIC TOPICAL ×3 (06:34→22:15)
[2019-09-10] MEDS: Propranolol 10 MG Tablet 20 MG PO ×3 (06:35→22:15)
[2019-09-10 14:43] VITALS: BP 110/61; PULSE 59; RESP 18; TEMP 36.1; O2SAT 98
[2019-09-10 22:16] VITALS: PULSE 70; RESP 16; O2SAT 98
[2019-09-10] MEDS: MELATONIN 10 MG TABLET 5 MG PO (22:16)
[2019-09-10] MEDS: tiZANidine HCl 2 MG Tablet PO (22:16)
[2019-09-10] MEDS: Acetaminophen 650 MG/20 ML UDC GT (22:16)
[2019-09-11] MEDS: Propranolol 10 MG Tablet 20 MG PO ×3 (06:25→20:52)
[2019-09-11] MEDS: Enoxaparin 40 MG/0.4 ML Syringe SC (06:26)
[2019-09-11] MEDS: Menthol/Lanolin/Calamine/Znox 113 GM Tube 1 APPLIC TOPICAL ×3 (06:36→20:55)
[2019-09-11] MEDS: Nystatin Powder 15gm Bottle 1 APPLIC TOPICAL ×2 (06:36→20:55)
[2019-09-11 16:00] VITALS: BP 109/62; PULSE 64; RESP 16; TEMP 36.9; O2SAT 98
[2019-09-11] MEDS: Acetaminophen 650 MG/20 ML UDC GT (20:52)
[2019-09-11] MEDS: MELATONIN 10 MG TABLET 5 MG PO (20:53)
[2019-09-11] MEDS: tiZANidine HCl 2 MG Tablet PO (20:54)
[2019-09-11 20:55] VITALS: PULSE 71; RESP 16; O2SAT 97
[2019-09-12] MEDS: Enoxaparin 40 MG/0.4 ML Syringe SC (07:00)
[2019-09-12] MEDS: Propranolol 10 MG Tablet 20 MG PO ×3 (07:00→21:03)
[2019-09-12] MEDS: Menthol/Lanolin/Calamine/Znox 113 GM Tube 1 APPLIC TOPICAL ×3 (07:06→21:05)
[2019-09-12] MEDS: Nystatin Powder 15gm Bottle 1 APPLIC TOPICAL ×2 (07:06→21:05)
--- NOTE | 2019-09-12 07:14 | NURSING ---
Per mother request given pills whole with water. Pt tolerated well. Mother states, therapy was in the room one morning when pt was been given medication whole with water. States Edna the therapist said pt looks like he's tolerating taking pills whole she didn't see why he couldn't take them that way. Rn made aware.
[2019-09-12] MEDS: Acetaminophen 325 MG Tablet 650 MG PO ×2 (11:12→21:04)
[2019-09-12 14:38] VITALS: BP 108/55; PULSE 67; RESP 16; TEMP 37.1; O2SAT 97
[2019-09-12 15:07] VITALS: PULSE 67; RESP 16; O2SAT 97
[2019-09-12] MEDS: tiZANidine HCl 2 MG Tablet PO (21:03)
[2019-09-12] MEDS: MELATONIN 10 MG TABLET 5 MG PO (21:03)
[2019-09-13] MEDS: Menthol/Lanolin/Calamine/Znox 113 GM Tube 1 APPLIC TOPICAL ×3 (06:43→21:29)
[2019-09-13] MEDS: Enoxaparin 40 MG/0.4 ML Syringe SC (06:44)
[2019-09-13] MEDS: Propranolol 10 MG Tablet 20 MG PO ×3 (06:44→21:30)
[2019-09-13] MEDS: Nystatin Powder 15gm Bottle 1 APPLIC TOPICAL ×2 (06:44→21:34)
[2019-09-13 14:55] VITALS: BP 107/52; PULSE 77; RESP 16; TEMP 37.2; O2SAT 98
[2019-09-13 21:30] VITALS: RESP 16
[2019-09-13] MEDS: Acetaminophen 325 MG Tablet 650 MG PO (21:30)
[2019-09-13] MEDS: MELATONIN 10 MG TABLET 5 MG PO (21:30)
[2019-09-13] MEDS: tiZANidine HCl 2 MG Tablet PO (21:30)
[2019-09-14] MEDS: Propranolol 10 MG Tablet 20 MG PO ×3 (06:34→20:56)
[2019-09-14] MEDS: Enoxaparin 40 MG/0.4 ML Syringe SC (06:35)
[2019-09-14] MEDS: Nystatin Powder 15gm Bottle 1 APPLIC TOPICAL ×2 (06:39→21:04)
[2019-09-14] MEDS: Menthol/Lanolin/Calamine/Znox 113 GM Tube 1 APPLIC TOPICAL ×3 (06:39→21:03)
[2019-09-14 10:00] VITALS: PULSE 70; RESP 16; O2SAT 98
--- NOTE | 2019-09-14 10:49 | CASEMGMT ---
Social Work IDT met with pt, pt mother and father for care plan meeting. Pt on [facility] soft, thin liquid diet with built up utensils, getting ensure and magic cups at meals. Pt is eating well and gaining weight. PT/OT working with pt to walk with walker-mod assist, cues for keeping foot flat and normalizing gait. Pt doing 5 steps with 2 HR, family helping with transfers. ST working on verbal expressions and spontaneous speech with cues, pt's yes/no answers are accurate but inconsistent with harder questions. SW discussed helping pt with DC plans once pt ready to go home. Pt goals to go home. Discussed family wishing to have feeding tube removed before DC. Pt has appointment in [place] 09/15, possible schedule of surgery. [facility] v OP therapy discussed, therapy recommending OP therapy. Lacey Oleary, social work chemical engineering intern Cornelia Leal, BANQUET STEWARDESS KNOWLEDGE MANAGER
[2019-09-14] MEDS: Acetaminophen 325 MG Tablet 650 MG PO ×2 (14:50→20:57)
[2019-09-14 16:00] VITALS: BP 104/53; PULSE 72; RESP 18; TEMP 36.9; O2SAT 99
[2019-09-14] MEDS: tiZANidine HCl 2 MG Tablet PO (20:57)
[2019-09-14] MEDS: MELATONIN 10 MG TABLET 5 MG PO (20:57)
[2019-09-15] MEDS: Enoxaparin 40 MG/0.4 ML Syringe SC (06:18)
[2019-09-15] MEDS: Propranolol 10 MG Tablet 20 MG PO ×3 (06:18→21:05)
[2019-09-15] MEDS: Nystatin Powder 15gm Bottle 1 APPLIC TOPICAL ×2 (06:19→21:19)
[2019-09-15] MEDS: Menthol/Lanolin/Calamine/Znox 113 GM Tube 1 APPLIC TOPICAL ×3 (06:19→21:18)
[2019-09-15 06:30] VITALS: PULSE 74; O2SAT 98
--- NOTE | 2019-09-15 10:49 | PCM.PN.RX ---
<Michelle Medina - Last Filed: 09/15/19 10:49> Progress Note - Pharmacy Subjective: T[facility] August Note Objective: Allergies No Known Allergies Allergy (Verified 07/12/19 06:19) Current Medications Generic Name Dose Route Start Last Admin Trade Name Freq PRN Reason Stop Dose Admin Acetaminophen 650 mg 09/12/19 22:00 09/14/19 20:57 Tylenol PO 650 mg QHS MIGUEL ÁNGEL Administration Acetaminophen 650 mg 09/12/19 01:40 09/14/19 14:50 Tylenol PO 650 mg Q6H PRN PRN Administration Pain Score 1-04/30 Albuterol Sulfate 2.5 mg 08/17/19 08:22 Ventolin Aerosols INHALATION Q2H PRN PRN WHEEZING Bisacodyl 10 mg 06/30/19 15:19 Dulcolax RECTAL DAILY PRN Constipation Calamine/Phenol 1 applic 06/30/19 22:00 09/15/19 06:19 Calmoseptine Ointment TOPICAL 1 applicatio TID [facility] Administration Protocol Enoxaparin Sodium 40 mg 07/01/19 06:00 09/15/19 06:18 Lovenox SC 40 mg DAILY@0600 [facility] Administration Guaifenesin 10 ml 07/27/19 08:22 Robitussin GT Q4H PRN PRN secretions Loperamide HCl 2 mg 06/30/19 15:19 Imodium Liquid GT Q4H PRN PRN Diarrhea Melatonin 5 mg 06/30/19 22:00 09/14/19 20:57 Melatonin PO 5 mg QHS MIGUEL ÁNGEL Administration Multi-Ingredient Cream 1 applic 07/15/19 22:00 09/15/19 06:21 Eucerin TOPICAL 1 applicatio 599,2199 [facility] Administration Protocol Nutritional Formula (Lactose Free) 120 ml 08/20/19 08:00 09/15/19 07:49 Ensure Enlive PO Not Given 0800,1200,1700 [facility] Nystatin 1 applic 07/11/19 22:00 09/15/19 06:19 Mycostatin Powder TOPICAL 1 applicatio 599,2199 [facility] Administration Protocol Propranolol HCl 20 mg 08/18/19 22:00 09/15/19 06:18 Inderal PO 20 mg TID MIGUEL ÁNGEL Administration Tizanidine HCl 2 mg 08/18/19 20:00 09/14/19 20:57 Zanaflex PO 2 mg QHS@1999 [facility] Administration Tramadol HCl 50 mg 08/26/19 17:24 08/27/19 18:05 Ultram GT 25 mg Q6H PRN PRN Administration headache Problem List (Last Reviewed 06/24/19 @ 12:[address] Lisa Daly, DO) Debility (Acute) Scalp laceration (Chronic) Insomnia (Chronic) Vital Signs Temp Pulse Resp BP Pulse Ox 98.4 F 74 18 104/53 L 98 09/14/19 16:00 09/15/19 06:30 09/14/19 16:00 09/14/19 16:00 09/15/19 06:30 Oxygen Flow Rate (L/min) 6 Oxygen Delivery Method Room Air Weight: 64.416 kg Body Mass Index (BMI) 22.1 Finger Stick Blood Glucose 151 Sodium 139 mmol/L (136-145) 08/25/19 05:43 Potassium 3.9 mmol/L (3.5-5.1) 08/25/19 05:43 Chloride 106 mmol/L (98-107) 08/25/19 05:43 Carbon Dioxide 28.0 mmol/L (21.0-32.0) 08/25/19 05:43 Anion Gap 5 (5-15) 08/25/19 05:43 BUN 14 mg/dL (7-18) 08/25/19 05:43 Creatinine 0.74 mg/dL (0.70-1.30) 08/25/19 05:43 Est GFR (MDRD) Af Amer 171 mL/min (>60) 08/25/19 05:43 Est GFR (MDRD) Non-Af 142 mL/min (>60) 08/25/19 05:43 BUN/Creatinine Ratio 18.9 RATIO (10-20) 08/25/19 05:43 Glucose 96 mg/dL (74-106) 08/25/19 05:43 Assessment/Plan: 1. Pain: Acetaminophen 650mg PO QHS, acetaminophen 650mg PO Q6H PRN Pain 1-04/30. Please continue to monitor PRN usage, S/S of increased or decreased pain 2. DVT prophylaxis: Lovenox 40mg SC daily. Please continue to monitor renal function, S/S bleeding and/or bruising 3. Insomnia - Melatonin 5mg PO QHS. Please continue to monitor for medication effectiveness. 4. Tachycardia - Propranolol 20mg PO TID. Please continue to monitor pulse, BP, medication effectiveness 6. Muscle spasm - Tizanidine 2mg PO QHS. Please continue to monitor patient for continued spasms, medication effectiveness 7. Wheezing/congestion: Robitussin 10mL PO Q4H PRN, Albuterol 1 inhalation Q2H PRN wheezing. Please continue to monitor for medication effectiveness, PRN usage. 8. Headache: Tramadol 50mg PO Q6H PRN headache. Please continue to monitor for headache and PRN usage. Psychotropic Medications: None Unnecessary Medications: None Bowel Regimen: Imodium 2mg PO Q4H PRN diarrhea, Dulcolax 10mg DE daily PRN constipation. Please continue to monitor patient's bowel status, amount of bowel movements/diarrhea. Date of Note:: 09/15/19 - Provider Comments Provider responsibility: Provider responsible to enter orders to implement recommendations <Joe Amaral Chi - Last Filed: 09/15/19 17:27> Progress Note - Pharmacy Subjective: [] Objective: Allergies No Known Allergies Allergy (Verified 07/12/19 06:19) Current Medications Generic Name Dose Route Start Last Admin Trade Name Freq PRN Reason Stop Dose Admin Acetaminophen 650 mg 09/12/19 22:00 09/14/19 20:57 Tylenol PO 650 mg QHS MIGUEL ÁNGLE Administration Acetaminophen 650 mg 09/12/19 01:40 09/14/19 14:50 Tylenol PO 650 mg Q6H PRN PRN Administration Pain Score 1-10/10 Albuterol Sulfate 2.5 mg 08/17/19 08:22 Ventolin Aerosols INHALATION Q2H PRN PRN WHEEZING Bisacodyl 10 mg 06/30/19 15:19 Dulcolax RECTAL DAILY PRN Constipation Calamine/Phenol 1 applic 06/30/19 22:00 09/15/19 14:28 Calmoseptine Ointment TOPICAL 1 applicatio TID [facility] Administration Protocol Enoxaparin Sodium 40 mg 07/01/19 06:00 09/15/19 06:18 Lovenox SC 40 mg DAILY@0600 [facility] Administration Guaifenesin 10 ml 09/15/19 11:15 Robitussin PO Q4H PRN PRN secretions Loperamide HCl 2 mg 09/15/19 11:15 Imodium Liquid PO Q4H PRN PRN Diarrhea Melatonin 5 mg 06/30/19 22:00 09/14/19 20:57 Melatonin PO 5 mg QHS [facility] Administration Multi-Ingredient Cream 1 applic 07/15/19 22:00 09/15/19 06:21 Eucerin TOPICAL 1 applicatio 06,2200 [facility] Administration Protocol Nutritional Formula (Lactose Free) 120 ml 08/20/19 08:00 09/15/19 11:28 Ensure Enlive PO Not Given 0800,1200,1700 [facility] Nystatin 1 applic 07/11/19 22:00 09/15/19 06:19 Mycostatin Powder TOPICAL 1 applicatio 0600,2200 [facility] Administration Protocol Propranolol HCl 20 mg 08/18/19 22:00 09/15/19 14:26 Inderal PO 20 mg TID [facility] Administration Tizanidine HCl 2 mg 08/18/19 20:00 09/14/19 20:57 Zanaflex PO 2 mg QHS@2000 [facility] Administration Tramadol HCl 50 mg 09/15/19 11:15 Ultram PO Q6H PRN PRN headache Problem List (Last Reviewed 06/24/19 @ 12:[address] Lisa Daly DO) Debility (Acute) Scalp laceration (Chronic) Insomnia (Chronic) Vital Signs Temp Pulse Resp BP Pulse Ox 98.6 F 78 16 111/43 L 98 09/15/19 14:45 09/15/19 14:45 09/15/19 14:45 09/15/19 14:45 09/15/19 14:45 Oxygen Flow Rate (L/min) 6 Oxygen Delivery Method Room Air Weight: 65.431 kg Body Mass Index (BMI) 22.1 Finger Stick Blood Glucose 151 Sodium 139 mmol/L (136-145) 08/25/19 05:43 Potassium 3.9 mmol/L (3.5-5.1) 08/25/19 05:43 Chloride 106 mmol/L (98-107) 08/25/19 05:43 Carbon Dioxide 28.0 mmol/L (21.0-32.0) 08/25/19 05:43 Anion Gap 5 (5-15) 08/25/19 05:43 BUN 14 mg/dL (7-18) 08/25/19 05:43 Creatinine 0.74 mg/dL (0.70-1.30) 08/25/19 05:43 Est GFR (MDRD) Af Amer 171 mL/min (>60) 08/25/19 05:43 Est GFR (MDRD) Non-Af 142 mL/min (>60) 08/25/19 05:43 BUN/Creatinine Ratio 18.9 RATIO (10-20) 08/25/19 05:43 Glucose 96 mg/dL (74-106) 08/25/19 05:43 Assessment/Plan: Psychotropic Medications: Unnecessary Medications: Bowel Regimen: - Provider Comments Provider responsibility: Provider responsible to enter orders to implement recommendations Provider Comments to Recommendations by Pharmacy: Agree
--- NOTE | 2019-09-15 11:49 | NURSING ---
Received call from neurology office. they are planning on setting date for surgery in the future. Family requested preop workup be down at [facility]. Office will fax orders to transitional care unit. Results can be faxed back to: [phone]
[2019-09-15 14:45] VITALS: BP 111/43; PULSE 78; RESP 16; TEMP 37; O2SAT 98
[2019-09-15] MEDS: tiZANidine HCl 2 MG Tablet PO (21:06)
[2019-09-15] MEDS: MELATONIN 10 MG TABLET 5 MG PO (21:06)
[2019-09-15] MEDS: Acetaminophen 325 MG Tablet 650 MG PO (21:06)
[2019-09-16] MEDS: Menthol/Lanolin/Calamine/Znox 113 GM Tube 1 APPLIC TOPICAL ×3 (06:41→21:24)
[2019-09-16] MEDS: Propranolol 10 MG Tablet 20 MG PO ×3 (06:41→21:23)
[2019-09-16] MEDS: Enoxaparin 40 MG/0.4 ML Syringe SC (06:41)
[2019-09-16] MEDS: Nystatin Powder 15gm Bottle 1 APPLIC TOPICAL ×2 (06:42→21:25)
--- NOTE | 2019-09-16 07:39 | NURSING ---
PULLED PT PEG TUBE AT 0730 AM THIS MORNING. STATED TO FAMILY AND THIS NURSE FOR PT TO EAT LIGHTLY FOR 24-48 HOURS TILL PEG HOLE STARTS TO CLOSE. PER DRESSING ORDERS TO CLEAN AND CHANGE DAILY AND PRN. REPORTED TO HELEN VELÁSQUEZ
--- NOTE | 2019-09-16 08:10 | PN.SURG_ITS ---
Patient Problems: Active and Suspected Problems (Last Reviewed 06/24/19 @ 12:[address] Lisa Daly DO) Debility (Acute) Subjective: Patient is doing well and had his tracheostomy removed. - Physical Exam Vitals/I&O's: Vital Signs Temp Pulse Resp BP Pulse Ox 98.6 F 78 16 111/43 L 98 09/15/19 14:45 09/15/19 14:45 09/15/19 14:45 09/15/19 14:45 09/15/19 14:45 Oxygen Flow Rate (L/min) 6 Oxygen Delivery Method Room Air Weight: 144 lb 4 oz Body Mass Index (BMI) 22.1 Finger Stick Blood Glucose 151 Intake and Output for Last 24 Hours 09/14/19 09/15/19 09/16/19 23:59 23:59 23:59 Intake Total 630 / 630 300 / 300 Balance 630 / 630 300 / 300 General: Alert, Oriented x3 Lungs: Normal air movement Abdomen: Soft, Non Tender, Non-Distended Current Medications Acetaminophen (Tylenol) 650 mg PO QHS [facility] Last Admin: 09/15/19 21:06 Dose: 650 mg Documented by: Acetaminophen (Tylenol) 650 mg PO Q6H PRN PRN PRN Reason: Pain Score 1-10/10 Last Admin: 09/14/19 14:50 Dose: 650 mg Documented by: Albuterol Sulfate (Ventolin Aerosols) 2.5 mg INHALATION Q2H PRN PRN PRN Reason: WHEEZING Bisacodyl (Dulcolax) 10 mg RECTAL DAILY PRN PRN Reason: Constipation Calamine/Phenol (Calmoseptine Ointment) 1 applic TOPICAL TID [facility]; Protocol Last Admin: 09/16/19 06:41 Dose: 1 applicatio Documented by: Enoxaparin Sodium (Lovenox) 40 mg SC DAILY@0600 [facility] Last Admin: 09/16/19 06:41 Dose: 40 mg Documented by: Guaifenesin (Robitussin) 10 ml PO Q4H PRN PRN PRN Reason: secretions Loperamide HCl (Imodium Liquid) 2 mg PO Q4H PRN PRN PRN Reason: Diarrhea Melatonin (Melatonin) 5 mg PO QHS [facility] Last Admin: 09/15/19 21:06 Dose: 5 mg Documented by: Multi-Ingredient Cream (Eucerin) 1 applic TOPICAL 0600,2200 [facility]; Protocol Last Admin: 09/16/19 06:42 Dose: 1 applicatio Documented by: Nutritional Formula (Lactose Free) (Ensure Enlive) 120 ml PO 0800,1200,1700 [facility] Last Admin: 09/16/19 07:50 Dose: Not Given Documented by: Nystatin (Mycostatin Powder) 1 applic TOPICAL 0600,2200 [facility]; Protocol Last Admin: 09/16/19 06:42 Dose: 1 applicatio Documented by: Propranolol HCl (Inderal) 20 mg PO TID [facility] Last Admin: 09/16/19 06:41 Dose: 20 mg Documented by: Tizanidine HCl (Zanaflex) 2 mg PO QHS@1999 [facility] Last Admin: 09/15/19 21:06 Dose: 2 mg Documented by: Tramadol HCl (Ultram) 50 mg PO Q6H PRN PRN PRN Reason: headache Medical Necessity - Tobacco Use Smoking Status: Never smoker Tobacco Use: Non-smoker Assessment/Plan All Active Problems (Last Reviewed 06/24/19 @ 12:[address] Lisa Daly DO) Left subdural hematoma (Acute) Aspiration pneumonia (Resolved) Chronic respiratory failure with hypoxia (Resolved) Hypernatremia (Resolved) Acute blood loss anemia (Acute) Debility (Acute) 19-year-old male with feeding tube 1. The patient passed a swallow study and I was consulted to remove the feeding tube. I removed the feeding tube at the bedside this morning. Patient tolerated the procedure well. Continue dry sterile dressings as needed until the wound is healed. Please call with any questions or concerns. Kiko Miller MD Pager: [facility] [address] [place] [address], [address] [place] [address] Office:
--- NOTE | 2019-09-16 09:26 | NURSING ---
SITE CLEANED AND DRESSING CHANGED DUE TO LARGE DRAINAGE OF BLOOD FROM PULLING OUT PEG TUBE TODAY. RN AWARE.
[2019-09-16 10:00] VITALS: PULSE 68; RESP 16; O2SAT 98
[2019-09-16 13:56] VITALS: BP 110/67; PULSE 68; RESP 18; TEMP 36.5; O2SAT 99
--- NOTE | 2019-09-16 14:03 | NURSING ---
Contacted Dr Mims's office questioning when Lovenox should be d/c'd. This nurse was informed by Kathie maintenance analyst, that Dr. Mims stated that stopping lovenox 24 hours before surgery was sufficient. Order repeated back.
[2019-09-16] MEDS: MELATONIN 10 MG TABLET 5 MG PO (21:23)
[2019-09-16] MEDS: Acetaminophen 325 MG Tablet 650 MG PO (21:23)
[2019-09-16] MEDS: tiZANidine HCl 2 MG Tablet PO (21:23)
[2019-09-17] MEDS: Propranolol 10 MG Tablet 20 MG PO ×3 (06:14→21:02)
[2019-09-17] MEDS: Menthol/Lanolin/Calamine/Znox 113 GM Tube 1 APPLIC TOPICAL ×3 (06:16→21:08)
[2019-09-17] MEDS: Enoxaparin 40 MG/0.4 ML Syringe SC (06:16)
[2019-09-17] MEDS: Nystatin Powder 15gm Bottle 1 APPLIC TOPICAL ×2 (06:23→21:08)
[2019-09-17 06:34] VITALS: PULSE 72; RESP 16; O2SAT 97
[2019-09-17 15:22] VITALS: BP 101/54; PULSE 61; RESP 18; TEMP 36.9; O2SAT 99
[2019-09-17] MEDS: Acetaminophen 325 MG Tablet 650 MG PO (21:02)
[2019-09-17] MEDS: tiZANidine HCl 2 MG Tablet PO (21:02)
[2019-09-17] MEDS: MELATONIN 10 MG TABLET 5 MG PO (21:03)
[2019-09-18] MEDS: Menthol/Lanolin/Calamine/Znox 113 GM Tube 1 APPLIC TOPICAL ×3 (06:31→21:15)
[2019-09-18] MEDS: Nystatin Powder 15gm Bottle 1 APPLIC TOPICAL ×2 (06:31→21:15)
[2019-09-18] MEDS: Propranolol 10 MG Tablet 20 MG PO ×3 (06:32→21:09)
[2019-09-18] MEDS: Enoxaparin 40 MG/0.4 ML Syringe SC (06:33)
[2019-09-18 11:30] VITALS: PULSE 67; RESP 16; O2SAT 99
[2019-09-18 15:45] VITALS: BP 101/53; PULSE 60; RESP 14; TEMP 37; O2SAT 99
[2019-09-18] MEDS: tiZANidine HCl 2 MG Tablet PO (21:09)
[2019-09-18] MEDS: Acetaminophen 325 MG Tablet 650 MG PO (21:09)
[2019-09-18] MEDS: MELATONIN 10 MG TABLET 5 MG PO (21:10)
[2019-09-19] MEDS: Enoxaparin 40 MG/0.4 ML Syringe SC (06:51)
[2019-09-19] MEDS: Propranolol 10 MG Tablet 20 MG PO ×3 (06:51→20:07)
[2019-09-19] MEDS: Menthol/Lanolin/Calamine/Znox 113 GM Tube 1 APPLIC TOPICAL ×3 (06:57→20:03)
[2019-09-19] MEDS: Nystatin Powder 15gm Bottle 1 APPLIC TOPICAL ×2 (06:58→20:02)
[2019-09-19 14:08] VITALS: BP 104/57; PULSE 61; RESP 16; TEMP 37.1; O2SAT 97
[2019-09-19 20:00] VITALS: PULSE 71; O2SAT 98
[2019-09-19] MEDS: tiZANidine HCl 2 MG Tablet PO (20:07)
[2019-09-19] MEDS: MELATONIN 10 MG TABLET 5 MG PO (20:07)
[2019-09-19] MEDS: Acetaminophen 325 MG Tablet 650 MG PO (20:08)
[2019-09-20] MEDS: Menthol/Lanolin/Calamine/Znox 113 GM Tube 1 APPLIC TOPICAL ×3 (06:46→20:03)
[2019-09-20] MEDS: Nystatin Powder 15gm Bottle 1 APPLIC TOPICAL ×2 (06:46→20:03)
[2019-09-20] MEDS: Propranolol 10 MG Tablet 20 MG PO ×3 (06:47→20:04)
[2019-09-20] MEDS: Enoxaparin 40 MG/0.4 ML Syringe SC (06:47)
[2019-09-20 14:12] VITALS: BP 98/53; PULSE 78; RESP 16; TEMP 36.8; O2SAT 100
[2019-09-20] MEDS: tiZANidine HCl 2 MG Tablet PO (20:03)
[2019-09-20] MEDS: MELATONIN 10 MG TABLET 5 MG PO (20:04)
[2019-09-20] MEDS: Acetaminophen 325 MG Tablet 650 MG PO (20:04)
[2019-09-21] MEDS: Nystatin Powder 15gm Bottle 1 APPLIC TOPICAL ×2 (06:24→21:20)
[2019-09-21] MEDS: Menthol/Lanolin/Calamine/Znox 113 GM Tube 1 APPLIC TOPICAL ×3 (06:24→21:19)
[2019-09-21] MEDS: Propranolol 10 MG Tablet 20 MG PO ×3 (06:26→20:46)
[2019-09-21] MEDS: Enoxaparin 40 MG/0.4 ML Syringe SC (06:26)
[2019-09-21 11:00] VITALS: PULSE 63; RESP 16; O2SAT 98
[2019-09-21 15:30] VITALS: BP 106/58; PULSE 70; RESP 16; TEMP 37; O2SAT 97
--- NOTE | 2019-09-21 19:14 | DCINST_ITS ---
- Discharge Diagnoses Current Active Problems: Current Active and Chronic Problems (Last Reviewed 06/24/19 @ 12:[address] Lisa Daly, DO) Debility (Acute) Scalp laceration (Chronic) Insomnia (Chronic) You will use the following diet at home:: No restrictions, Regular Your food should be the consistency of: Regular Your liquids should be the consistency of: Regular/Thin Discharge Activity: Return to Normal Activity Weight Bearing Status: Weight bearing as tolerated Call your doctor if you observe: Fever of 101 or Higher, Inability to urinate, Inability to have a bowel movement, Chest pain, Uncontrolled pain Allergies/Adverse Reactions: Allergies No Known Allergies Allergy (Verified 07/12/19 06:19) Medications to take at Discharge Bisacodyl [Dulcolax] 10 mg RECTAL DAILY PRN 06/30/19 Enoxaparin [Lovenox] 40 mg SUBCUT DAILY@0600 06/30/19 Loperamide [Imodium] 2 mg GT Q4H PRN PRN cap 06/30/19 Melatonin/Pyridoxine [Melatonin 5 mg Tablet] 1 ea PO QHS 06/30/19 Menthol/Lanolin/Calamine/Znox [Calmoseptine Ointment] 1 applic TOPICAL TID 06/30/19 Acetaminophen [Tylenol Tablet] 650 mg PO Q6H PRN PRN tablet 09/21/19 Acetaminophen [Tylenol Tablet] 650 mg PO QHS tablet 09/21/19 Albuterol Aerosols [Ventolin Aerosols] 2.5 mg INHALATION Q2H PRN PRN vial.neb. 09/21/19 Ensure Enlive 120 ml PO 0800,1200,1700 liquid 09/21/19 Guaifenesin [Robitussin] 10 ml PO Q4H PRN PRN udc 09/21/19 Loperamide [Imodium Liquid] 2 mg PO Q4H PRN PRN ml 09/21/19 Mineral Oil/Petrolatum,White [Eucerin] 1 applic TOPICAL 0600,2200 jar 09/21/19 Nystatin Powder [Mycostatin Powder] 1 applic TOPICAL 0600,2200 bottle 09/21/19 Propranolol HCl [Inderal (Beta Paco)] 20 mg PO TID tablet 09/21/19 Tizanidine HCl [Zanaflex] 2 mg PO QHS@2000 tablet 09/21/19 traMADol [Ultram] 50 mg PO Q6H PRN PRN tablet 09/21/19 Primary Care Physician: Darvin Telles MD [Primary Care Provider] - Please follow up with your Primary Care Physician in: 1 week. Test Results: Test results from this visit will be discussed in further detail at your follow- up appointment, if applicable. Please Follow Up With: Dr. Mims When: F/U 1 month from 07/07/19 Please Follow Up With: Jose Robles MD When: [phone] Please Follow Up With: Morgan Brandt MD When: f/u one month from 08/31/19 Proposed Discharge Date: 09/30/19
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
[2019-09-21] MEDS: tiZANidine HCl 2 MG Tablet PO (20:46)
[2019-09-21] MEDS: MELATONIN 10 MG TABLET 5 MG PO (20:47)
[2019-09-21] MEDS: Acetaminophen 325 MG Tablet 650 MG PO (20:49)
[2019-09-22] MEDS: Enoxaparin 40 MG/0.4 ML Syringe SC (06:37)
[2019-09-22] MEDS: Propranolol 10 MG Tablet 20 MG PO ×3 (06:37→21:43)
[2019-09-22] MEDS: Nystatin Powder 15gm Bottle 1 APPLIC TOPICAL ×2 (06:42→21:53)
[2019-09-22] MEDS: Menthol/Lanolin/Calamine/Znox 113 GM Tube 1 APPLIC TOPICAL ×3 (06:42→21:50)
[2019-09-22 13:55] VITALS: BP 101/61; PULSE 71; RESP 16; TEMP 37; O2SAT 96
[2019-09-22] MEDS: tiZANidine HCl 2 MG Tablet PO (21:43)
[2019-09-22] MEDS: MELATONIN 10 MG TABLET 5 MG PO (21:44)
[2019-09-22] MEDS: Acetaminophen 325 MG Tablet 650 MG PO (21:44)
[2019-09-23] MEDS: Propranolol 10 MG Tablet 20 MG PO ×3 (06:38→21:44)
[2019-09-23] MEDS: Enoxaparin 40 MG/0.4 ML Syringe SC (06:38)
[2019-09-23] MEDS: Menthol/Lanolin/Calamine/Znox 113 GM Tube 1 APPLIC TOPICAL ×3 (06:48→21:50)
[2019-09-23] MEDS: Nystatin Powder 15gm Bottle 1 APPLIC TOPICAL ×2 (06:48→21:50)
[2019-09-23 11:22] VITALS: PULSE 72
[2019-09-23 14:38] VITALS: BP 109/57; PULSE 83; RESP 14; TEMP 36.8; O2SAT 97
[2019-09-23] MEDS: MELATONIN 10 MG TABLET 5 MG PO (21:43)
[2019-09-23] MEDS: tiZANidine HCl 2 MG Tablet PO (21:44)
[2019-09-23] MEDS: Acetaminophen 325 MG Tablet 650 MG PO (21:44)
[2019-09-24] MEDS: Enoxaparin 40 MG/0.4 ML Syringe SC (06:12)
[2019-09-24] MEDS: Propranolol 10 MG Tablet 20 MG PO ×3 (06:12→21:14)
[2019-09-24 06:16] LABS: Absolute Lymphocyte Count 1.52 X10^3/uL (0.83-4.51); Absolute Neutrophil Count 1.9 X10^3/uL (2.0-7.7); Basophil# 0.06 X10^3/uL; Basophil% 1.5 % (0-1); Eosinophil# 0.06 X10^3/uL; Eosinophils% 1.5 % (0-5); Hematocrit 37.8 % (40-54); Hemoglobin 12.3 g/dL (13.0-16.5); Lymphocyte # 1.52 X10^3/ul (4.0); Lymphocyte % 38.8 % (19-41); Mean Corp Hgb Conc 32.5 g/dL (32-36); Mean Corpuscular Hgb 27.2 pg (27.0-32.0); Mean Corpuscular Volume 83.6 fL (80-94); Mean Platelet Vol. 9.6 fl (6.2-12.0); Monocyte# 0.35 X10^3/uL; Monocyte% 8.9 % (0-10); NRBC Flagged by Analyzer 0 % (0-5); Neutrophil # 1.93 X10^3/uL (2.7-7.7); Neutrophil % 49.3 % (47-70); Platelet Count 218 K/mm3 (150-450); RBC Distribution Width CV 13.3 % (11.6-14.6); RBC Distribution Width SD 40.5 fl (35.1-43.9); Red Blood Count 4.52 M/mm3 (4.6-6.2); White Blood Count 3.9 K/mm3 (4.4-11.0)
[2019-09-24] MEDS: Nystatin Powder 15gm Bottle 1 APPLIC TOPICAL ×2 (06:16→21:15)
[2019-09-24] MEDS: Menthol/Lanolin/Calamine/Znox 113 GM Tube 1 APPLIC TOPICAL ×3 (06:16→21:15)
[2019-09-24 06:49] LABS: Anion Gap 6 (5-15); BUN 14 mg/dL (7-18); BUN/Creat Ratio 19.2 RATIO (10-20); Calcium,Total 9.4 mg/dL (8.5-10.1); Chloride 106 mmol/L (98-107); Creatinine, Serum 0.73 mg/dL (0.70-1.30); EST Glomerular Filtration Rate 144 mL/min (>60); Est Glom Filt Rate - Afr Amer 175 mL/min (>60); Estimated Creatinine Clearance 149.66 ml/min; Glucose 91 mg/dL (74-106); Potassium 3.9 mmol/L (3.5-5.1); Sodium Level 139 mmol/L (136-145)
[2019-09-24 10:00] VITALS: PULSE 71; RESP 14; O2SAT 99
--- NOTE | 2019-09-24 10:45 | MDS.RN ---
Pain interview for gage 09/27/19 completed.
[2019-09-24 16:55] VITALS: BP 99/46; PULSE 69; RESP 14; TEMP 36.9; O2SAT 97
[2019-09-24] MEDS: Acetaminophen 325 MG Tablet 650 MG PO (21:13)
[2019-09-24] MEDS: tiZANidine HCl 2 MG Tablet PO (21:14)
[2019-09-24] MEDS: MELATONIN 10 MG TABLET 5 MG PO (21:14)
[2019-09-24 21:20] VITALS: BP 103/51; PULSE 63
[2019-09-25] MEDS: Nystatin Powder 15gm Bottle 1 APPLIC TOPICAL ×2 (06:24→21:56)
[2019-09-25] MEDS: Enoxaparin 40 MG/0.4 ML Syringe SC (06:24)
[2019-09-25] MEDS: Menthol/Lanolin/Calamine/Znox 113 GM Tube 1 APPLIC TOPICAL ×3 (06:24→21:57)
[2019-09-25] MEDS: Propranolol 10 MG Tablet 20 MG PO ×3 (08:07→21:48)
--- NOTE | 2019-09-25 09:26 | CASEMGMT ---
Social Work BIMS and PHQ-9 completed for MDS assessment. Cornelia Leal, GAS PROCESSING PLANT OPERATOR MEDICAL SCIENTIFIC OFFICER
[2019-09-25 14:16] VITALS: BP 93/68; PULSE 71; RESP 18; TEMP 37.2; O2SAT 97
[2019-09-25 21:15] VITALS: PULSE 65; RESP 16; O2SAT 98
[2019-09-25] MEDS: MELATONIN 10 MG TABLET 5 MG PO (21:47)
[2019-09-25] MEDS: tiZANidine HCl 2 MG Tablet PO (21:48)
[2019-09-25] MEDS: Acetaminophen 325 MG Tablet 650 MG PO (21:48)
[2019-09-25 22:00] VITALS: RESP 15; O2SAT 99
[2019-09-26] MEDS: Enoxaparin 40 MG/0.4 ML Syringe SC (06:58)
[2019-09-26] MEDS: Menthol/Lanolin/Calamine/Znox 113 GM Tube 1 APPLIC TOPICAL ×3 (06:58→21:15)
[2019-09-26] MEDS: Nystatin Powder 15gm Bottle 1 APPLIC TOPICAL ×2 (06:59→21:15)
[2019-09-26] MEDS: Propranolol 10 MG Tablet 20 MG PO ×3 (08:10→21:13)
[2019-09-26 14:27] VITALS: BP 132/72; PULSE 68; RESP 18; TEMP 36.6; O2SAT 99
[2019-09-26] MEDS: tiZANidine HCl 2 MG Tablet PO (21:14)
[2019-09-26] MEDS: Acetaminophen 325 MG Tablet 650 MG PO (21:14)
[2019-09-26] MEDS: MELATONIN 10 MG TABLET 5 MG PO (21:14)
[2019-09-27] MEDS: Enoxaparin 40 MG/0.4 ML Syringe SC (06:50)
[2019-09-27] MEDS: Nystatin Powder 15gm Bottle 1 APPLIC TOPICAL ×2 (06:52→21:17)
[2019-09-27] MEDS: Menthol/Lanolin/Calamine/Znox 113 GM Tube 1 APPLIC TOPICAL ×3 (06:52→21:17)
[2019-09-27] MEDS: Propranolol 10 MG Tablet 20 MG PO ×3 (07:54→21:09)
[2019-09-27 10:00] VITALS: PULSE 78; RESP 14; O2SAT 99
[2019-09-27 13:36] VITALS: BP 103/45; PULSE 66; RESP 18; TEMP 36.6; O2SAT 98
[2019-09-27] MEDS: Acetaminophen 325 MG Tablet 650 MG PO (21:09)
[2019-09-27] MEDS: tiZANidine HCl 2 MG Tablet PO (21:10)
[2019-09-27] MEDS: MELATONIN 10 MG TABLET 5 MG PO (21:10)
[2019-09-28 05:59] LABS: Absolute Lymphocyte Count 2.33 X10^3/uL (0.83-4.51); Basophil# 0.05 X10^3/uL; Hematocrit 37.7 % (40-54); Hemoglobin 12.3 g/dL (13.0-16.5); Lymphocyte # 2.33 X10^3/ul (4.0); Lymphocyte % 46.6 % (19-41); Mean Corp Hgb Conc 32.6 g/dL (32-36); Mean Corpuscular Hgb 27.3 pg (27.0-32.0); Mean Corpuscular Volume 83.6 fL (80-94); Mean Platelet Vol. 9.6 fl (6.2-12.0); Monocyte# 0.48 X10^3/uL; Monocyte% 9.6 % (0-10); NRBC Flagged by Analyzer 0 % (0-5); Neutrophil # 2.03 X10^3/uL (2.7-7.7); Neutrophil % 40.6 % (47-70); Platelet Count 218 K/mm3 (150-450); RBC Distribution Width CV 13.2 % (11.6-14.6); RBC Distribution Width SD 40.4 fl (35.1-43.9); Red Blood Count 4.51 M/mm3 (4.6-6.2)
[2019-09-28 06:05] LABS: International Normalized Ratio 1.1; Prothrombin Time (Protime)PT. 13.7 SECONDS (11.7-14.9)
[2019-09-28] MEDS: Menthol/Lanolin/Calamine/Znox 113 GM Tube 1 APPLIC TOPICAL ×3 (06:09→21:27)
[2019-09-28] MEDS: Enoxaparin 40 MG/0.4 ML Syringe SC (06:10)
[2019-09-28] MEDS: Nystatin Powder 15gm Bottle 1 APPLIC TOPICAL ×2 (06:11→21:25)
[2019-09-28 06:43] LABS: Anion Gap 5 (5-15); BUN 15 mg/dL (7-18); BUN/Creat Ratio 20.1 RATIO (10-20); Chloride 107 mmol/L (98-107); Creatinine, Serum 0.75 mg/dL (0.70-1.30); EST Glomerular Filtration Rate 140 mL/min (>60); Est Glom Filt Rate - Afr Amer 170 mL/min (>60); Estimated Creatinine Clearance 145.66 ml/min; Glucose 87 mg/dL (74-106); Potassium 3.6 mmol/L (3.5-5.1); Sodium Level 139 mmol/L (136-145)
[2019-09-28] MEDS: Propranolol 10 MG Tablet 20 MG PO ×3 (07:54→21:24)
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
--- NOTE | 2019-09-28 13:58 | EKG12_ITS ---
Test Reason : Blood Pressure : / mmHG Vent. Rate : 066 BPM Atrial Rate : 066 BPM P-R Int : 140 ms QRS Dur : 088 ms QT Int : 376 ms P-R-T Axes : 057 079 063 degrees QTc Int : 394 ms Normal sinus rhythm Normal ECG Confirmed by ADAMS CR, YAMILE ([id number]), videotape editor MIKE LAU ([id number]) on 09/30/2019 9:39:23 AM Referred By: Confirmed By:YAMILE LAMAS MD
--- NOTE | 2019-09-28 14:07 | NURSING ---
all preop labs/tests/reports faxed to Dr Amos per his request
[2019-09-28 14:25] VITALS: BP 118/49; PULSE 69; RESP 16; TEMP 36.2; O2SAT 99
[2019-09-28] MEDS: MELATONIN 10 MG TABLET 5 MG PO (21:24)
[2019-09-28] MEDS: tiZANidine HCl 2 MG Tablet PO (21:25)
[2019-09-28] MEDS: Acetaminophen 325 MG Tablet 650 MG PO (21:25)
[2019-09-28 22:56] VITALS: PULSE 76; RESP 16; O2SAT 97
[2019-09-29] MEDS: Menthol/Lanolin/Calamine/Znox 113 GM Tube 1 APPLIC TOPICAL ×3 (06:24→19:58)
[2019-09-29] MEDS: Nystatin Powder 15gm Bottle 1 APPLIC TOPICAL ×2 (06:25→19:59)
[2019-09-29] MEDS: Propranolol 10 MG Tablet 20 MG PO ×3 (07:52→19:58)
--- NOTE | 2019-09-29 15:08 | CHAPLAIN ---
Type of Pastoral Visit ___ Initial Visit _x__ Follow-up Visit ___ On-call Visit ___ General Patient Visit ___ Spiritual Assessment ___ Family Conference ___ Bereavement ___ Rapid Response ___ Code Blue ___ Other (describe below) Pastoral Care Referral From ___ Patient _x__ Family ___ Nurse ___ Physician ___ Space Officer ___ Inside Sales Recruiter ___ Other (describe below) Sacrament/Intervention ___ Active listening ___ Anointing ___ Episcopalian ___ Bereavement ___ Communion ___ Nickie exploration ___ ___ Life review _x__ Prayer ___ Reconciliation ___ Sacrament of Sick _x__ Supportive presence ___ Wedding ___ Other (describe below) Pastoral Comments many family members in room; this was first time that this wire strander saw patient smile and to hear him say hi;
[2019-09-29 16:09] VITALS: BP 109/52; PULSE 83; RESP 14; TEMP 36.8; O2SAT 98
[2019-09-29 19:38] VITALS: PULSE 84; O2SAT 97
[2019-09-29] MEDS: Acetaminophen 325 MG Tablet 650 MG PO (19:58)
[2019-09-29] MEDS: tiZANidine HCl 2 MG Tablet PO (19:58)
[2019-09-29] MEDS: MELATONIN 10 MG TABLET 5 MG PO (20:00)
[2019-09-30 04:27] VITALS: PULSE 62; O2SAT 98
[2019-09-30 04:43] VITALS: BP 112/64; PULSE 61; RESP 18; TEMP 36.6; O2SAT 98
--- NOTE | 2019-09-30 07:05 | MDS.RN ---
Information for the mds was obtained from review of the clinical record, interview of resident, staff, and direct observation of resident's care.
== END 2019-09-30 04:45 | disposition short-term general hospital (02) | DRG 949 ==
PROVIDERS: Admitting Provider Family Medicine Geriatric Medicine; Family Provider Family Medicine; PCP Family Medicine; Visit Provider Family Medicine Geriatric Medicine
DX: S06.5X9D Traumatic subdural hemorrhage with loss of consciousness of unspecified duration, subsequent encounter (principal); D62 Acute posthemorrhagic anemia; V13.4XXD Pedal cycle driver injured in collision with car, pick-up truck or van in traffic accident, subsequent encounter; S01.01XD Laceration without foreign body of scalp, subsequent encounter; S27.329D Contusion of lung, unspecified, subsequent encounter; Z93.1 Gastrostomy status; B37.9 Candidiasis, unspecified; Z93.0 Tracheostomy status; Z98.2 Presence of cerebrospinal fluid drainage device; T17.990A Other foreign object in respiratory tract, part unspecified in causing asphyxiation, initial encounter; X58.XXXA Exposure to other specified factors, initial encounter; Y92.129 Unspecified place in nursing home as the place of occurrence of the external cause; B35.4 Tinea corporis
CPT/HCPCS: 31720; 36415; 36600; 71046; 74018; 74230; 76000; 80048; 81001; 83735; 84100; 85025; 85610; 86850; 86900; 86901; 87086; 92507; 92523; 92526; 92610; 92611; 93005; 97032; 97110; 97112; 97116; 97162; 97166; 97530; 97535; 97542; 97802; 97803; 99251; G0463

== ENCOUNTER 2019-10-03 15:12 | Inpatient (IN) | payer SELFPAY, OTHER ==
[2019-06-30 14:44] VITALS: BMI 22.1
[2019-10-03 15:29] VITALS: BP 111/60; PULSE 69; RESP 16; TEMP 37; O2SAT 98; BMI 22.7
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
[2019-10-03] MEDS: tiZANidine HCl 2 MG Tablet PO (19:51)
[2019-10-03] MEDS: MELATONIN 3 MG TABLET 6 MG PO (19:51)
[2019-10-03] MEDS: Acetaminophen 325 MG Tablet 650 MG PO (19:57)
[2019-10-03] MEDS: Menthol/Lanolin/Calamine/Znox 113 GM Tube 1 APPLIC TOPICAL (19:58)
[2019-10-04 05:59] LABS: Absolute Lymphocyte Count 2.03 X10^3/uL (0.83-4.51); Absolute Neutrophil Count 1.7 X10^3/uL (2.0-7.7); Basophil# 0.05 X10^3/uL; Basophil% 1.1 % (0-1); Eosinophils% 4.5 % (0-5); Hematocrit 32.7 % (40-54); Hemoglobin 10.9 g/dL (13.0-16.5); Lymphocyte # 2.03 X10^3/ul (4.0); Lymphocyte % 45.4 % (19-41); Mean Corp Hgb Conc 33.3 g/dL (32-36); Mean Corpuscular Hgb 27.4 pg (27.0-32.0); Mean Corpuscular Volume 82.2 fL (80-94); Mean Platelet Vol. 9.6 fl (6.2-12.0); Monocyte# 0.45 X10^3/uL; Monocyte% 10.1 % (0-10); NRBC Flagged by Analyzer 0 % (0-5); Neutrophil # 1.73 X10^3/uL (2.7-7.7); Neutrophil % 38.7 % (47-70); Platelet Count 224 K/mm3 (150-450); RBC Distribution Width CV 13.1 % (11.6-14.6); RBC Distribution Width SD 39.3 fl (35.1-43.9); Red Blood Count 3.98 M/mm3 (4.6-6.2); White Blood Count 4.5 K/mm3 (4.4-11.0)
[2019-10-04 06:22] LABS: Anion Gap 7 (5-15); BUN 16 mg/dL (7-18); BUN/Creat Ratio 22.6 RATIO (10-20); Calcium,Total 9.3 mg/dL (8.5-10.1); Chloride 105 mmol/L (98-107); Creatinine, Serum 0.71 mg/dL (0.70-1.30); EST Glomerular Filtration Rate 149 mL/min (>60); Est Glom Filt Rate - Afr Amer 181 mL/min (>60); Estimated Creatinine Clearance 153.44 ml/min; Glucose 91 mg/dL (74-106); Potassium 3.8 mmol/L (3.5-5.1); Sodium Level 139 mmol/L (136-145)
[2019-10-04] MEDS: Menthol/Lanolin/Calamine/Znox 113 GM Tube 1 APPLIC TOPICAL ×3 (06:22→19:57)
--- NOTE | 2019-10-04 09:21 | NURSING ---
Family requesting that inderal be dc'd, Dr Amaral updated, new order for tapering dose and monitor for tachycardia
[2019-10-04] MEDS: Propranolol 10 MG Tablet 20 MG PO (13:29)
[2019-10-04 14:11] VITALS: BP 109/61; PULSE 74; RESP 16; TEMP 36.8; O2SAT 98
[2019-10-04] MEDS: MELATONIN 3 MG TABLET 6 MG PO (19:47)
[2019-10-04] MEDS: tiZANidine HCl 2 MG Tablet PO (19:48)
[2019-10-04] MEDS: Acetaminophen 325 MG Tablet 650 MG PO (19:48)
[2019-10-04 19:56] VITALS: BP 116/49; PULSE 77; RESP 16; O2SAT 97
[2019-10-04 20:05] VITALS: PULSE 77; RESP 16
[2019-10-05] MEDS: Propranolol 10 MG Tablet 20 MG PO ×2 (06:35→17:32)
[2019-10-05 06:51] VITALS: BP 110/55; RESP 16
[2019-10-05 10:00] VITALS: RESP 14
[2019-10-05 14:20] VITALS: BP 101/52; PULSE 72; RESP 16; TEMP 37; O2SAT 98
--- NOTE | 2019-10-05 15:19 | CASEMGMT ---
Addendum entered by Cornelia Leal 10/05/19 16:49: Called several [facility] agencies - [facility] can accept pt and payer. Family agreeable. Family coordinated with [employer] for DME. Referrals made. Plan: DC home with family 18 with [facility] PT/OT/ST/SN. Original Note: Social Work Met with pt and mother. Mother in room and explained updated restricted visitor policy. Mother stated since she is unable to visit she would like pt to DC home. IDT agreeable. Mother would like [facility]. Referred to [facility] for PT/OT/ST/SN. Awaiting acceptance/denial as pt is self-pay/[employer]. Left message with [employer] to coordinate any DME needs. Explained to mother she can stay with pt until pt DC's 10/06 but must wear mask and no other visitors. Mother understood. Will continue to follow. LENORE Kimbrough
[2019-10-05] MEDS: Menthol/Lanolin/Calamine/Znox 113 GM Tube 1 APPLIC TOPICAL ×2 (17:34→22:37)
--- NOTE | 2019-10-05 19:40 | DCINST_ITS ---
You will use the following diet at home:: No restrictions, Regular Your food should be the consistency of: Regular Your liquids should be the consistency of: Regular/Thin Discharge Activity: Return to Normal Activity, May Shower, Use Walker Weight Bearing Status: Weight bearing as tolerated Call your doctor if you observe: Fever of 101 or Higher, Inability to urinate, Inability to have a bowel movement, Shortness of breath, Chest pain, Uncontrolled pain Allergies/Adverse Reactions: Allergies No Known Allergies Allergy (Verified 07/12/19 06:19) Medications to take at Discharge Melatonin/Pyridoxine [Melatonin 5 mg Tablet] 1 ea PO QHS 06/30/19 Menthol/Lanolin/Calamine/Znox [Calmoseptine Ointment] 1 applic TOPICAL TID 06/30/19 Acetaminophen [Tylenol Tablet] 650 mg PO Q6H PRN PRN tab 09/21/19 Acetaminophen [Tylenol Tablet] 650 mg PO QHS 10/03/19 Mineral Oil/Petrolatum,White [Eucerin] 1 applic TOPICAL 0600,2200 10/03/19 Bisacodyl [Dulcolax] 10 mg RECTAL DAILY PRN #30 10/05/19 Tizanidine HCl [Zanaflex] 2 mg PO QHS@2000 #30 tab 10/05/19 The following prescriptions were given: Bisacodyl [Dulcolax] 10 mg RECTAL DAILY PRN #30 PRN Reason: Constipation Prescription Printed Tizanidine HCl [Zanaflex] 2 mg PO QHS@2000 #30 tab Prescription Printed Primary Care Physician: Darvin Telles MD [Primary Care Provider] - Please follow up with your Primary Care Physician in: 1 week. Test Results: Test results from this visit will be discussed in further detail at your follow- up appointment, if applicable. Please Follow Up With: Eron Mims When: As scheduled. Proposed Discharge Date: 10/06/19
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
[2019-10-05] MEDS: tiZANidine HCl 2 MG Tablet PO (22:36)
[2019-10-05] MEDS: Acetaminophen 325 MG Tablet 650 MG PO (22:36)
[2019-10-05] MEDS: MELATONIN 3 MG TABLET 6 MG PO (22:36)
[2019-10-06] MEDS: Propranolol 10 MG Tablet 20 MG PO (06:21)
[2019-10-06] MEDS: Menthol/Lanolin/Calamine/Znox 113 GM Tube 1 APPLIC TOPICAL (06:21)
[2019-10-06 10:00] VITALS: PULSE 90; RESP 16; O2SAT 99
--- NOTE | 2019-10-06 10:05 | PHA.CONS_ITS ---
<Nicolas Coelhoip D - Last Filed: 10/06/19 10:05> Progress Note - Pharmacy Subjective: TCU Admission Objective: Allergies No Known Allergies Allergy (Verified 07/12/19 06:19) Current Medications Generic Name Dose Route Start Last Admin Trade Name Freq PRN Reason Stop Dose Admin Acetaminophen 650 mg 10/03/19 15:39 Tylenol PO Q6H PRN PRN Pain Score 1-10/10 Acetaminophen 650 mg 10/03/19 22:00 10/05/19 22:36 Tylenol PO 650 mg QHS [facility] Administration Bisacodyl 10 mg 10/03/19 15:39 Dulcolax RECTAL DAILY PRN Constipation Calamine/Phenol 1 applic 10/03/19 22:00 10/06/19 06:21 Calmoseptine Ointment TOPICAL 1 applic TID [facility] Administration Protocol Loperamide HCl 2 mg 10/03/19 15:39 Imodium Liquid PO Q4H PRN PRN Diarrhea Melatonin 6 mg 10/03/19 22:00 10/05/19 22:36 Melatonin PO 6 mg QHS [facility] Administration Multi-Ingredient Cream 1 applic 10/03/19 22:00 10/06/19 06:24 Eucerin TOPICAL 1 applic 0600,2200 [facility] Administration Protocol Nutritional Formula (Lactose Free) 120 ml 10/03/19 17:00 10/06/19 07:48 Ensure Enlive PO 120 ml 0800,1200,1700 [facility] Administration Propranolol HCl 20 mg 10/05/19 06:00 10/06/19 06:21 Inderal PO 10/07/19 18:01 20 mg BID [facility] Administration Propranolol HCl 20 mg 10/08/19 06:00 Inderal PO 10/11/19 06:01 DAILY [facility] Tizanidine HCl 2 mg 10/03/19 20:00 10/05/19 22:36 Zanaflex PO 2 mg QHS@2000 [facility]IGU[facility]NG[facility] Administration Vital Signs Temp Pulse Resp BP Pulse Ox 98.6 F 72 16 101/52 L 98 10/05/19 14:20 10/05/19 14:20 10/05/19 14:20 10/05/19 14:20 10/05/19 14:20 Oxygen Delivery Method Room Air Weight: 65.913 kg Body Mass Index (BMI) 22.7 Finger Stick Blood Glucose 151 Sodium 139 mmol/L (136-145) 10/04/19 05:15 Potassium 3.8 mmol/L (3.5-5.1) 10/04/19 05:15 Chloride 105 mmol/L (98-107) 10/04/19 05:15 Carbon Dioxide 27.0 mmol/L (21.0-32.0) 10/04/19 05:15 Anion Gap 7 (5-15) 10/04/19 05:15 BUN 16 mg/dL (7-18) 10/04/19 05:15 Creatinine 0.71 mg/dL (0.70-1.30) 10/04/19 05:15 Est GFR (MDRD) Af Amer 181 mL/min (>60) 10/04/19 05:15 Est GFR (MDRD) Non-Af 149 mL/min (>60) 10/04/19 05:15 BUN/Creatinine Ratio 22.6 RATIO (10-20) H 10/04/19 05:15 Glucose 91 mg/dL (74-106) 10/04/19 05:15 Assessment/Plan: 1) Pain Tylenol 650mg HS, Tylenol 650mg Q6H PRN Pain 1-10. Please continue to monitor PRN usage, S/S of increased or decreased pain 2) Insomnia Melatonin 6mg QHS. Please continue to monitor for medication effectiveness. 3) Tachycardia Propranolol 20mg GT TID, tapering off. Please continue to monitor pulse, BP, medication effectiveness 4) Muscle spasm Tizanidine 2mg GT QHS. Please continue to monitor patient for continued spasms, medication effectiveness Psychotropic Medications: None Unnecessary Medications: None Bowel Regimen: 5) Loperamide prn for diarrhea, bisacodyl prn for constipation. Continue to monitor prn medication use, for constipation/diarrhea. Date of Note:: 10/06/19 - Provider Comments Provider responsibility: Provider responsible to enter orders to implement recommendations <Joe Amaral Chi - Last Filed: 10/06/19 12:44> Progress Note - Pharmacy Subjective: [] Objective: Allergies No Known Allergies Allergy (Verified 07/12/19 06:19) Current Medications Generic Name Dose Route Start Last Admin Trade Name Freq PRN Reason Stop Dose Admin Acetaminophen 650 mg 10/03/19 15:39 Tylenol PO Q6H PRN PRN Pain Score 1-10/10 Acetaminophen 650 mg 10/03/19 22:00 10/05/19 22:36 Tylenol PO 650 mg QHS [facility] Administration Bisacodyl 10 mg 10/03/19 15:39 Dulcolax RECTAL DAILY PRN Constipation Calamine/Phenol 1 applic 10/03/19 22:00 10/06/19 06:21 Calmoseptine Ointment TOPICAL 1 applic TID [facility] Administration Protocol Loperamide HCl 2 mg 10/03/19 15:39 Imodium Liquid PO Q4H PRN PRN Diarrhea Melatonin 6 mg 10/03/19 22:00 10/05/19 22:36 Melatonin PO 6 mg QHS [facility] Administration Multi-Ingredient Cream 1 applic 10/03/19 22:00 10/06/19 06:24 Eucerin TOPICAL 1 applic 0600,2200 [facility] Administration Protocol Nutritional Formula (Lactose Free) 120 ml 10/03/19 17:00 10/06/19 11:32 Ensure Enlive PO 120 ml 0800,1200,1700 [facility] Administration Propranolol HCl 20 mg 10/05/19 06:00 10/06/19 06:21 Inderal PO 10/07/19 18:01 20 mg BID [facility] Administration Propranolol HCl 20 mg 10/08/19 06:00 Inderal PO 10/11/19 06:01 DAILY [facility] Tizanidine HCl 2 mg 10/03/19 20:00 10/05/19 22:36 Zanaflex PO 2 mg QHS@2000 [facility] Administration Vital Signs Temp Pulse Resp BP Pulse Ox 98.6 F 72 16 101/52 L 98 10/05/19 14:20 10/05/19 14:20 10/05/19 14:20 10/05/19 14:20 10/05/19 14:20 Oxygen Delivery Method Room Air Weight: 65.913 kg Body Mass Index (BMI) 22.7 Finger Stick Blood Glucose 151 Sodium 139 mmol/L (136-145) 10/04/19 05:15 Potassium 3.8 mmol/L (3.5-5.1) 10/04/19 05:15 Chloride 105 mmol/L (98-107) 10/04/19 05:15 Carbon Dioxide 27.0 mmol/L (21.0-32.0) 10/04/19 05:15 Anion Gap 7 (5-15) 10/04/19 05:15 BUN 16 mg/dL (7-18) 10/04/19 05:15 Creatinine 0.71 mg/dL (0.70-1.30) 10/04/19 05:15 Est GFR (MDRD) Af Amer 181 mL/min (>60) 10/04/19 05:15 Est GFR (MDRD) Non-Af 149 mL/min (>60) 10/04/19 05:15 BUN/Creatinine Ratio 22.6 RATIO (10-20) H 10/04/19 05:15 Glucose 91 mg/dL (74-106) 10/04/19 05:15 Assessment/Plan: Psychotropic Medications: Unnecessary Medications: Bowel Regimen: - Provider Comments Provider responsibility: Provider responsible to enter orders to implement recommendations Provider Comments to Recommendations by Pharmacy: Agree
[2019-10-06 14:57] VITALS: BP 115/68; PULSE 74; RESP 18; TEMP 36.8; O2SAT 99
--- NOTE | 2019-10-06 14:59 | CASEMGMT ---
Social Work Reviewed and agreed with social work internet marketing strategist documentation on this date. Cornelia Leal, ALIGNING CHECKER LAW OFFICE ASSISTANT
[2019-10-06 16:00] VITALS: BP 115/68; PULSE 74; RESP 18; TEMP 36.8; O2SAT 99
--- NOTE | 2019-10-07 16:17 | CASEMGMT ---
Social Work Reviewed and agreed with social work international logistics coordinator documentation on this date. Cornelia Leal, PLANNING ASSOCIATE ACID RECOVERY OPERATOR
--- NOTE | 2019-10-14 11:04 | MDS.RN ---
Information for the mds was obtained from review of the clinical record, interview of resident, staff, and direct observation of resident's care.
== END 2019-10-06 16:00 | disposition home health service (06) | DRG 950 ==
PROVIDERS: Admitting Provider Family Medicine Geriatric Medicine; PCP Family Medicine; Visit Provider Family Medicine Geriatric Medicine
DX: S06.5X9D Traumatic subdural hemorrhage with loss of consciousness of unspecified duration, subsequent encounter (principal); V19.6 Unspecified pedal cyclist injured in collision with other and unspecified motor vehicles in traffic accident; S27.329D Contusion of lung, unspecified, subsequent encounter
CPT/HCPCS: 36415; 80048; 85025; 92507; 92523; 92526; 92610; 97110; 97116; 97162; 97166; 97530; 97802

== ENCOUNTER 2020-04-15 14:00 | Outpatient (RCR) | payer SELFPAY, OTHER ==
[2019-10-03 15:29] VITALS: BMI 22.7
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
--- NOTE | 2019-12-29 10:12 | HP.PTREVAL ---
Dr. Darvin Telles MD, It has been my pleasure to treat BRENDA MAZA over the last 10 visits for TBI. Please see the progress note below for an update on the physical therapy plan of care! Subjective: Pt. and mother arrive today with patient walking with FWW. He continues to lack TKE on R side with minimal heel strike. Pt. reports no pain at home. Pt. reports being HEP compliant. Objective/Function: Pt. is slowly improving with RLE strength and gait. He contiues to require increased VCing for proper step lenght on R side, to increase R sided wt. shifting, to increase erect posture. I had him walking without AD to focus on reducing external imput to increase his ability to self correct. He contiunes to have a hard time doign this. Pt. is tight in his calf, I gave him a a dimple bandage to wear as a night splint, may need a more formal one. He also has an AFO, pt. to bring in next visit to determin if still viable. pt's mother consents, Plan Plan: 1. Start with Gait without AD (start with 1 HR progressing to no AD forcing increased wt. shift to R side). Pre gait activities working on TKE and heel strike during initial contact. 2. work on functional movements to increase R sided wt. shifting and to increase stability with RLE postioning with gait and squating. 3. Work on seated and standing coordniation activities to RLE, stepping to objects, stability on RLE re-inforcing TKE in stance. 4. RLE strengthening without use of synergistic movements to accomplish the movement. 5. family is involved and will to help, please progress HEP with family to work on movements as well. Goals Goal 1:: LTG: Pt. to be I with HEP. Goal Time Frame: 6-8 Weeks Goal Progress: Progressing Goal 2:: LTG: Pt. to ambulates without presence of RLE flexor synergy allowing for improved stability. Goal Time Frame: 4-6 Weeks Goal Progress: Progressing Goal 3:: STG: Pt. to complete stand pivot transfers I with and/or without AD. Goal Time Frame: 4-6 Weeks Goal Progress: Progressing Goal 4:: STG: Pt. to improve on Chedoke-Ricardo scale of R foot and R leg by 2 stages indicating improved coordination. Goal Time Frame: 4-6 Weeks Goal Progress: Progressing Goal 5:: LTG: Pt. to have improved RLE strength by 1/2 grade of all effected musculature. Goal Time Frame: 6-8 Weeks Goal Progress: Progressing Anticipated Interventions Patient/Client Instruction: Educate patient on: Condition, Plan of Care, Risk Factors, Benefits of Fitness Program For the Purpose of:: To improve decision making, To facilitate caregiver knowledge, To improve self management, To prevent re-injury, To improve ability to perform tasks related to life management, To improve tolerance to ADL's Therapeutic Exercise to Include: Strength training, Power training, Endurance training, Balance training, Coordination, Agility training, Body mechanics, Postural training, Flexibilty training, Gait and locomotor training, Neuromotor development, Passive ROM, Active ROM, Dynamic Lumbar Stabilization For the Purpose of:: To increase ROM, To improve nutrient delivery to tissue, To increase oxygenation perfusion, To improve muscle performance and motor function, To improve ability to perform ADL's, To increase tolerance to activity/condition/position, To improve performance and independence with ADL's, To decrease level of supervision to perform tasks, To improve ability of physical actions for home/community/work/leisure, To improve gait and locomotor functions, To improve health of tissue, To decrease soft tissue restriction, To increase flexibility/ROM, To improve endurance, To improve balance, To improve safety with gait Please do not hesitate to contact me at [phone] by phone or if you have questions or concerns regarding this new plan of care! Sincerely, Haresh Granados DPT
== END 2020-04-15 17:00 | disposition home or self-care (01) ==
LOC: SP 14:00
PROVIDERS: PCP Family Medicine; Referring Provider Family Medicine; Visit Provider Family Medicine
DX: S06.9X9D Unspecified intracranial injury with loss of consciousness of unspecified duration, subsequent encounter (principal)
CPT/HCPCS: 92507; 92523; 97110; 97112; 97116; 97140; 97161; 97530